=== PATIENT | female | born 1945 | race Caucasian/White ===

== ENCOUNTER → 2016-08-12 | Outpatient (CLI) | payer MEDICARE ==
--- NOTE | 2016-08-13 10:59 | MM ---
Reason for exam: screening (asymptomatic). Last mammogram was performed 1 year and 2 months ago. History: Patient is postmenopausal and history of other cancer. Physical Findings: A clinical breast exam by your physician is recommended on an annual basis and results should be correlated with mammographic findings. MG 3D Screening Mammo W/Cad Bilateral CC and MLO view(s) were taken. Prior study comparison: May 30, 2015, bilateral MG screening mammo w CAD. January 03, 2014, right breast MG work up mamm w CAD RT. December 21, 2013, bilateral MG screening mammo w CAD. There are scattered fibroglandular densities. Finding: There are typically benign dystrophic, round calcifications in the right breast. There is no discrete abnormality. ASSESSMENT: Benign, BI-RAD 2 RECOMMENDATION: Routine screening mammogram of both breasts in 1 year.
== END | disposition home or self-care (01) ==
LOC: RADMAMWWP 09:19
PROVIDERS: ATTEND Internal Medicine
DX: Z12.31 Encounter for screening mammogram for malignant neoplasm of breast (principal)
CPT/HCPCS: 77063; G0202

== ENCOUNTER → 2017-04-15 | Outpatient (CLI) | payer MEDICARE ==
--- NOTE | 2017-04-15 15:12 | US ---
EXAMINATION TYPE: US thyroid st tissue head/neck DATE OF EXAM: 04/15/2017 COMPARISON: NONE CLINICAL HISTORY: E04.9 thyroid nodule. left thyroidectomy, enlarged gland GLAND SIZE: Right Lobe: 6.3 x 4.1 x 3.1 cm Overall Parenchyma: heterogenous Left Lobe: N/A Isthmus Thickness: 1.3 cm NODULES RIGHT: # of nodules measured on right: 1 - previous biopsy 1. 4.3 x X 5.0 x 3.3 cm hypoechoic solid nodule at the mid pole with well-defined margins. This n odule is wider than tall and shows intranodular vascularity. Prior size: EXPORT AGENT recently LEFT: removed ISTHMUS: # of nodules measured in the isthmus: 0 Bilateral neck scanned, no evidence of lymphadenopathy. IMPRESSION: Previously biopsied nodule right thyroid lobe. Left-sided thyroidectomy changes.
== END | disposition home or self-care (01) ==
LOC: RADUSWWP 14:04
PROVIDERS: ATTEND Internal Medicine
DX: E04.1 Nontoxic single thyroid nodule (principal); Z90.89 Acquired absence of other organs
CPT/HCPCS: 76536

== ENCOUNTER → 2017-06-03 | Outpatient (CLI) | payer MEDICARE ==
[2017-06-03 09:50] LABS: Basophils # (A) 0.1 k/uL (0-0.2); Basophils % (A) 1 %; Eosinophils # (A) 0.2 k/uL (0-0.7); Eosinophils % (A) 3 %; HCT 39.3 % (34.0-46.0); HGB 12.4 gm/dL (11.4-16.0); Hypochromasia Slight; Lymphocytes # (A) 1.9 k/uL (1.0-4.8); Lymphocytes % (A) 28 %; MCH 25.2 pg (25.0-35.0); MCHC 31.5 g/dL (31.0-37.0); Mean Platelet Volume 7.3; Monocytes # (A) 0.4 k/uL (0-1.0); Monocytes % (A) 5 %; Neutrophils # (A) 4.3 k/uL (1.3-7.7); Neutrophils % (A) 62 %; Platelet Count 195 k/uL (150-450); RBC 4.91 m/uL (3.80-5.40); RDW 15.8 % (11.5-15.5); WBC 6.9 k/uL (3.8-10.6)
[2017-06-03 10:11] LABS: Appearance,Urine Cloudy (Clear); Bacteria,Urine Occasional /hpf; Bilirubin,Urine Negative (Negative); Blood,Urine Small (Negative); Color,Urine Yellow; Glucose,Urine (UA) Negative (Negative); Ketones,Urine Negative (Negative); Leukocyte Esterase,Urine Large (Negative); Mucus,Urine Occasional /hpf; Nitrite,Urine Negative (Negative); Protein,Urine Negative (Negative); RBC,Urine 3 /hpf (0-5); Specific Gravity,Urine 1.015 (1.001-1.035); Squamous Epithelial Cell,Urine 5 /hpf (0-4); Urobilinogen,Urine <2.0 mg/dL (<2.0); WBC,Urine 12 /hpf (0-5)
[2017-06-03 10:19] LABS: ALT 59 U/L (9-52); AST 35 U/L (14-36); Alkaline Phosphatase 76 U/L (38-126); Anion Gap 10 mmol/L; Blood Urea Nitrogen 15 mg/dL (7-17); Calcium 9.6 mg/dL (8.4-10.2); Carbon Dioxide 28 mmol/L (22-30); Chloride 104 mmol/L (98-107); Cholesterol 195 mg/dL (<200); Glucose 106 mg/dL (74-99); HDL Cholesterol 40 mg/dL (40-60); LDL Cholesterol,Calculated 127 mg/dL (0-99); Potassium 4.1 mmol/L (3.5-5.1); Sodium 142 mmol/L (137-145); Total Bilirubin 0.5 mg/dL (0.2-1.3); Triglycerides 141 mg/dL (<150)
[2017-06-03 10:35] LABS: T4, Free (Free Thyroxine) 0.99 ng/dL (0.78-2.19)
[2017-06-03 16:02] LABS: Thyroid Peroxidase Antibodies 29.8 U/mL (0.0-60.0); Vitamin D 25 Hydroxy 32.4 ng/mL (30.0-100.0)
== END | disposition home or self-care (01) ==
LOC: LABWHC1 08:53
PROVIDERS: ATTEND Internal Medicine
DX: E55.9 Vitamin D deficiency, unspecified (principal); I10 Essential (primary) hypertension; E04.9 Nontoxic goiter, unspecified; R82.79 Other abnormal findings on microbiological examination of urine
CPT/HCPCS: 36415; 80053; 80061; 81001; 82306; 84439; 84443; 84481; 85025; 86376; 86800; 87086

== ENCOUNTER 2017-06-05 13:32 | Day surgery (SDC) | payer MEDICARE ==
[2017-06-05 12:21] VITALS: BP 146/79; PULSE 79; RESP 20; TEMP 98.1
--- NOTE | 2017-06-05 13:17 | US ---
ULTRASOUND GUIDED FNA THYROID BIOPSY: CLINICAL HISTORY: Large right thyroid nodule FINDINGS: The procedure was explained to the patient. The risks, complications, benefits and alternatives were discussed and any questions were answered. Informed consent was obtained. Patient was placed supin e on the ultrasound table and prepped and draped in the usual sterile fashion. Utilizing a 25 gauge needle, five passes were made into the requested right thyroid nodule. Patient was stable throughout the procedure. Pathology is pending. All elements of maximal barrier technique were utilized. IMPRESSION: 1. Successful ultrasound guided FNA thyroid biopsy.
== END 2017-06-05 13:35 | disposition home or self-care (01) ==
LOC: RADPROMAIN 13:32
PROVIDERS: ATTEND Otolaryngology
DX: E04.1 Nontoxic single thyroid nodule (principal)
CPT/HCPCS: 10022; 76942; 88173; 88305

== ENCOUNTER → 2017-06-07 | Outpatient (CLI) | payer MEDICARE ==
--- NOTE | 2017-06-09 08:12 | PE ---
EXAMINATION TYPE: PET CT fusion whole body DATE OF EXAM: 06/07/2017 CLINICAL HISTORY: 71-year-old female initial staging for melanoma. Patient with initial left leg surg johnson in December 2014. TECHNIQUE: Following the intravenous administration of 14.1 mCi of F-18 FDG, whole body images are performed from the skull vertex through the bilateral lower extremities. Images are reviewed on the [employer] in the coronal, axial, and sagittal planes. Reconstructed rotating images are created on ind [employer] workstation and reviewed on the computer. A localization and attenuation correction CT is performed in conjunction with the PET scan. Glucose level: 92 mg/dL CTDI: 4.98 / 3.11 mGy DLP: 501.93 / 272.51 mGy-cm COMPARISON: None. FINDINGS: PET: Heterogeneous enlargement of the right lobe of the thyroid gland measuring up to 4.6 cm. There is avery e heterogeneous mild increased uptake here, max SUV 2.8. There is an ametabolic subpleural lipoma measuring 4.8 cm along the left anterolateral chest. Otherw ise, physiologic FDG uptake within the neck and chest. Normal variation mild heterogeneous FDG uptake within the liver. A 1.8 cm low-density nodule in the right adrenal gland with attenuation of -5 Hounsfield units most s uggestive of a lipid rich adrenal adenoma. No FDG uptake here. Tiny subcentimeter hypodensity exophytic from the medial mid pole left kidney too small for accurate CT characterization. No discrete FDG uptake here, likely cyst. There is a moderate to intense short segment foci of FDG uptake within the distal sigmoid and rectum likely physiologic uptake. Otherwise, physiologic FDG uptake within the abdomen and pelvis. Examination of the legs shows degenerative uptake at the knees with moderate effusions. Foci of mild increased FDG uptake within the feet, particularly along the lateral dorsum of the left hindfoot, medial dorsum of the bilateral feet, and the medial plantar aspect of the right forefoot. C T shows no discrete skin lesions and uptake appears to localize to the musculature. Max SUV 2.2. This can be correlated with direct visualization. ATTENUATION CORRECTION CT: Evaluation of brain shows no midline shift, extra-axial fluid collection, or hydrocephalus. Paranasal sinuses and mastoid air cells are clear. No cervical lymphadenopathy. Heterogeneously enlarged right lobe of the thyroid gland as mentioned ab ove. Heart upper limits of normal in size with trace anterior basilar pericardial fluid. Ascending aorta ectatic 3.7 cm with conventional arch vessel branching anatomy. No thoracic lymphadenopathy. Mild dif fuse bronchial wall thickening could represent bronchitis or asthma. No consolidation or pleural effu lai. No dilated small bowel, free fluid, or free air. No mesenteric or retroperitoneal lymphadenopathy. No abnormal fluid collection in the pelvis. Uterus surgically absent. Pelvic phleboliths. Bilateral lower extremities demonstrate moderate knee effusions with associated degenerative change. No significant soft tissue abnormality seen. Bones: Degenerative changes at the hips and within the lower lumbar spine. Endplate spondylosis mid t o lower thoracic spine. IMPRESSION: 1. Variable short segment hypermetabolism in the distal sigmoid and rectum likely physiologic uptake. Direct visualization can be performed if the patient is not undergoing routine screening colonoscopy . 2. Heterogeneous enlargement of the right lobe of the thyroid gland measuring up to 4.6 cm. There is only mild FDG uptake here. Correlate with results of patient's FNA. 3. Foci of is mild increased uptake along the dorsum of the left greater than right hindfeet and with in the medial plantar right forefoot. Findings likely on a degenerative basis. Correlate with physica l exam findings to exclude any cutaneous lesions here. 4. Otherwise, no suspicious hypermetabolism to suggest metastatic disease. 5. Incidental: 1.8 cm benign lipid rich right adrenal adenoma.
== END | disposition home or self-care (01) ==
LOC: RADPETMAIN 07:28
PROVIDERS: ATTEND Internal Medicine
DX: Z08 Encounter for follow-up examination after completed treatment for malignant neoplasm (principal); E04.1 Nontoxic single thyroid nodule; R93.7 Abnormal findings on diagnostic imaging of other parts of musculoskeletal system; Z85.828 Personal history of other malignant neoplasm of skin
CPT/HCPCS: 78816; A9552

== ENCOUNTER → 2018-04-15 | Outpatient (CLI) | payer MEDICARE ==
--- NOTE | 2018-04-15 15:48 | US ---
EXAMINATION TYPE: US thyroid st tissue head/neck DATE OF EXAM: 04/15/2018 COMPARISON: US 2017 CLINICAL HISTORY: E04.1 Thyroid nodule. Thyroid nodule, left lobe removed 15-20 years ago, history of thyroid biopsy GLAND SIZE: Right Lobe: 6.3 x 2.9 x 5.1 cm Overall Parenchyma: heterogenous Left Lobe: removed Isthmus Thickness: 0.5 cm NODULES RIGHT: # of nodules measured on right: 1 1. 4.9 X 2.8 x 5.1 cm hypoechoic solid nodule at the mid pole with well-defined margins. This nodul e is wider than tall and shows intranodular vascularity. Prior size: 4.3 x 5.0 x 3.3 cm LEFT: # of nodules measured on left: 0 ISTHMUS: # of nodules measured in the isthmus: 0 Bilateral neck scanned, no evidence of lymphadenopathy. IMPRESSION: 1. Changes of left-sided thyroidectomy. 2. Increase in size and not solid nodule right thyroid lobe which has been biopsied previously.
== END | disposition home or self-care (01) ==
LOC: RADUSWWP 15:01
PROVIDERS: ATTEND Otolaryngology
DX: E04.1 Nontoxic single thyroid nodule (principal); E89.0 Postprocedural hypothyroidism
CPT/HCPCS: 76536

== ENCOUNTER → 2018-04-15 | Outpatient (CLI) | payer MEDICARE ==
--- NOTE | 2018-04-17 12:19 | MM ---
Reason for exam: screening (asymptomatic). Last mammogram was performed 1 year and 8 months ago. History: Patient is postmenopausal and history of other cancer. Physical Findings: A clinical breast exam by your physician is recommended on an annual basis and results should be correlated with mammographic findings. MG 3D Screening Mammo W/Cad Bilateral CC and MLO view(s) were taken. Prior study comparison: August 12, 2016, bilateral MG 3d screening mammo w/cad. May 30, 2015, bilateral MG screening mammo w CAD. The breast tissue is heterogeneously dense. This may lower the sensitivity of mammography. There is a new 6mm group of calcifications in the upper inner quadrant at middle depth is seen. Additionally re-evaluation of an 8mm group of calcifications in the upper inner quadrant at middle depth just posterior to the first group is suggested as small rounded masses appear to be associated. No suspicious abnormality left breast. ASSESSMENT: Incomplete: need additional imaging evaluation, BI-RAD 0 RECOMMENDATION: Special view mammogram of the right breast. [facility] will attempt to contact patient to return for supplemental views.
== END | disposition home or self-care (01) ==
LOC: RADMAMWWP 14:58
PROVIDERS: ATTEND Internal Medicine
DX: Z12.31 Encounter for screening mammogram for malignant neoplasm of breast (principal)
CPT/HCPCS: 77063; 77067

== ENCOUNTER → 2018-04-24 | Outpatient (CLI) | payer MEDICARE ==
--- NOTE | 2018-04-24 14:49 | MM ---
Reason for exam: additional evaluation requested from abnormal screening. Last mammogram was performed less than 1 month ago. History: Patient is postmenopausal and history of other cancer. Physical Findings: Nurse did not find any significant physical abnormalities on exam. MG 3D Work Up W/Cad RT CC with magnification, LM with magnification, and LM view(s) were taken of the right breast. Prior study comparison: April 15, 2018, bilateral MG 3d screening mammo w/cad. August 12, 2016, bilateral MG 3d screening mammo w/cad. The breast tissue is heterogeneously dense. This may lower the sensitivity of mammography. There are coarse heterogeneous calcifications at middle depth associated with a focal asymmetry retrospectively similar to exams back to 2013. No suspicious abnormality. These results were verbally communicated with the patient and result sheet given to the patient on 04/24/18. ASSESSMENT: Benign, BI-RAD 2 RECOMMENDATION: Return to routine screening mammogram schedule for both breasts.
== END ==
LOC: RADMAMWWP 13:58
PROVIDERS: ATTEND Internal Medicine
DX: R92.8 Other abnormal and inconclusive findings on diagnostic imaging of breast (principal)
CPT/HCPCS: 77065; G0279; 77061

== ENCOUNTER 2018-05-08 06:49 | Day surgery (SDC) | payer MEDICARE ==
[2018-05-06 11:34] VITALS: BMI 44.4
[~2018-05-08 06:49] MED LIST: LACTATED RINGERS 1,000 ML IV SCH
[2018-05-08 07:04] VITALS: TEMP 97.8
[2018-05-08] MEDS ORDERED: LACTATED RINGERS 1,000 ML IV ONE (07:06)
[2018-05-08] MEDS ORDERED: LIDOCAINE 1% 20 ML VIAL (10MG/ML) FOR IV START INTRADERMA ONE (07:07)
[2018-05-08 07:14] LABS: Glucose,Whole Blood 112 mg/dL (75-99)
[2018-05-08] MEDS ORDERED: PROPOFOL 10 MG/ML 20 ML VIAL IV ONE (07:37)
--- NOTE | 2018-05-08 07:56 | P.PCN ---
Date of Procedure: 05/08/18 Procedure(s) Performed: BRIEF HISTORY: Patient is a 72-year-old pleasant white female, scheduled for an elective colonoscopy as a part of evaluation of chronic diarrhea and intermittent rectal bleeding for the last 6 months duration. PROCEDURE PERFORMED: Colonoscopy with random biopsies. PREOPERATIVE DIAGNOSIS: Chronic diarrhea and intermittent rectal bleeding of 6 months duration. IV sedation per Anesthesia. PROCEDURE: After informed consent was obtained, the patient, was brought into the endoscopy unit. IV sedation was administered by Anesthesia under continuous monitoring. Digital rectal examination was normal. Initially the Olympus CF- 160 flexible video colonoscope was then inserted in the rectum, gradually advanced into the cecum without any difficulty. Careful examination was performed as the scope was gradually being withdrawn. Ileocecal valve and the appendiceal orifice were visualized and appeared normal. Prep was excellent. Mucosa of the cecum, ascending colon, transverse colon, descending colon, sigmoid colon, and rectum appeared normal. Random biopsies were done from ascending and descending colon to rule out microscopic/collagenous colitis. Retroflexion was performed in the rectum and small internal hemorrhoids were seen. The patient tolerated the procedure well. IMPRESSION: Normal-appearing colon from rectum to cecum with no evidence of colorectal neoplasia . Small internal hemorrhoids. RECOMMENDATIONS: Findings of this examination were discussed with the patient as well as his family. She was advised to follow with the biopsy results. She can have a repeat screening colonoscopy in 10 years..
[2018-05-08 08:07] VITALS: RESP 16
[2018-05-08 08:13] VITALS: BP 162/92; PULSE 72
== END 2018-05-08 08:35 | disposition home or self-care (01) ==
LOC: ORWHC2ENDO 06:49
PROVIDERS: ATTEND Internal Medicine Gastroenterology
DX: K52.9 Noninfective gastroenteritis and colitis, unspecified (principal); K64.8 Other hemorrhoids; I10 Essential (primary) hypertension; E78.49 Other hyperlipidemia; E11.9 Type 2 diabetes mellitus without complications; E05.90 Thyrotoxicosis, unspecified without thyrotoxic crisis or storm; K21.9 Gastro-esophageal reflux disease without esophagitis; Z79.84 Long term (current) use of oral hypoglycemic drugs; Z79.82 Long term (current) use of aspirin; Z79.899 Other long term (current) drug therapy; Z88.2 Allergy status to sulfonamides
CPT/HCPCS: 88305; 45380; J2704

== ENCOUNTER 2018-05-28 21:58 | Emergency (ER) | payer MEDICARE ==
--- NOTE | 2018-05-28 23:03 | ED ---
Chest Pain HPI - General Chief Complaint: Chest Pain Stated Complaint: Chest pain Time Seen by Provider: 05/28/18 22:22 Source: patient Mode of arrival: wheelchair Limitations: no limitations - History of Present Illness Initial Comments: This patient is 72-year-old woman who presents to be evaluate for episode chest pain that started around 9 PM. She states that she had been sitting and watching television. She states that it felt like the pain was across the entire chest bilaterally. She described as an aching, and then it was constant but then it did resolve. She states that she had tried to take a shower and this may have contributed to it resolving. The patient had told the triage personnel that she was having shortness of breath. Further discussion reveals that she was not frankly dyspneic but she had the sensation that when she tried to draw full breath that would catch. There was no diaphoresis. No nausea or vomiting. No lightheadedness, palpitations, or syncope. MD Complaint: chest pain -: hour(s) Onset: during rest Pain Location: left chest, right chest Pain Radiation: none Severity: mild Quality: aching Consistency: now resolved Improves With: nothing Worsens With: nothing Treatments Prior to Arrival: none - Related Data Home Medications Medication Instructions Recorded Confirmed Cholecalciferol [Vitamin D3] 2,000 unit PO DAILY 01/12/15 05/28/18 Lisinopril [Prinivil] 20 mg PO DAILY 01/12/15 05/28/18 metFORMIN HCL [Glucophage] 1,000 mg PO DAILY PRN 01/12/15 05/28/18 Aspirin EC [Ecotrin Low Dose] 81 mg PO DAILY 05/06/18 05/28/18 Atorvastatin [Lipitor] 20 mg PO HS 05/06/18 05/28/18 [place]-3 Fatty Acids/Fish Oil 1 cap PO DAILY 05/06/18 05/28/18 [[place]-3 Fish Oil 1,200 mg Sfgl] Vitamin B Complex 1 cap PO DAILY 05/28/18 05/28/18 Allergies Allergy/AdvReac Type Severity Reaction Status Date / Time Sulfa (Sulfonamide Allergy Rash/Hives Verified 05/28/18 22:39 Antibiotics) Review of Systems ROS Statement: Those systems with pertinent positive or pertinent negative responses have been documented in the HPI. ROS Other: All systems not noted in ROS Statement are negative. Constitutional: Denies: fever, chills, weakness Respiratory: Denies: cough, dyspnea, wheezes Cardiovascular: Reports: as per HPI, chest pain. Denies: palpitations, orthopnea, edema, syncope Gastrointestinal: Denies: abdominal pain, nausea, vomiting Genitourinary: Denies: dysuria, hematuria Musculoskeletal: Denies: back pain Skin: Denies: rash Neurological: Denies: headache, weakness, numbness EKG Findings - EKG Results: EKG: interpreted by ERMD, sinus rhythm (Rate 89 bpm) - Blocks, [place], Hypertrophy, ST Abn: AV and intraventricular conduction: right bundle branch block (fixed/ intermittent, complete/incomplete) QRS axis and voltage: left axis deviation (-30 to -90) Past Medical History Past Medical History: Cancer, Diabetes Mellitus, GERD/Reflux, Hyperlipidemia, Hypertension, Thyroid Disorder Additional Past Medical History / Comment(s): occas. palpitations. Hx. melanoma , overactive thyroid History of Any Multi-Drug Resistant Organisms: None Reported Past Surgical History: Cholecystectomy, Hysterectomy Additional Past Surgical History / Comment(s): L thyroidectomy, skin cancer removed, COLONOSCOPY Past Anesthesia/Blood Transfusion Reactions: No Reported Reaction Additional Past Anesthesia/Blood Transfusion Reaction / Comment(s): no blood transfusion Past Psychological History: No Psychological Hx Reported Smoking Status: Former smoker Past Alcohol Use History: None Reported Past Drug Use History: None Reported - Past Family History Mother Family Medical History: No Reported History General Exam Limitations: no limitations General appearance: alert, in no apparent distress Head exam: Present: atraumatic, normocephalic Eye exam: Present: normal appearance. Absent: scleral icterus, conjunctival injection ENT exam: Present: normal oropharynx Neck exam: Present: normal inspection Respiratory exam: Present: normal lung sounds bilaterally. Absent: respiratory distress, wheezes, rales, rhonchi, stridor Cardiovascular Exam: Present: regular rate, normal rhythm, normal heart sounds. Absent: systolic murmur, diastolic murmur, rubs, gallop GI/Abdominal exam: Present: soft. Absent: distended, tenderness, guarding, rebound, mass Extremities exam: Present: normal inspection, normal capillary refill. Absent: pedal edema, calf tenderness Back exam: Present: normal inspection. Absent: CVA tenderness (R), CVA tenderness (L) Neurological exam: Present: alert Skin exam: Present: warm, dry, intact, normal color. Absent: rash Course Vital Signs 05/28/18 05/28/18 05/28/18 22:04 22:30 23:00 Temperature 98.8 F Pulse Rate 86 83 73 Respiratory 20 17 18 Rate Blood Pressure 161/81 158/92 156/83 O2 Sat by Pulse 96 93 L 95 Oximetry Chest Pain MDM - [facility] Patient is 72-year-old woman presenting with chest pain that has resolved. Discussed results with the patient and did recommend admission for observation overnight with serial cardiac enzymes. The patient understands that she does have risk factor for cardiac disease. She states that she is feeling well at this time and would like to go home but she does agree to return should any symptoms recur. 4 should new symptoms develop. She will call the cardiology office in the morning to schedule close follow-up. We discussed return parameters. Disposition Clinical Impression: Chest pain Disposition: HOME SELF-CARE Condition: Good Instructions: Chest Pain (ED) Is patient prescribed a controlled substance at d/c from ED?: No Referrals: Julio C Honeycutt MD [Primary Care Provider] - 1-2 days Vicky Perez MD [STAFF PHYSICIAN] - 1-2 days
[2018-05-28 23:12] VITALS: RESP 18
--- NOTE | 2018-05-28 23:20 | XR ---
EXAMINATION TYPE: XR chest 2V DATE OF EXAM: 05/28/2018 COMPARISON: NONE HISTORY: Chest pain TECHNIQUE: Frontal and lateral views of the chest are obtained. FINDINGS: Heart and mediastinum are normal. Lungs are clear. Diaphragm is normal. Bony thorax is int act. IMPRESSION: No cardiopulmonary disease.
[2018-05-29 00:06] LABS: Basophils % (A) 0 %; Eosinophils # (A) 0.3 k/uL (0-0.7); Eosinophils % (A) 3 %; HCT 39.5 % (34.0-46.0); HGB 13.1 gm/dL (11.4-16.0); Lymphocytes # (A) 2.4 k/uL (1.0-4.8); Lymphocytes % (A) 24 %; MCHC 33.2 g/dL (31.0-37.0); MCV 78.2 fL (80.0-100.0); Microcytosis Slight; Monocytes # (A) 0.5 k/uL (0-1.0); Monocytes % (A) 5 %; Neutrophils % (A) 68 %; Platelet Count 203 k/uL (150-450); RBC 5.05 m/uL (3.80-5.40); RDW 15.5 % (11.5-15.5); WBC 10.3 k/uL (3.8-10.6)
[2018-05-29 00:18] LABS: ALT 56 U/L (9-52); AST 36 U/L (14-36); Albumin 4.3 g/dL (3.5-5.0); Alkaline Phosphatase 83 U/L (38-126); Anion Gap 10 mmol/L; Blood Urea Nitrogen 21 mg/dL (7-17); Calcium 9.9 mg/dL (8.4-10.2); Carbon Dioxide 27 mmol/L (22-30); Chloride 105 mmol/L (98-107); Glucose 162 mg/dL (74-99); Magnesium 1.7 mg/dL (1.6-2.3); Sodium 142 mmol/L (137-145); Total Bilirubin 0.4 mg/dL (0.2-1.3); Total Protein 7.2 g/dL (6.3-8.2)
[2018-05-29 00:29] LABS: Creatine Kinase 115 U/L (30-135)
[2018-05-29 00:38] LABS: D-Dimer 0.33 mg/L FEU (<0.60); Partial Thromboplastin Time 27.6 sec (22.0-30.0); Prothrombin Time 10.3 sec (9.0-12.0)
[2018-05-29 00:42] LABS: Creatine Kinase MB 1.2 ng/mL (0.0-2.4); Troponin I <0.012 ng/mL (0.000-0.034)
[2018-05-29 01:27] VITALS: BP 159/95; PULSE 68; TEMP 98.2
== END 2018-05-29 01:27 | disposition home or self-care (01) ==
LOC: EC 21:58
DX: R07.9 Chest pain, unspecified (principal); R06.9 Unspecified abnormalities of breathing; E78.5 Hyperlipidemia, unspecified; I10 Essential (primary) hypertension; E11.9 Type 2 diabetes mellitus without complications; Z87.891 Personal history of nicotine dependence; Z88.2 Allergy status to sulfonamides; Z79.82 Long term (current) use of aspirin; Z79.84 Long term (current) use of oral hypoglycemic drugs; Z79.899 Other long term (current) drug therapy; Z85.820 Personal history of malignant melanoma of skin; Z98.890 Other specified postprocedural states
CPT/HCPCS: 36415; 71046; 80053; 82550; 82553; 83735; 84484; 85025; 85379; 85610; 85730; 93005; 99285

== ENCOUNTER 2018-09-02 17:03 | Observation (INO) | payer MEDICARE ==
[2018-09-02] MEDS ORDERED: ASPIRIN 81 MG PO STA (17:18)
[2018-09-02] MEDS ORDERED: NITROGLYCERIN OINT 1 INCH/GM PACKET TOPICAL STA (17:18)
--- NOTE | 2018-09-02 17:22 | ED ---
General Adult HPI - General Chief complaint: Chest Pain Stated complaint: Chest pain, headache Time Seen by Provider: 09/02/18 17:05 Source: patient, RN notes reviewed Mode of arrival: ambulatory Limitations: no limitations - History of Present Illness Initial comments: This is a 73-year-old female with past medical history significant for diabetes hypertension high cholesterol. Patient also has a strong family history of heart disease. Patient states today while she was in the car she started having a flushed feeling and tingling all over body and up into her chest and she stated she felt a little lightheaded and possibly near syncopal. She had a few of these events and then he started to be associated with chest pain which radiated to her neck. Patient states she was also mildly diaphoretic with some of the chest pain episodes. Patient states she had no shortness of breath she had no nausea. Patient denies any abdominal pain. Patient states currently she is back to her baseline has no symptoms. Patient never felt any palpitations. Patient denies any headache patient denies any numbness or weakness. Patient denies any leg swelling or calf tenderness. Patient denies any abdominal pain. Patient denies any vomiting or diarrhea recently. Patient denies any recent fever chills or cough. - Related Data Home Medications Medication Instructions Recorded Confirmed Lisinopril [Prinivil] 20 mg PO DAILY 01/12/15 09/02/18 metFORMIN HCL [Glucophage] 500 mg PO BID 01/12/15 09/02/18 Aspirin EC [Ecotrin Low Dose] 81 mg PO DAILY 05/06/18 09/02/18 Atorvastatin [Lipitor] 20 mg PO HS 05/06/18 09/02/18 Etoile-3 Fatty Acids/Fish Oil 1 cap PO DAILY 05/06/18 09/02/18 [Etoile-3 Fish Oil 1,200 mg Sfgl] Vitamin B Complex 1 cap PO DAILY 05/28/18 09/02/18 Allergies Allergy/AdvReac Type Severity Reaction Status Date / Time Sulfa (Sulfonamide Allergy Rash/Hives Verified 09/02/18 18:18 Antibiotics) Review of Systems ROS Statement: Those systems with pertinent positive or pertinent negative responses have been documented in the HPI. ROS Other: All systems not noted in ROS Statement are negative. Past Medical History Past Medical History: Cancer, Diabetes Mellitus, GERD/Reflux, Hyperlipidemia, Hypertension, Thyroid Disorder Additional Past Medical History / Comment(s): occas. palpitations. Hx. melanoma, overactive thyroid History of Any Multi-Drug Resistant Organisms: None Reported Past Surgical History: Cholecystectomy, Hysterectomy Additional Past Surgical History / Comment(s): L thyroidectomy, skin cancer removed, COLONOSCOPY Past Anesthesia/Blood Transfusion Reactions: No Reported Reaction Additional Past Anesthesia/Blood Transfusion Reaction / Comment(s): no blood transfusion Past Psychological History: No Psychological Hx Reported Smoking Status: Former smoker Past Alcohol Use History: None Reported Past Drug Use History: None Reported - Past Family History Mother Family Medical History: No Reported History General Exam - General Exam Comments Initial Comments: GENERAL: Patient is well-developed and well-nourished. Patient is nontoxic and well- hydrated and is in mild distress. ENT: Neck is soft and supple. No significant lymphadenopathy is noted. Oropharynx is clear. Moist mucous membranes. Neck has full range of motion without anthony citing any pain. EYES: The sclera were anicteric and conjunctiva were pink and moist. Extraocular movements were intact and pupils were equal round and reactive to light. Eyelids were unremarkable. PULMONARY: Unlabored respirations. Good breath sounds bilaterally. No audible rales rhonchi or wheezing was noted. CARDIOVASCULAR: There is a regular rate and rhythm without any murmurs gallops or rubs. ABDOMEN: Soft and nontender with normal bowel sounds. No palpable organomegaly was noted . There is no palpable pulsatile mass. SKIN: Skin is clear with no lesions or rashes and otherwise unremarkable. NEUROLOGIC: Patient is alert and oriented x3. Cranial nerves II through XII are grossly intact. Motor and sensory are also intact. Normal speech, volume and content. Symmetrical smile. MUSCULOSKELETAL: Normal extremities with adequate strength and full range of motion. No lower extremity swelling or edema. No calf tenderness. LYMPHATICS: No significant lymphadenopathy is noted PSYCHIATRIC: Normal psychiatric evaluation. 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 Patient's EKG shows right bundle-branch block. Patient had no episode of chest discomfort again in the emergency department and a heart rate was up about 150. When I looked at the rhythm strip it look like potential atrial flutter so I started the patient heparin and started Cardizem drip. I spoke with Dr. Gutierres agreed to admit the patient admitted the patient I continue the heparin the Cardizem drip on the floor. I consult cardiology. I wrote admitting orders. - Lab Data Result diagrams: 09/02/18 17:40 09/02/18 17:40 Lab Results 09/02/18 09/02/18 09/02/18 Range/Units 17:40 17:40 17:40 WBC 12.2 H (3.8-10.6) k/uL RBC 5.09 (3.80-5.40) m/uL Hgb 12.4 (11.4-16.0) gm/dL Hct 39.1 (34.0-46.0) % MCV 76.9 L (80.0-100.0) fL MCH 24.4 L (25.0-35.0) pg MCHC 31.8 (31.0-37.0) g/dL RDW 15.6 H (11.5-15.5) % Plt Count 202 (150-450) k/uL Neutrophils % (Manual) 65 % Band Neutrophils % 1 % Lymphocytes % (Manual) 25 % Monocytes % (Manual) 4 % Eosinophils % (Manual) 4 % Basophils % (Manual) 1 % Neutrophils # (Manual) 8.00 H (1.3-7.7) k/uL Lymphocytes # (Manual) 3.05 (1.0-4.8) k/uL Monocytes # (Manual) 0.49 (0-1.0) k/uL Eosinophils # (Manual) 0.49 (0-0.7) k/uL Basophils # (Manual) 0.12 (0-0.2) k/uL Nucleated RBCs 0 (0-0) /100 WBC Manual Slide Review Performed Microcytosis Slight PT 10.2 (9.0-12.0) sec INR 0.9 (<1.2) APTT 27.2 (22.0-30.0) sec Sodium 141 (137-145) mmol/L Potassium 4.5 (3.5-5.1) mmol/L Chloride 106 (98-107) mmol/L Carbon Dioxide 22 (22-30) mmol/L Anion Gap 13 mmol/L BUN 18 H (7-17) mg/dL Creatinine 0.75 (0.52-1.04) mg/dL Est GFR (CKD-EPI)AfAm >90 (>60 ml/min/1.73 sqM) Est GFR (CKD-EPI)NonAf 79 (>60 ml/min/1.73 sqM) Glucose 124 H (74-99) mg/dL Calcium 9.9 (8.4-10.2) mg/dL Magnesium 1.5 L (1.6-2.3) mg/dL Total Bilirubin 0.8 (0.2-1.3) mg/dL AST 43 H (14-36) U/L ALT 33 (9-52) U/L Alkaline Phosphatase 87 (38-126) U/L Troponin I (0.000-0.034) ng/mL Total Protein 7.5 (6.3-8.2) g/dL Albumin 4.5 (3.5-5.0) g/dL 09/02/18 Range/Units 17:40 WBC (3.8-10.6) k/uL RBC (3.80-5.40) m/uL Hgb (11.4-16.0) gm/dL Hct (34.0-46.0) % MCV (80.0-100.0) fL MCH (25.0-35.0) pg MCHC (31.0-37.0) g/dL RDW (11.5-15.5) % Plt Count (150-450) k/uL Neutrophils % (Manual) % Band Neutrophils % % Lymphocytes % (Manual) % Monocytes % (Manual) % Eosinophils % (Manual) % Basophils % (Manual) % Neutrophils # (Manual) (1.3-7.7) k/uL Lymphocytes # (Manual) (1.0-4.8) k/uL Monocytes # (Manual) (0-1.0) k/uL Eosinophils # (Manual) (0-0.7) k/uL Basophils # (Manual) (0-0.2) k/uL Nucleated RBCs (0-0) /100 WBC Manual Slide Review Microcytosis PT (9.0-12.0) sec INR (<1.2) APTT (22.0-30.0) sec Sodium (137-145) mmol/L Potassium (3.5-5.1) mmol/L Chloride (98-107) mmol/L Carbon Dioxide (22-30) mmol/L Anion Gap mmol/L BUN (7-17) mg/dL Creatinine (0.52-1.04) mg/dL Est GFR (CKD-EPI)AfAm (>60 ml/min/1.73 sqM) Est GFR (CKD-EPI)NonAf (>60 ml/min/1.73 sqM) Glucose (74-99) mg/dL Calcium (8.4-10.2) mg/dL Magnesium (1.6-2.3) mg/dL Total Bilirubin (0.2-1.3) mg/dL AST (14-36) U/L ALT (9-52) U/L Alkaline Phosphatase (38-126) U/L Troponin I <0.012 (0.000-0.034) ng/mL Total Protein (6.3-8.2) g/dL Albumin (3.5-5.0) g/dL Critical Care Time Critical Care Time: Yes Total Critical Care Time: 35 Disposition Clinical Impression: Atrial flutter with rapid ventricular response Disposition: ADMITTED IP TO THIS HOSP Referrals: Julio C Honeycutt MD [Primary Care Provider] - 1-2 days Time of Disposition: 18:54
[2018-09-02 17:51] LABS: HCT 39.1 % (34.0-46.0); HGB 12.4 gm/dL (11.4-16.0); MCH 24.4 pg (25.0-35.0); MCHC 31.8 g/dL (31.0-37.0); MCV 76.9 fL (80.0-100.0); Mean Platelet Volume 7.5; Microcytosis Slight; Platelet Count 202 k/uL (150-450); RBC 5.09 m/uL (3.80-5.40); RDW 15.6 % (11.5-15.5); WBC 12.2 k/uL (3.8-10.6)
[2018-09-02 17:58] LABS: INR 0.9 (<1.2); Partial Thromboplastin Time 27.2 sec (22.0-30.0); Prothrombin Time 10.2 sec (9.0-12.0)
[2018-09-02 18:04] LABS: ALT 33 U/L (9-52); AST 43 U/L (14-36); Albumin 4.5 g/dL (3.5-5.0); Alkaline Phosphatase 87 U/L (38-126); Anion Gap 13 mmol/L; Blood Urea Nitrogen 18 mg/dL (7-17); Calcium 9.9 mg/dL (8.4-10.2); Carbon Dioxide 22 mmol/L (22-30); Chloride 106 mmol/L (98-107); Glucose 124 mg/dL (74-99); Magnesium 1.5 mg/dL (1.6-2.3); Potassium 4.5 mmol/L (3.5-5.1); Sodium 141 mmol/L (137-145); Total Bilirubin 0.8 mg/dL (0.2-1.3); Total Protein 7.5 g/dL (6.3-8.2)
[2018-09-02] MEDS ORDERED: HEPARIN SODIUM,PORCINE 5,000 UNIT/ML 1 ML VIAL IV ONE (18:04)
[2018-09-02 18:10] LABS: Band Neutrophils % 1 %; Basophils # (M) 0.12 k/uL (0-0.2); Eosinophils # (M) 0.49 k/uL (0-0.7); Lymphocytes # (M) 3.05 k/uL (1.0-4.8); Monocytes # (M) 0.49 k/uL (0-1.0); Neutrophils % (M) 65 %; Nucleated Red Blood Cells 0 /100 WBC (0-0); Total Cells Counted 100
[2018-09-02] MEDS ORDERED: HEPARIN SOD,PORK IN 0.45% NACL 25,000 UNIT in 0.45% NACL 1 250ML.BAG IV SCH (18:15)
[2018-09-02] MEDS ORDERED: DILTIAZEM 125 MG in SODIUM CHLORIDE 0.9% 100 ML IV SCH (18:15)
--- NOTE | 2018-09-02 18:20 | XR ---
EXAMINATION: XR chest 2V DATE AND TIME: 09/02/2018 6:08 PM CLINICAL INDICATION: PHH; Chest Pain TECHNIQUE: Departmental protocol COMPARISON: 05/28/2018 FINDINGS: There is a vague subtle 3 cm opacity superimposed over the left mid lung zone, and not definitely cor roborated on the lateral view. The lungs are negative for pulmonary edema or evidence of pneumonia. The pleural spaces are negative. The cardiac silhouette is not enlarged. The thoracic aorta is mildly tortuous. The skeletal structures and soft tissues are negative for acute findings. IMPRESSION: No definite acute cardiopulmonary process. However, 3 cm subtle opacity noted, for which CT chest w c on is advised for follow-up on a nonurgent basis.
[2018-09-02] MEDS ORDERED: NITROGLYCERIN SL TABS 0.4 MG TAB SUBLINGUAL PRN (18:55)
[2018-09-02] MEDS ORDERED: ATORVASTATIN 20 MG TAB PO SCH (21:00)
[2018-09-02] MEDS: INSULIN ASPART (NovoLOG) 100 UNIT/ML VIAL SQ SCH (23:20)
[2018-09-03] MEDS: NITROGLYCERIN OINT 1 INCH/GM PACKET TOPICAL SCH ×3 (01:57→11:41)
[2018-09-03] MEDS ORDERED: Magnesium Replacement Protocol 1 EACH MISC MISCELLANE PRN (02:05)
[2018-09-03] MEDS: MAGNESIUM SULFATE-D5W PMX 1 GM in DEXTROSE/WATER 1 100ML.BAG IVPB SCH ×2 (02:24→03:48)
[2018-09-03] MEDS ORDERED: HEPARIN SODIUM,PORCINE 5,000 UNIT/ML 1 ML VIAL IV PRN (04:17)
[2018-09-03] MEDS: INSULIN ASPART (NovoLOG) 100 UNIT/ML VIAL SQ SCH ×3 (06:35→17:33)
[2018-09-03 06:36] LABS: Glucose,Whole Blood 112 mg/dL (75-99)
[2018-09-03] MEDS: metFORMIN 500 MG TAB PO SCH ×2 (06:39→17:34)
[2018-09-03 07:38] LABS: Cholesterol 114 mg/dL (<200); HDL Cholesterol 34 mg/dL (40-60); LDL Cholesterol,Calculated 55 mg/dL (0-99); Triglycerides 125 mg/dL (<150)
[2018-09-03] MEDS ORDERED: ASPIRIN 81 MG PO SCH (09:00)
[2018-09-03] MEDS ORDERED: ASPIRIN 325 MG TAB PO SCH (09:00)
[2018-09-03] MEDS ORDERED: LISINOPRIL 20 MG TAB PO SCH (09:00)
[2018-09-03 09:22] VITALS: RESP 18
--- NOTE | 2018-09-03 10:49 | ECHOF ---
Referral Reason:arrythmia MEASUREMENTS -------- HEIGHT: 167.6 cm WEIGHT: 128.8 kg BP: 134/76 RVIDd: 3.1 cm (< 3.3) IVSd: 1.5 cm (0.6 - 1.1) LVIDd: 5.0 cm (3.9 - 5.3) LVPWd: 1.3 cm (0.6 - 1.1) IVSs: 2.0 cm LVIDs: 3.4 cm LVPWs: 1.5 cm LA Diam: 3.6 cm (2.7 - 3.8) LAESV Index (A-L): 25.14 ml/m Ao Diam: 3.2 cm (2.0 - 3.7) AV Cusp: 2.4 cm (1.5 - 2.6) MV EXCURSION: 14.577 mm (> 18.000) MV EF SLOPE: 108 mm/s (70 - 150) EPSS: 0.2 cm MV E Gera: 0.77 m/s MV DecT: 240 ms MV A Gera: 0.82 m/s MV E/A Ratio: 0.94 AV maxP.38 mmHg AV meanP.82 mmHg AR PHT: 513 ms RAP: 5.00 mmHg RVSP: 28.71 mmHg FINDINGS -------- Sinus rhythm. This was a technically adequate study. The left ventricular size is normal. There is moderate concentric left ventricular hypertrophy. O verall left ventricular systolic function is normal with, an EF between 60 - 65 %. The right ventricle is normal in size. Normal LA size by volume 22+/-6 ml/m2. The right atrium is normal in size. Lipomatous Hypertrophy of the atrial septum is present There is mild aortic regurgitation. There is mild aortic stenosis present. Peak/mean gradient acr oss the Aortic Valve is 18.38mmHg / 6.82mmHg. The mitral valve is normal. Mild tricuspid regurgitation present. Right ventricular systolic pressure is normal at < 35 mmHg. The pulmonic valve was not well visualized. The aortic root size is normal. Normal inferior vena cava with normal inspiratory collapse consistent with estimated right atrial pre ssure of 5 mmHg. There is no pericardial effusion. CONCLUSIONS -------- 1. Sinus rhythm. 2. This was a technically adequate study. 3. The left ventricular size is normal. 4. There is moderate concentric left ventricular hypertrophy. 5. Overall left ventricular systolic function is normal with, an EF between 60 - 65 %. 6. The right ventricle is normal in size. 7. Normal LA size by volume 22+/-6 ml/m2. 8. The right atrium is normal in size. 9. Lipomatous Hypertrophy of the atrial septum is present 10. There is mild aortic regurgitation. 11. There is mild aortic stenosis present. 12. Peak/mean gradient across the Aortic Valve is 18.38mmHg / 6.82mmHg. 13. The mitral valve is normal. 14. Mild tricuspid regurgitation present. 15. Right ventricular systolic pressure is normal at < 35 mmHg. 16. The pulmonic valve was not well visualized. 17. The aortic root size is normal. 18. Normal inferior vena cava with normal inspiratory collapse consistent with estimated right atrial pressure of 5 mmHg. 19. There is no pericardial effusion. HOME APPLIANCE TECH: Sarah Alvarenga RDCS
[2018-09-03 11:59] LABS: Glucose,Whole Blood 104 mg/dL (75-99)
[2018-09-03] MEDS ORDERED: APIXABAN 5 MG TAB PO SCH (12:15)
[2018-09-03 12:40] VITALS: PULSE 78
--- NOTE | 2018-09-03 14:04 | CONS ---
CONSULTATION CHIEF COMPLAINT: Palpitations and chest pain. Maida is a 73-year-old lady with history of hypertension, dyslipidemia, and non- insulin-dependent diabetes who presented to the hospital having had episodes of palpitations, feeling unwell and chest pain. Her chest discomfort was sharp, precordial, unrelated to exertion and associated with diaphoresis. She was found to be in atrial fibrillation, treated with intravenous Cardizem and heparin, converted back to sinus rhythm. An echocardiogram on her shows normal LV function with mild aortic stenosis. At the time of my evaluation this morning, she is in sinus rhythm and has a right bundle branch block. PAST MEDICAL HISTORY: Past medical history is significant for hypertension, dyslipidemia, and diabetes. MEDICATIONS: Medications include Glucophage 500 b.i.d., Prinivil 20 q. daily, Lipitor 20 q. daily and aspirin. ALLERGIES: Allergic to SULFA. FAMILY HISTORY: Family history is negative for premature coronary artery disease. SOCIAL HISTORY: Negative for current smoking, EtOH abuse, or drug abuse. REVIEW OF SYSTEMS: HEENT is unremarkable. CARDIAC: As described above. RESPIRATORY: Negative. GI: Negative, GENITOURINARY: Negative. ALLERGY/IMMUNOLOGY: Negative. SKIN: Negative. MUSCULOSKELETAL: Significant for arthritis. PSYCHOSOCIAL: Negative. ENDOCRINE: Negative. HEMATOLOGICAL: Negative. DERM: Negative. CONSTITUTIONAL: Negative. ONCOLOGICAL: Negative. Rest of the system review is not relevant. PHYSICAL EXAMINATION: On exam, patient is comfortable at rest. Vital signs are stable. There is no jugular venous distention. Carotid upstroke is normal. There is no bruit. Chest exam reveals good air entry bilaterally. Heart exam reveals first and second heart sounds. No gallop. No murmur. No rub. Abdomen is soft, nontender. Examination of extremities did not reveal edema. Peripheral pulses are felt. EKG shows sinus rhythm this morning with right bundle branch block. She has had an episode of A. fib. She converted back to sinus rhythm. ASSESSMENT: 1. Precordial chest pain, myocardial infarction is ruled out. 2. Paroxysmal atrial fibrillation, currently in sinus rhythm. PLAN: I will treat the patient with IV heparin and start her on Xarelto or Eliquis for long- term anticoagulation. She will need a stress test to evaluate for ischemic heart disease. We will do this in the outpatient setting. MMODL / IJN: [id number] /
[2018-09-03 16:19] VITALS: BP 185/81; TEMP 98.6
[2018-09-03 17:36] LABS: Glucose,Whole Blood 87 mg/dL (75-99)
--- NOTE | 2018-09-04 00:46 | DS ---
DISCHARGE SUMMARY HISTORY AND PHYSICAL/DISCHARGE SUMMARY: DATE OF ADMISSION: 09/02/2018 DATE OF SERVICE: September 02, 2018. DATE OF DISCHARGE: September 03, 2018 PRESENTING COMPLAINT: Chest pressure. HISTORY OF PRESENTING COMPLAINT: A very pleasant 73-year-old patient of Dr. Julio C Honeycutt. Chronic stable medical conditions include diabetes, GERD, hypertension, hyperlipidemia. The patient yesterday started up with achiness in the chest going across present on and off for most of the day. The patient was a bit dizzy. No shortness of breath. No perspiration. Noted break out in a sweat. [place] tired and run down. Went to a family doctor's office from where she was sent down to the ER. The patient is found to be in atrial fibrillation with rapid ventricular rate. Put on IV Cardizem and IV heparin. Patient then converted to sinus rhythm in the ER, remains on the floor. Overall feeling better. REVIEW OF SYSTEMS: CONSTITUTIONAL: Tired. HEENT None. RESPIRATORY as above. CARDIOVASCULAR: As above. GASTROINTESTINAL: Heartburn. GENITOURINARY: None. MUSCULOSKELETAL none. DERMATOLOGICAL, HEMATOLOGIC, LYMPHATIC: none. PSYCHIATRY none. NEUROLOGICAL: None. PAST MEDICAL HISTORY: Diabetes mellitus type 2, GERD, hypertension, hyperlipidemia, melanoma, overactive thyroid. PAST SURGICAL HISTORY: Cholecystectomy, hysterectomy, left thyroidectomy, skin cancer removed, colonoscopy. SOCIAL HISTORY: The patient stopped smoking 20 years ago. No alcohol. Lives with her daughter. FAMILY HISTORY: Reviewed, noncontributory to presentation. HOME MEDICATIONS: Include: 1. Glucophage 500 mg b.i.d. 2. Vitamin B complex 1 capsule p.o. daily. 3. Fish oil 1 capsule p.o. daily. 4. Lipitor 20 mg q.h.s. 5. Prinivil 20 mg p.o. daily. 6. Aspirin 81 mg p.o. daily. ALLERGIES: SULFA. PHYSICAL EXAMINATION: VITAL SIGNS: Temperature 98, pulse 76, respiratory rate 18, blood pressure 134/76, pulse ox 94 percent on room air. The patient's heart rate initially was 120s. GENERAL: Well-built BMI 46.6, sitting up, comfortable. EYES: Pupils equal. Conjunctivae normal. HEENT: External appearance of nose and ears normal. Oral cavity normal. NECK: JVD not raised. Mass not palpable. RESPIRATORY: Effort normal. LUNGS: Fair air entry. CARDIOVASCULAR: First and second sounds normal. No edema. ABDOMEN: Soft, nontender. Liver and spleen not palpable. PSYCHIATRY: Alert and oriented x3. Mood and affect normal. NEUROLOGICAL: Pupils equal. Cranial nerves grossly intact. Power and sensation grossly intact. INVESTIGATIONS: Initial telemetry showed atrial fibrillation with rapid ventricular rate. LDL is 55. White count 12.2, hemoglobin 12.4, platelets 202. Potassium 4.5, BUN 18, creatinine 0.75. Troponin x3 negative. TSH normal. ASSESSMENT: 1. Paroxysmal atrial fibrillation with rapid ventricular rate, symptomatic, need to rule out underlying cardiac ischemia. 2. Diabetes mellitus type 2 on oral hypoglycemic. 3. Gastroesophageal reflux disease. 4. Hyperlipidemia. 5. Essential hypertension. 6. Morbid obesity BMI 46.6. PLAN: Cardiology was consulted. The patient was initially on IV Cardizem and IV heparin. This was discontinued. The patient is started on Eliquis. I will add low-dose beta oswaldo and cut back the dose of Zestril. Care was discussed with the patient. Cleared by Cardiology. The patient will have an outpatient stress test. Discharge medications same as home medications except dose of Prinivil be cut back to 10 mg a day. Aspirin will be discontinued. Eliquis 2.5 mg p.o. b.i.d. and Lopressor 12.5 p.o. b.i.d. FOLLOWUP: Follow up with Dr. Herron on September 09, 2018. Follow with Dr. Julio C Honeycutt in [address] Julio C Honeycutt. This is both a history physical and discharge summary on this patient. MMODL / IJN: [id number] /
== END 2018-09-03 18:48 | disposition home or self-care (01) ==
LOC: EC 17:03 → 3SCARD 18:55
PROVIDERS: ADMIT Hospitalist; ATTEND Hospitalist
DX: I48.0 Paroxysmal atrial fibrillation (principal); I48.92 Unspecified atrial flutter; E11.9 Type 2 diabetes mellitus without complications; R07.2 Precordial pain; E66.01 Morbid (severe) obesity due to excess calories; Z68.42 Body mass index [BMI] 45.0-49.9, adult; K21.9 Gastro-esophageal reflux disease without esophagitis; E78.5 Hyperlipidemia, unspecified; E05.90 Thyrotoxicosis, unspecified without thyrotoxic crisis or storm; R42 Dizziness and giddiness; I35.0 Nonrheumatic aortic (valve) stenosis; E78.00 Pure hypercholesterolemia, unspecified; I45.10 Unspecified right bundle-branch block; I10 Essential (primary) hypertension; Z79.82 Long term (current) use of aspirin; Z79.84 Long term (current) use of oral hypoglycemic drugs; Z90.49 Acquired absence of other specified parts of digestive tract; Z90.710 Acquired absence of both cervix and uterus; Z88.2 Allergy status to sulfonamides; Z98.890 Other specified postprocedural states; Z87.891 Personal history of nicotine dependence; Z85.820 Personal history of malignant melanoma of skin
CPT/HCPCS: 96376 ×2; 96366 ×3; 96367; 96368; 96365; 99291; 36415; 93005; 93306; 80061; 80053; 83735 ×2; 84443; 84484 ×2; 85025; 85610; 85730 ×2; 71046; G0378 ×2; J1644 ×3; J3475; 99285

== ENCOUNTER → 2018-12-10 | Outpatient (CLI) | payer MEDICARE ==
--- NOTE | 2018-12-10 23:47 | CONS ---
CONSULTATION DATE OF SERVICE: 12/10/2018. 73-year-old lady had been evaluated in the sleep center for possible obstructive sleep apnea-hypopnea syndrome. HISTORY OF PRESENT ILLNESS SLEEP WAKE EVALUATION: SLEEP SCHEDULE: Usual patient's sleep schedule from 7:00 pm until 7 or 8 a.m. FALLING ASLEEP: She usually does fall asleep without problems. No TV in bedroom. DURING SLEEP: She sleeps on the side position with snoring and witnessed episodes of stopped breathing. During the sleep and awakenings from sleep with choking and nocturia. The patient wakes up from sleep about 4 times with 4 episodes of nocturia. Has symptoms of restless legs. Sometimes she is seeing short dreams right after falling asleep. No history of sleep paralysis or cataplexy. DURING THE DAY/SLEEP WAKE EVALUATION: During the day, she feel sleepiness. [place] Sleepiness Scale significantly increased to 14. She takes naps up to 4 times a day at 9 a.m. and 2:00 pm. PAST MEDICAL HISTORY: Positive for hypertension, diabetes mellitus, hyperlipidemia, history of atrial fibrillation and knee arthritis, hip arthritis. Past medical history is positive history of melanoma of left middle hip area treated surgically. Also known history of squamous cell carcinoma of the skin of the face. PAST SURGICAL HISTORY: Resection of thyroid for benign tumor, cholecystectomy, total hysterectomy, appendectomy. MEDICATIONS: Eliquis, metformin, metoprolol, lisinopril, atorvastatin and Losartan. SOCIAL HISTORY: Positive for smoking for about 20 pack/years; quit about 30 years ago. Alcohol consumption occasional. FAMILY HISTORY: Heart problems, hypertension, hyperlipidemia, sinus problems, sleep apnea, snoring, cancer, acid reflux, diabetes, thyroid problems, anemia, restless legs. REVIEW OF SYSTEMS: Multiple awakenings from sleep, sleepiness during the day. Swelling of the legs. PHYSICAL EXAMINATION: During physical exam, lady without distress. BP 193/90, HR 76, RR 16. BP was 193/90 in the left arm and 179/83 on the right arm. Height 5 feet 5.5 Inches, weight 297 pounds. Body mass index 48.6, temperature is 98.6, oxygen saturation from 96%. Oropharynx extremely low position of soft palate. Mallampati 4. Wide neck, 18 inches in circumference. Neck Supple, no JVD. Thyroid is not palpable. LUNGS Clear to percussion and to auscultation. Good air exchange. No wheezing or rhonchi. HEART S1, S2 regular. No murmurs, gallops, or rubs. ABDOMEN: Obese. Soft and nontender. Bowel sounds are present. No organomegaly appreciated. EXTREMITIES: 1+ ankle edema. 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 Cranial nerves 2 to 7 intact. There is no fasciculation or atrophy. noted. No focal deficits observed. IMPRESSION: 1. Loud snoring, witnessed episodes of stopped breathing during sleep, awakenings with choking, extremely low position of soft palate, Mallampati 4, wide neck 18 inches in circumference, sleepiness. [place] Sleepiness Scale increased to 14. Obstructive sleep apnea-hypopnea syndrome. 2. Obesity, body mass index 48.6. 3. Hypertension. 4. Diabetes mellitus. 5. Hyperlipidemia. 6. History of atrial fibrillation. 7. Knee arthritis. 8. Hip arthritis. 9. Status post thyroid resection for benign tumor. 10.Status post surgical treatment of melanoma of the left leg. 11.Status post surgical treatment of squamous cell carcinoma over the face. 12.Status post total hysterectomy. 13.Status post appendectomy. PLAN: 1. Polysomnography for evaluation of patient's breathing during sleep. 2. CPAP/BiPAP titration if sleep study confirms obstructive sleep apnea-hypopnea syndrome. 3. Preferable position during sleep on the side. 4. No driving if patient feels any sleepiness. 5. I will see patient for follow up visit to explain results of testing and following plan. Thank you very much for referring this patient for consultation. Sincerely, Jaime Mansfield MD, PhD, FAASM Diplomat of [employer] [facility] [facility] [place] MMODL / IJN: [id number] /
== END ==
LOC: SLEEP 15:38
PROVIDERS: ATTEND Internal Medicine
DX: G47.33 Obstructive sleep apnea (adult) (pediatric) (principal); E66.9 Obesity, unspecified; Z68.42 Body mass index [BMI] 45.0-49.9, adult; I10 Essential (primary) hypertension; E11.9 Type 2 diabetes mellitus without complications; E78.5 Hyperlipidemia, unspecified; I48.91 Unspecified atrial fibrillation; M13.869 Other specified arthritis, unspecified knee; M13.859 Other specified arthritis, unspecified hip; Z98.890 Other specified postprocedural states; Z90.710 Acquired absence of both cervix and uterus; Z90.49 Acquired absence of other specified parts of digestive tract; Z87.891 Personal history of nicotine dependence; Z79.01 Long term (current) use of anticoagulants; Z79.84 Long term (current) use of oral hypoglycemic drugs; Z79.899 Other long term (current) drug therapy
CPT/HCPCS: 99211

== ENCOUNTER → 2019-03-23 | Outpatient (CLI) | payer MEDICARE | END | disposition home or self-care (01) | LOC: CPPFTMAIN 09:33 | PROVIDERS: ATTEND Internal Medicine | DX: J44.9 Chronic obstructive pulmonary disease, unspecified (principal) | CPT/HCPCS: 94060; 94726; 94729 ==

== ENCOUNTER → 2019-04-29 | Outpatient (CLI) | payer MEDICARE ==
--- NOTE | 2019-04-29 16:56 | PN ---
PROGRESS NOTE DATE OF SERVICE: 04/29/2019 This patient is a 73-year-old lady who has been followed in [facility] for treatment of obstructive sleep apnea-hypopnea syndrome. Recently the patient had a polysomnogram which showed moderate obstructive sleep apnea and subsequently the patient had CPAP titration. With CPAP titration her respiration was normalized. I wrote a prescription for CPAP. Patient started to use it. Today is her first time returning back to the sleep center since starting to use her CPAP equipment. Patient feels better while using her CPAP. No snoring with the machine. [place] Sleepiness Scale today is 15, which is still above normal range. I discussed results of her sleep studies with the patient in detail. I checked her CPAP unit. CPAP pressure is 10 cm of water. Usage is 7/30 nights; 5/30 nights for more than 4 hours. Average usage 4.8 hours per night. Leak is 11 L/minute, which is normal range for a full-face mask. Apnea-hypopnea index is only 0.6, which is absolutely perfect. MEDICATIONS: 1. Eliquis. 2. Metformin. 3. Metoprolol. 4. Lisinopril. 5. Atorvastatin. 6. Losartan. PHYSICAL EXAMINATION: GENERAL: A pleasant patient in no distress. VITAL SIGNS: BP 164/86, HR 82, RR 16. Temperature 98.5. Weight 289.8, height 5 feet 6 inches, BMI 46.6. Oxygen saturation at room air 96%. HEENT: PERRLA, EOMI. Evaluation of oropharynx showed tongue protrudes midline. Low position of soft palate. Mallampati IV. NECK: Supple. No JVD. Thyroid is not palpable. LUNGS: Clear to percussion and to auscultation. Good air exchange. No wheezing or rhonchi. HEART: S1, S2 regular. No murmurs, gallops or rubs. ABDOMEN: Slightly obese. EXTREMITIES: No clubbing or cyanosis. COMMUNICATIONS DESIGNER: Awake, alert, and oriented X3. Cranial nerves 2 to 7 intact. There is no fasciculation or atrophy noted. No focal deficits observed. IMPRESSION: 1. Moderate obstructive sleep apnea-hypopnea syndrome; apnea-hypopnea index 21.4 with oxygen desaturation to 79%. Full normalization of patient's breathing while on CPAP at 10 cm of water; apnea-hypopnea index reduced to 0.6. 2. Periodic limb movements during titration. 3. Obesity. 4. Hypertension. 5. Diabetes mellitus. 6. Hyperlipidemia. 7. History of atrial fibrillation. 8. Knee arthritis. 9. Hepatitis. 10.Status post thyroid resection for benign tumor. 11.Status post surgical treatment of melanoma of left leg. 12.Status post surgical treatment of squamous cell carcinoma of the face. 13.Status post total hysterectomy. 14.Status post appendectomy. PLAN: 1. Patient will continue to use CPAP equipment every night for the whole night. She promised to do so. 2. Losing weight. 3. Sleep hygiene with regular time in bed for 7-1/2 to 8 hours. 4. No driving if feeling any sleepiness. 5. Losing weight. Thank you very much for allowing me to participate in the management of your patient. Sincerely, Jaime Mansfield MD, PhD, FAASM Diplomat of [employer] [employer] [facility] [place] MMODL / IJN: [id number] /
== END | disposition home or self-care (01) ==
LOC: SLEEP 15:20
PROVIDERS: ATTEND Internal Medicine
DX: G47.33 Obstructive sleep apnea (adult) (pediatric) (principal); E66.9 Obesity, unspecified; I10 Essential (primary) hypertension; E11.9 Type 2 diabetes mellitus without complications; E78.5 Hyperlipidemia, unspecified; M17.10 Unilateral primary osteoarthritis, unspecified knee; K75.9 Inflammatory liver disease, unspecified; Z68.42 Body mass index [BMI] 45.0-49.9, adult; Z90.710 Acquired absence of both cervix and uterus; Z90.49 Acquired absence of other specified parts of digestive tract; Z98.890 Other specified postprocedural states; Z86.79 Personal history of other diseases of the circulatory system; Z99.89 Dependence on other enabling machines and devices; Z79.01 Long term (current) use of anticoagulants; Z79.84 Long term (current) use of oral hypoglycemic drugs; Z79.899 Other long term (current) drug therapy

== ENCOUNTER 2019-08-07 22:00 | Emergency (ER) | payer MEDICARE ==
[2019-08-07 22:05] VITALS: BP 180/100; PULSE 88; RESP 18
[2019-08-07] MEDS ORDERED: SODIUM CHLORIDE 0.9% 500 ML 500 ML IV SCH (22:15)
[2019-08-07] MEDS: ACETAMINOPHEN TAB 325 MG TAB PO STA ×2 (22:16→22:50)
[2019-08-07 22:36] VITALS: TEMP 98.6
--- NOTE | 2019-08-07 22:57 | XR ---
EXAMINATION TYPE: XR chest 2V DATE OF EXAM: 08/07/2019 COMPARISON: 09/02/2018 HISTORY: Chest pain TECHNIQUE: 2 views. FINDINGS: Heart and mediastinum are within normal limits. There is 3.5 cm area of increased density over the l eft upper lobe that is apparently a lipoma on the left anterior chest pleura on the old PET CT scan o f 06/07/2017.. There is no pleural effusion. There are no hilar masses. Bony thorax is intact. IMPRESSION: No active cardiopulmonary disease. No change.
[2019-08-07 23:00] LABS: ALT 31 U/L (4-34); AST 32 U/L (14-36); African American GFR (CKD) >90 (>60 ml/min/1.73 sqM); Albumin 4.7 g/dL (3.5-5.0); Alkaline Phosphatase 123 U/L (38-126); Anion Gap 9 mmol/L; Blood Urea Nitrogen 17 mg/dL (7-17); C Reactive Protein 9.3 mg/L (<10.0); Calcium 9.5 mg/dL (8.4-10.2); Carbon Dioxide 26 mmol/L (22-30); Chloride 104 mmol/L (98-107); Glucose 122 mg/dL (74-99); Non-African American GFR(CKD) 90 (>60 ml/min/1.73 sqM); Sodium 139 mmol/L (137-145); Total Bilirubin 0.4 mg/dL (0.2-1.3); Total Protein 7.8 g/dL (6.3-8.2)
[2019-08-07 23:11] LABS: Prothrombin Time 10.1 sec (9.0-12.0)
[2019-08-07 23:14] LABS: Basophils % (A) 1 %; Eosinophils # (A) 0.3 k/uL (0-0.7); Eosinophils % (A) 3 %; HCT 39.1 % (34.0-46.0); Lymphocytes # (A) 2.8 k/uL (1.0-4.8); Lymphocytes % (A) 34 %; MCH 24.4 pg (25.0-35.0); MCHC 30.8 g/dL (31.0-37.0); MCV 79.1 fL (80.0-100.0); Mean Platelet Volume 7.3; Monocytes # (A) 0.4 k/uL (0-1.0); Monocytes % (A) 5 %; Neutrophils # (A) 4.7 k/uL (1.3-7.7); Neutrophils % (A) 56 %; Platelet Count 190 k/uL (150-450); RBC 4.94 m/uL (3.80-5.40); RDW 15.4 % (11.5-15.5); WBC 8.3 k/uL (3.8-10.6)
--- NOTE | 2019-08-07 23:19 | ED ---
SOB HPI - General Chief Complaint: Shortness of Breath Stated Complaint: Cough Time Seen by Provider: 08/07/19 22:09 Source: patient Mode of arrival: ambulatory Limitations: no limitations - History of Present Illness Initial Comments: Maida is a 74-year-old female who presents the ER today for evaluation of 1 month of nonproductive cough and shortness of breath. Patient reports she has mild symptoms she has an occasional clear runny nose and nonproductive cough she hasn't really fevers chills or body aches. She denies any foreign travel or known exposure to positive coronavirus patients. However patient does live at home with her grandchildren and was concerned that due to her persistent cough she could be sick and have a contagious disease therefore she came in for evaluation. - Related Data Home Medications Medication Instructions Recorded Confirmed metFORMIN HCL [Glucophage] 500 mg PO BID 01/12/15 09/02/18 Atorvastatin [Lipitor] 20 mg PO HS 05/06/18 09/02/18 [place]-3 Fatty Acids/Fish Oil 1 cap PO DAILY 05/06/18 09/02/18 [[place]-3 Fish Oil 1,200 mg Sfgl] Vitamin B Complex 1 cap PO DAILY 05/28/18 09/02/18 Previous Rx's Medication Instructions Recorded Apixaban [Eliquis] 5 mg PO BID #60 tab 09/03/18 Lisinopril [Prinivil] 10 mg PO DAILY #0 09/03/18 Metoprolol Tartrate [Lopressor] 12.5 mg PO BID #60 dose 09/03/18 Allergies Allergy/AdvReac Type Severity Reaction Status Date / Time Sulfa (Sulfonamide Allergy Rash/Hives Verified 08/07/19 22:03 Antibiotics) Review of Systems ROS Statement: Those systems with pertinent positive or pertinent negative responses have been documented in the HPI. ROS Other: All systems not noted in ROS Statement are negative. Past Medical History Past Medical History: Cancer, Diabetes Mellitus, GERD/Reflux, Hyperlipidemia, Hypertension, Thyroid Disorder Additional Past Medical History / Comment(s): occas. palpitations. Hx. melanoma, overactive thyroid History of Any Multi-Drug Resistant Organisms: None Reported Past Surgical History: Cholecystectomy, Hysterectomy Additional Past Surgical History / Comment(s): L thyroidectomy, skin cancer removed, COLONOSCOPY Past Anesthesia/Blood Transfusion Reactions: No Reported Reaction Additional Past Anesthesia/Blood Transfusion Reaction / Comment(s): no blood transfusion Past Psychological History: No Psychological Hx Reported Smoking Status: Former smoker Past Alcohol Use History: None Reported Past Drug Use History: None Reported - Past Family History Mother Family Medical History: No Reported History General Exam - General Exam Comments Initial Comments: Physical Exam GENERAL: Patient is well-developed and well-nourished. Patient is nontoxic and well-hydrated and is in no distress. HENT: Normocephalic, Atraumatic. EYES: PERRL, EOMI PULMONARY: Unlabored respirations. No audible rales rhonchi or wheezing was noted. CARDIOVASCULAR: There is a regular rate and rhythm without any murmurs gallops or rubs. ABDOMEN: Soft and nontender with normal bowel sounds. SKIN: Skin is clear with no lesions or rashes and otherwise unremarkable. : Deferred NEUROLOGIC: Patient is alert and oriented x3. Moving all extremities spontaneously MUSCULOSKELETAL: Normal extremities with adequate strength and full range of motion. No lower extremity swelling or edema. No calf tenderness. PSYCHIATRIC: Normal psychiatric evaluation. Limitations: no limitations Course Vital Signs 08/07/19 08/07/19 22:03 22:35 Temperature 99 F 98.6 F Pulse Rate 88 Respiratory 18 18 Rate Blood Pressure 180/100 O2 Sat by Pulse 97 98 Oximetry Medical Decision Making - Medical Decision Making The patient was seen and evaluated upon arrival to the emergency department History is obtained from patient History and physical exam are relatively unremarkable is a well-appearing 74-year-old female in no respiratory distress 1 month of symptoms she is afebrile any chest labs and imaging were obtained Results of acute abnormalities Patient was reassured that her symptoms are likely related to seasonal ALLERGIES none infectious source, I recommended she continue to children place at home and isolate from the general public as she is in the high risk category should she become infected. All questions pertaining care were answered return parameters discussed patient discharged home in stable condition. - Lab Data Result diagrams: 08/07/19 22:34 08/07/19 22:34 Lab Results 08/07/19 08/07/19 08/07/19 Range/Units 22:34 22:34 22:34 WBC 8.3 (3.8-10.6) k/uL RBC 4.94 (3.80-5.40) m/uL Hgb 12.0 (11.4-16.0) gm/dL Hct 39.1 (34.0-46.0) % MCV 79.1 L (80.0-100.0) fL MCH 24.4 L (25.0-35.0) pg MCHC 30.8 L (31.0-37.0) g/dL RDW 15.4 (11.5-15.5) % Plt Count 190 (150-450) k/uL Neutrophils % 56 % Lymphocytes % 34 % Monocytes % 5 % Eosinophils % 3 % Basophils % 1 % Neutrophils # 4.7 (1.3-7.7) k/uL Lymphocytes # 2.8 (1.0-4.8) k/uL Monocytes # 0.4 (0-1.0) k/uL Eosinophils # 0.3 (0-0.7) k/uL Basophils # 0.0 (0-0.2) k/uL PT 10.1 (9.0-12.0) sec INR 1.0 (<1.2) APTT 29.0 (22.0-30.0) sec Sodium 139 (137-145) mmol/L Potassium 4.0 (3.5-5.1) mmol/L Chloride 104 (98-107) mmol/L Carbon Dioxide 26 (22-30) mmol/L Anion Gap 9 mmol/L BUN 17 (7-17) mg/dL Creatinine 0.60 (0.52-1.04) mg/dL Est GFR (CKD-EPI)AfAm >90 (>60 ml/min/1.73 sqM) Est GFR (CKD-EPI)NonAf 90 (>60 ml/min/1.73 sqM) Glucose 122 H (74-99) mg/dL Plasma Lactic Acid Kulwinder (0.7-2.0) mmol/L Calcium 9.5 (8.4-10.2) mg/dL Total Bilirubin 0.4 (0.2-1.3) mg/dL AST 32 (14-36) U/L ALT 31 (4-34) U/L Alkaline Phosphatase 123 (38-126) U/L C-Reactive Protein 9.3 (<10.0) mg/L Total Protein 7.8 (6.3-8.2) g/dL Albumin 4.7 (3.5-5.0) g/dL 03/21/20 Range/Units 22:34 WBC (3.8-10.6) k/uL RBC (3.80-5.40) m/uL Hgb (11.4-16.0) gm/dL Hct (34.0-46.0) % MCV (80.0-100.0) fL MCH (25.0-35.0) pg MCHC (31.0-37.0) g/dL RDW (11.5-15.5) % Plt Count (150-450) k/uL Neutrophils % % Lymphocytes % % Monocytes % % Eosinophils % % Basophils % % Neutrophils # (1.3-7.7) k/uL Lymphocytes # (1.0-4.8) k/uL Monocytes # (0-1.0) k/uL Eosinophils # (0-0.7) k/uL Basophils # (0-0.2) k/uL PT (9.0-12.0) sec INR (<1.2) APTT (22.0-30.0) sec Sodium (137-145) mmol/L Potassium (3.5-5.1) mmol/L Chloride (98-107) mmol/L Carbon Dioxide (22-30) mmol/L Anion Gap mmol/L BUN (7-17) mg/dL Creatinine (0.52-1.04) mg/dL Est GFR (CKD-EPI)AfAm (>60 ml/min/1.73 sqM) Est GFR (CKD-EPI)NonAf (>60 ml/min/1.73 sqM) Glucose (74-99) mg/dL Plasma Lactic Acid Kulwinder 1.7 (0.7-2.0) mmol/L Calcium (8.4-10.2) mg/dL Total Bilirubin (0.2-1.3) mg/dL AST (14-36) U/L ALT (4-34) U/L Alkaline Phosphatase (38-126) U/L C-Reactive Protein (<10.0) mg/L Total Protein (6.3-8.2) g/dL Albumin (3.5-5.0) g/dL Disposition Clinical Impression: Cough Disposition: HOME SELF-CARE Condition: Stable Instructions (If sedation given, give patient instructions): Chronic Cough (ED) Is patient prescribed a controlled substance at d/c from ED?: No Referrals: Julio C Honeycutt MD [Primary Care Provider] - 1-2 days
== END 2019-08-07 23:52 | disposition home or self-care (01) ==
LOC: EC 22:00
DX: R05 Cough (principal); R06.02 Shortness of breath; I10 Essential (primary) hypertension; E11.9 Type 2 diabetes mellitus without complications; E78.5 Hyperlipidemia, unspecified; K21.9 Gastro-esophageal reflux disease without esophagitis; Z79.84 Long term (current) use of oral hypoglycemic drugs; Z79.899 Other long term (current) drug therapy; Z88.2 Allergy status to sulfonamides; Z87.891 Personal history of nicotine dependence; Z85.820 Personal history of malignant melanoma of skin
CPT/HCPCS: 36415; 71046; 80053; 83605; 84145; 85025; 85610; 85730; 86140; 87040; 99284

== ENCOUNTER 2021-02-27 20:44 | Emergency (ER) | payer MEDICARE ==
--- NOTE | 2021-02-27 21:46 | XR ---
EXAMINATION TYPE: XR chest 2V DATE OF EXAM: 02/27/2021 COMPARISON: 08/07/2019 HISTORY: Cough and fever TECHNIQUE: Single view FINDINGS: Heart is normal. Lungs are clear of consolidation. There is increased density over the left upper lung field. This is not significantly different than old exam. This area measures 3.5 cm. Bony thorax is intact. There is no pleural effusion. There is no heart failure. IMPRESSION: There are some chronic left upper lobe density stable compared to old exam that is appare ntly related to a lipoma demonstrated by previous PET CT scan. No acute lung disease.
[2021-02-27] MEDS ORDERED: IBUPROFEN 400 MG TAB PO STA (22:11)
[2021-02-27] MEDS ORDERED: SODIUM CHLORIDE 0.9% 50 ML IVPB ONE (22:30)
[2021-02-27] MEDS ORDERED: CASIRIVIMAB (REGN10933) (EUA) 600 MG, IMDEVIMAB (REGN10987) (EUA) 600 MG in SODIUM CHLO... IVPB ONE (22:45)
--- NOTE | 2021-02-27 22:53 | ED ---
SOB HPI - General Chief Complaint: Shortness of Breath Stated Complaint: Cough,SOB,COVID exposure Time Seen by Provider: 02/27/21 21:44 Source: patient, RN notes reviewed, old records reviewed Mode of arrival: ambulatory Limitations: no limitations - History of Present Illness Initial Comments: Patient is a 75-year-old female with history of diabetes, hypertension, presenting to emergency Department with complaints of cough, congestion, some mild shortness of breath over the past week. She states her daughter tested positive for Covid today and she feels like she has similar. She does not feel like she's had any fevers or chills, no nausea or vomiting. Her appetite has been normal. She states she took some Tylenol just prior to arrival and a ctually feels a lot better. She denies any chest pain, no abdominal pains, mild headache present. She has no blurry vision, no lightheadedness or dizziness. She is no further complaints today. Patient's has mild temperature 100.2 on arrival, rest of vitals within normal limits. - Related Data Home Medications Medication Instructions Recorded Confirmed metFORMIN HCL [Glucophage] 500 mg PO BID 01/12/15 02/27/21 Atorvastatin Calcium [Lipitor] 40 mg PO HS 02/27/21 02/27/21 Valsartan [Diovan] 320 mg PO DAILY 02/27/21 02/27/21 Previous Rx's Medication Instructions Recorded Apixaban [Eliquis] 5 mg PO BID #60 tab 09/03/18 Albuterol Inhaler [Ventolin Hfa 1 puff INHALATION RT-TID PRN #8 gm 02/28/21 Inhaler] Allergies Allergy/AdvReac Type Severity Reaction Status Date / Time Sulfa (Sulfonamide Allergy Rash/Hives Verified 02/27/21 23:02 Antibiotics) Review of Systems ROS Statement: Those systems with pertinent positive or pertinent negative responses have been documented in the HPI. ROS Other: All systems not noted in ROS Statement are negative. Past Medical History Past Medical History: Cancer, Diabetes Mellitus, GERD/Reflux, Hyperlipidemia, Hypertension, Thyroid Disorder Additional Past Medical History / Comment(s): occas. palpitations. Hx. melanoma, overactive thyroid History of Any Multi-Drug Resistant Organisms: None Reported Past Surgical History: Cholecystectomy, Hysterectomy Additional Past Surgical History / Comment(s): L thyroidectomy, skin cancer removed, COLONOSCOPY Past Anesthesia/Blood Transfusion Reactions: No Reported Reaction Additional Past Anesthesia/Blood Transfusion Reaction / Comment(s): no blood transfusion Past Psychological History: No Psychological Hx Reported Smoking Status: Never smoker Past Alcohol Use History: None Reported Past Drug Use History: None Reported - Past Family History Mother Family Medical History: No Reported History General Exam - General Exam Comments Initial Comments: GENERAL: Patient is well-developed and well-nourished. Patient is nontoxic and in no acute distress. HEAD: Atraumatic, normocephalic. EYES: Pupils equal round and reactive to light, extraocular movements intact, sclera anicteric, conjunctiva are normal. Eyelids were unremarkable. ENT: Nares patent, oropharynx clear without exudates. Moist mucous membranes. NECK: Normal range of motion, supple without lymphadenopathy or JVD. LUNGS: Unlabored respirations. Breath sounds clear to auscultation bilaterally and equal. No wheezes rales or rhonchi. HEART: Regular rate and rhythm without murmurs, rubs or gallops. ABDOMEN: Soft, nontender, normoactive bowel sounds. No guarding, no rebound. No masses appreciated. : Deferred MUSCULOSKELETAL: Normal extremities with adequate strength and normal range of motion, no pitting or edema. No clubbing or cyanosis. NEUROLOGICAL: Patient is alert and oriented x 3. Motor and sensory are also intact. Cranial nerves II through XII grossly intact. Symmetrical smile. Normal speech, normal gait. PSYCH: Normal mood, normal affect. SKIN: Warm, Dry, normal turgor, no rashes or lesions noted. Limitations: no limitations Course Vital Signs 02/27/21 02/27/21 21:06 23:18 Temperature 100.2 F H Pulse Rate 87 Respiratory 20 22 Rate Blood Pressure 182/83 O2 Sat by Pulse 95 Oximetry Medical Decision Making - Medical Decision Making Patient is a 75-year-old female history of diabetes, hypertension, presenting with upper respiratory symptoms, cough, congestion, mild shortness of breath over the past week. Patient's and daughter's tested positive for Covid today. Patient's test is also positive today. Her x-ray shows no acute pulmonary process. Patient's vitals are within normal limits. She took Tylenol just prior to arrival, feels improvement. She did have a low-grade temperature here, gave her some ibuprofen. She does meet qualifications for monoclonal antibodies which she did agree to. Patient developed infusion. Her vitals remained stable. She is ready for discharge. I will give her prescription for albuterol inhaler. She can follow up with her primary care. Return parameters were discussed with her and she verbalized understanding. Case discussed with Dr. Davis. - Lab Data Lab Results 02/27/21 Range/Units 21:12 Coronavirus (PCR) Detected A (Not Detectd) - EKG Data EKG Comments: Normal sinus rhythm, right bundle branch block, no signs of acute ST segment elevation. This is similar to her previous on 09/02/2018. Ventricular rate 86, LA interval 162, QTC 388. Disposition Clinical Impression: COVID-19 Disposition: HOME SELF-CARE Condition: Stable Instructions (If sedation given, give patient instructions): Coronavirus Disease 2019 (COVID-19) Additional Instructions: Please return to the Emergency Department if symptoms worsen or any other concerns. Use albuterol inhaler as needed for shortness of breath or cough. May take Tylenol/ Motrin for fever or body aches. Follow-up with your primary care as needed. Prescriptions: Albuterol Inhaler [Ventolin Hfa Inhaler] 1 puff INHALATION RT-TID PRN #8 gm PRN Reason: Shortness Of Breath Is patient prescribed a controlled substance at d/c from ED?: No Referrals: Lashawn Peterson MD [Primary Care Provider] - 1-2 days Time of Disposition: 00:49
[2021-02-27 23:20] VITALS: RESP 22
[2021-02-28 00:58] VITALS: BP 169/95; PULSE 74; TEMP 98.7
== END 2021-02-28 00:57 | disposition home or self-care (01) ==
LOC: EC 20:44
DX: U07.1 COVID-19 (principal); I10 Essential (primary) hypertension; E11.9 Type 2 diabetes mellitus without complications; K21.9 Gastro-esophageal reflux disease without esophagitis; E78.5 Hyperlipidemia, unspecified; E07.9 Disorder of thyroid, unspecified; Z79.84 Long term (current) use of oral hypoglycemic drugs; Z79.01 Long term (current) use of anticoagulants; Z88.2 Allergy status to sulfonamides; Z90.49 Acquired absence of other specified parts of digestive tract; Z90.710 Acquired absence of both cervix and uterus; Z85.828 Personal history of other malignant neoplasm of skin
CPT/HCPCS: 99285 ×2; 93005; 87635; 71046; M0243; Q0243

== ENCOUNTER 2021-10-01 11:47 | Inpatient (IN) | payer MEDICARE ==
[2021-10-01] MEDS ORDERED: SODIUM CHLORIDE 0.9% 500 ML 500 ML IV STA (12:37)
[2021-10-01] MEDS ORDERED: DILTIAZEM DRIP BOLUS FROM BAG 1 MG SOLN IV ONE (12:38)
--- NOTE | 2021-10-01 12:47 | ED ---
General Adult HPI - General Chief complaint: Chest Pain Stated complaint: Chest Pain,sent by Dr Time Seen by Provider: 10/01/21 12:20 Source: patient, RN notes reviewed, old records reviewed Mode of arrival: ambulatory Limitations: no limitations - History of Present Illness Initial comments: This is a 76-year-old female with past medical history significant for atrial fibrillation. Patient states she woke up this morning and felt her heart racing she states she took her pulse on 2 different occasions and both times over 200 beats a minute. Patient states she felt lightheaded and thought she might pass out she went to her primary medical care doctor and they sent to the emergency department. Patient states after about an hour to 2 of chest palpitations she started having some chest discomfort. Patient also states she was mildly short of breath. Patient states for the last couple days she's felt warm but never has taken her temperature. Patient denies any significant cough or sputum production. Patient denies any abdominal pain patient denies nausea vomiting diarrhea. - Related Data Home Medications Medication Instructions Recorded Confirmed metFORMIN HCL [Glucophage] 500 mg PO BID 01/12/15 10/01/21 Atorvastatin Calcium [Lipitor] 40 mg PO HS 02/27/21 10/01/21 Valsartan [Diovan] 320 mg PO DAILY 02/27/21 10/01/21 Beclomethasone Dip 80 Mcg/Puff 2 puff INHALATION RT-BID PRN 10/01/21 10/01/21 [Qvar 80 mcg] Cholecalciferol [Vitamin D3 (25 25 mcg PO DAILY 10/01/21 10/01/21 Mcg = 1000 Iu)] Cyanocobalamin (Vitamin B-12) 1,000 mcg PO DAILY 10/01/21 10/01/21 [Vitamin B-12] Multivit with Calcium,Iron,Min 1 tab PO DAILY 10/01/21 10/01/21 [Women's Multivitamin] Previous Rx's Medication Instructions Recorded Apixaban [Eliquis] 5 mg PO BID #60 tab 09/03/18 Allergies Allergy/AdvReac Type Severity Reaction Status Date / Time Sulfa (Sulfonamide Allergy Rash/Hives Verified 10/01/21 13:52 Antibiotics) Review of Systems ROS Statement: Those systems with pertinent positive or pertinent negative responses have been documented in the HPI. ROS Other: All systems not noted in ROS Statement are negative. Past Medical History Past Medical History: Cancer, Diabetes Mellitus, GERD/Reflux, Hyperlipidemia, Hypertension, Thyroid Disorder Additional Past Medical History / Comment(s): occas. palpitations. Hx. melanoma, overactive thyroid History of Any Multi-Drug Resistant Organisms: None Reported Past Surgical History: Cholecystectomy, Hysterectomy Additional Past Surgical History / Comment(s): L thyroidectomy, skin cancer removed, COLONOSCOPY Past Anesthesia/Blood Transfusion Reactions: No Reported Reaction Additional Past Anesthesia/Blood Transfusion Reaction / Comment(s): no blood transfusion Past Psychological History: No Psychological Hx Reported Smoking Status: Never smoker Past Alcohol Use History: None Reported Past Drug Use History: None Reported - Past Family History Mother Family Medical History: No Reported History General Exam - General Exam Comments Initial Comments: GENERAL: Patient is well-developed and well-nourished. Patient is nontoxic and well- hydrated and is in mild distress. ENT: Neck is soft and supple. No significant lymphadenopathy is noted. Oropharynx is clear. Moist mucous membranes. Neck has full range of motion without eliciting any pain. EYES: The sclera were anicteric and conjunctiva were pink and moist. Extraocular movements were intact and pupils were equal round and reactive to light. Eyelids were unremarkable. PULMONARY: Unlabored respirations. Good breath sounds bilaterally. No audible rales rhonchi or wheezing was noted. CARDIOVASCULAR: Patient is tachycardic at about 150 beats a minute and it is irregular. ABDOMEN: Soft and nontender with normal bowel sounds. No palpable organomegaly was noted. SKIN: Skin is clear with no lesions or rashes and otherwise unremarkable. NEUROLOGIC: Patient is alert and oriented x3. Cranial nerves II through XII are grossly intact. Motor and sensory are also intact. Normal speech, volume and content. Symmetrical smile. Cerebellar exam grossly intact. MUSCULOSKELETAL: Normal extremities with adequate strength and full range of motion. No lower extremity swelling or edema. No calf tenderness. LYMPHATICS: No significant lymphadenopathy is noted PSYCHIATRIC: Normal psychiatric evaluation. Limitations: no limitations Course Vital Signs 10/01/21 10/01/21 10/01/21 12:00 12:40 13:08 Temperature 98.1 F Pulse Rate 105 H 137 H 140 H Respiratory 16 12 Rate Blood Pressure 148/87 137/87 138/77 O2 Sat by Pulse 96 96 Oximetry Medical Decision Making - Medical Decision Making EKG shows atrial fibrillation with rapid ventricular response around 1 bpm QRS is 100 QT interval is 298 QTC is 381. Patient's EKG shows right bundle branch block but there is no ST segment elevation or depression. Patient is on eliquis ready for the A. fib. I started the patient Cardizem and I gave the patient Cardizem bolus and then a Cardizem drip. Patient's chest x-ray shows no acute abnormality. I spoke with some physicians agreed to admit the patient admitted the patient I wrote admitting orders. - Lab Data Result diagrams: 10/01/21 12:44 10/01/21 12:44 Lab Results 10/01/21 10/01/21 10/01/21 Range/Units 12:44 12:44 12:44 WBC 10.0 (3.8-10.6) k/uL RBC 5.01 (3.80-5.40) m/uL Hgb 12.6 (11.4-16.0) gm/dL Hct 40.1 (34.0-46.0) % MCV 80.0 (80.0-100.0) fL MCH 25.1 (25.0-35.0) pg MCHC 31.4 (31.0-37.0) g/dL RDW 15.5 (11.5-15.5) % Plt Count 206 (150-450) k/uL MPV 7.7 Neutrophils % 69 % Lymphocytes % 23 % Monocytes % 5 % Eosinophils % 2 % Basophils % 1 % Neutrophils # 6.9 (1.3-7.7) k/uL Lymphocytes # 2.3 (1.0-4.8) k/uL Monocytes # 0.5 (0-1.0) k/uL Eosinophils # 0.2 (0-0.7) k/uL Basophils # 0.1 (0-0.2) k/uL PT 11.2 (9.0-12.0) sec INR 1.0 (<1.2) APTT 29.4 (22.0-30.0) sec Sodium 142 (137-145) mmol/L Potassium 4.1 (3.5-5.1) mmol/L Chloride 108 H (98-107) mmol/L Carbon Dioxide 23 (22-30) mmol/L Anion Gap 11 mmol/L BUN 21 H (7-17) mg/dL Creatinine 0.61 (0.52-1.04) mg/dL Est GFR (CKD-EPI)AfAm >90 (>60 ml/min/1.73 sqM) Est GFR (CKD-EPI)NonAf 88 (>60 ml/min/1.73 sqM) Glucose 103 H (74-99) mg/dL Calcium 9.6 (8.4-10.2) mg/dL Magnesium 1.5 L (1.6-2.3) mg/dL Total Bilirubin 0.4 (0.2-1.3) mg/dL AST 75 H (14-36) U/L ALT 61 H (4-34) U/L Alkaline Phosphatase 78 (38-126) U/L Troponin I (0.000-0.034) ng/mL Total Protein 7.0 (6.3-8.2) g/dL Albumin 4.4 (3.5-5.0) g/dL 10/01/21 Range/Units 12:44 WBC (3.8-10.6) k/uL RBC (3.80-5.40) m/uL Hgb (11.4-16.0) gm/dL Hct (34.0-46.0) % MCV (80.0-100.0) fL MCH (25.0-35.0) pg MCHC (31.0-37.0) g/dL RDW (11.5-15.5) % Plt Count (150-450) k/uL MPV Neutrophils % % Lymphocytes % % Monocytes % % Eosinophils % % Basophils % % Neutrophils # (1.3-7.7) k/uL Lymphocytes # (1.0-4.8) k/uL Monocytes # (0-1.0) k/uL Eosinophils # (0-0.7) k/uL Basophils # (0-0.2) k/uL PT (9.0-12.0) sec INR (<1.2) APTT (22.0-30.0) sec Sodium (137-145) mmol/L Potassium (3.5-5.1) mmol/L Chloride (98-107) mmol/L Carbon Dioxide (22-30) mmol/L Anion Gap mmol/L BUN (7-17) mg/dL Creatinine (0.52-1.04) mg/dL Est GFR (CKD-EPI)AfAm (>60 ml/min/1.73 sqM) Est GFR (CKD-EPI)NonAf (>60 ml/min/1.73 sqM) Glucose (74-99) mg/dL Calcium (8.4-10.2) mg/dL Magnesium (1.6-2.3) mg/dL Total Bilirubin (0.2-1.3) mg/dL AST (14-36) U/L ALT (4-34) U/L Alkaline Phosphatase (38-126) U/L Troponin I <0.012 (0.000-0.034) ng/mL Total Protein (6.3-8.2) g/dL Albumin (3.5-5.0) g/dL Critical Care Time Critical Care Time: Yes Total Critical Care Time: 35 Disposition Clinical Impression: Atrial fibrillation with rapid ventricular response Disposition: ADMITTED IP TO THIS HOSP Referrals: Lashawn Peterson MD [Primary Care Provider] - 1-2 days Time of Disposition: 14:27
[2021-10-01] MEDS: DILTIAZEM 125 MG in SODIUM CHLORIDE 0.9% 100 ML IV SCH ×2 (12:59→13:00)
[2021-10-01 13:12] LABS: Basophils # (A) 0.1 k/uL (0-0.2); Basophils % (A) 1 %; Eosinophils # (A) 0.2 k/uL (0-0.7); Eosinophils % (A) 2 %; HCT 40.1 % (34.0-46.0); HGB 12.6 gm/dL (11.4-16.0); Lymphocytes # (A) 2.3 k/uL (1.0-4.8); Lymphocytes % (A) 23 %; MCH 25.1 pg (25.0-35.0); MCHC 31.4 g/dL (31.0-37.0); Mean Platelet Volume 7.7; Monocytes # (A) 0.5 k/uL (0-1.0); Monocytes % (A) 5 %; Neutrophils # (A) 6.9 k/uL (1.3-7.7); Neutrophils % (A) 69 %; Platelet Count 206 k/uL (150-450); RBC 5.01 m/uL (3.80-5.40); RDW 15.5 % (11.5-15.5)
[2021-10-01 13:26] LABS: Partial Thromboplastin Time 29.4 sec (22.0-30.0); Prothrombin Time 11.2 sec (9.0-12.0)
[2021-10-01 13:33] LABS: ALT 61 U/L (4-34); AST 75 U/L (14-36); African American GFR (CKD) >90 (>60 ml/min/1.73 sqM); Albumin 4.4 g/dL (3.5-5.0); Alkaline Phosphatase 78 U/L (38-126); Anion Gap 11 mmol/L; Blood Urea Nitrogen 21 mg/dL (7-17); Calcium 9.6 mg/dL (8.4-10.2); Carbon Dioxide 23 mmol/L (22-30); Chloride 108 mmol/L (98-107); Glucose 103 mg/dL (74-99); Magnesium 1.5 mg/dL (1.6-2.3); Non-African American GFR(CKD) 88 (>60 ml/min/1.73 sqM); Potassium 4.1 mmol/L (3.5-5.1); Sodium 142 mmol/L (137-145); Total Bilirubin 0.4 mg/dL (0.2-1.3)
[2021-10-01] MEDS ORDERED: NITROGLYCERIN SL TABS 0.4 MG TAB SUBLINGUAL PRN (14:28)
--- NOTE | 2021-10-01 14:56 | XR ---
EXAMINATION TYPE: XR chest 2V DATE OF EXAM: 10/01/2021 COMPARISON: Chest x-ray February 27, 2021 HISTORY: Chest pain and shortness of breath TECHNIQUE: Frontal and lateral views of the chest are obtained. FINDINGS: There is chronic parenchymal changes bilaterally without suspicious new focal air space op acity, pleural effusion, or pneumothorax seen. The cardiac silhouette size is stable and upper limit s of normal. Multilevel spurring in the spine redemonstrated. IMPRESSION: Chronic changes without new acute pulmonary process.
--- NOTE | 2021-10-01 18:16 | P.HPIM ---
History of Present Illness H&P Date: 10/01/21 History of Presenting Illness: Patient is a very pleasant 76-year-old female with a past medical history of atrial fibrillation on anticoagulation with Eliquis, hypertension, hyp erlipidemia, status post partial thyroidectomy, melanoma with removal, [id number] diabetes mellitus type 2, and GERD. Patient presented to the emergency department with a chief complaint of palpitations and chest pain. Patient reports awakening around 6 AM feeling as though her heart was racing. Patient reports she monitored her pulse at home and both readings were greater than 200. Patient reports this persisted throughout the morning with only a few brief episodes of improvement. Patient states that this persisted throughout the morning and she developed some chest pain/tightness and went to be evaluated by her PCP who sent her directly to the hospital. Patient denied experiencing any dizziness, lightheadedness, shortness of breath, nausea, vomiting, or experiencing any numbness/tingling/weakness in her extremities. Upon arrival to the emergency department, patient was seen and fully evaluated. Patient was found to be in A. fib RVR with heart rate in 140s. An EKG was completed confirming atrial fibrillation with RVR to 141 bpm with a right bundle branch block chest x-ray was negative for acute cardiopulmonary process. CBC, coags, and BMP unremarkable. Liver profile did reveal slight elevation of AST at 75 and ALT of 61. Magnesium was found to be low at 1.5 and troponin normal findings at less than 0.012. Patient was given Cardizem bolus followed by inf usion and admitted under our services with consultation to cardiology. Review of systems: Pertinent positives and negatives as discussed in HPI, a complete review of systems was performed and all other systems are negative. Physical exam: Vital signs reviewed and stable. General: Nontoxic, no distress and appears stated age. Derm: Skin warm and dry, normal coloration for ethnicity. Head: Atraumatic, normocephalic and symmetric. Eyes: EOMs intact, no lid lag, and anicteric sclera Mouth: no lip lesions, mucus membranes moist Cardiovascular: regular rate and rhythm at time of assessment with normal S1S2, systolic murmur, positive posterior tibial pulses bilaterally, and cap refill < 2 seconds. Lungs: Respirations even, regular, and unlabored on room air. Lungs CTA bilaterally, no rhonchi, no rales, no wheezing, and no accessory muscle usage. Abdominal: soft, nontender to palpation, no guarding, no appreciable organomegaly Ext: ROM intact. No gross muscle atrophy, no edema, no contractures Neuro: Speech clear, face symmetrical and CN II-XII grossly intact with no noted focal neuro deficits Psych: Alert and oriented to person, place, time, and situation. Appropriate and pleasant affect. Assessment and Plan of Care: Atrial fibrillation with RVR Chest pain/tightness likely secondary to above, rule out acute coronary event -Cardiology consult, appreciate further recommendations -Telemetry monitoring -Trend troponins -Continue Cardizem infusion -Aspirin, atorvastatin, and valsartan -Lipid profile with a.m. labs. -Echocardiogram -TSH with reflex free T4 -Continue anticoagulation with Eliquis Hypomagnesemia -Replaced, we will continue to monitor with repeat a.m. labs. Hypertension -Monitor vital signs and continue daily medication regimen with valsartan Hyperlipidemia -Continue daily medication regimen with atorvastatin. The patient is admitted with an anticipated greater than 2 midnight stay for evaluation of atrial fibrillation with RVR CODE STATUS: Full code DVT prophylaxis: Eliquis Discussed with: Patient, patient's daughter, and RN Anticipated discharge date: Clinical course to determine Anticipated discharge place: home A total of 39 minutes was spent on the care of this complex patient more than 50% of the time was spent in counseling and care coordination. Past Medical History Past Medical History: Cancer, Diabetes Mellitus, GERD/Reflux, Hyperlipidemia, Hypertension, Thyroid Disorder Additional Past Medical History / Comment(s): occas. palpitations. Hx. melanoma, overactive thyroid History of Any Multi-Drug Resistant Organisms: None Reported Past Surgical History: Cholecystectomy, Hysterectomy Additional Past Surgical History / Comment(s): L thyroidectomy, skin cancer removed, COLONOSCOPY Past Anesthesia/Blood Transfusion Reactions: No Reported Reaction Additional Past Anesthesia/Blood Transfusion Reaction / Comment(s): no blood transfusion Past Psychological History: No Psychological Hx Reported Smoking Status: Never smoker Past Alcohol Use History: None Reported Past Drug Use History: None Reported - Past Family History Mother Family Medical History: No Reported History Medications and Allergies Home Medications Medication Instructions Recorded Confirmed Type metFORMIN HCL [Glucophage] 500 mg PO BID 01/12/15 10/01/21 History Apixaban [Eliquis] 5 mg PO BID #60 tab 09/03/18 10/01/21 Rx Atorvastatin Calcium [Lipitor] 40 mg PO HS 02/27/21 10/01/21 History Valsartan [Diovan] 320 mg PO DAILY 02/27/21 10/01/21 History Beclomethasone Dip 80 Mcg/Puff 2 puff INHALATION RT-BID PRN 10/01/21 10/01/21 History [Qvar 80 mcg] Cholecalciferol [Vitamin D3 (25 25 mcg PO DAILY 10/01/21 10/01/21 History Mcg = 1000 Iu)] Cyanocobalamin (Vitamin B-12) 1,000 mcg PO DAILY 10/01/21 10/01/21 History [Vitamin B-12] Multivit with Calcium,Iron,Min 1 tab PO DAILY 10/01/21 10/01/21 History [Women's Multivitamin] Allergies Allergy/AdvReac Type Severity Reaction Status Date / Time Sulfa (Sulfonamide Allergy Rash/Hives Verified 10/01/21 13:52 Antibiotics) Physical Exam Vitals: Vital Signs Temp Pulse Resp BP Pulse Ox 10/01/21 13:08 140 H 138/77 10/01/21 12:40 137 H 12 137/87 96 10/01/21 12:00 98.1 F 105 H 16 148/87 96 Intake and Output 09/30/21 10/01/21 10/01/21 22:59 06:59 14:59 Intake Total 0.083 Balance 0.083 Intake: Intake, IV Titration 0.083 Amount Diltiazem 125 mg In 0.083 Sodium Chloride 0.9% 100 ml @ 5 MG/HR 5 mls/hr IV .Q24H [facility] Rx#:[id number] Other: Weight 134.263 kg Results CBC & Chem 7: 10/02/21 10:05 10/02/21 10:05 Labs: Abnormal Lab Results - Last 24 Hours (Table) 10/01/21 Range/Units 12:44 Chloride 108 H (98-107) mmol/L BUN 21 H (7-17) mg/dL Glucose 103 H (74-99) mg/dL Magnesium 1.5 L (1.6-2.3) mg/dL AST 75 H (14-36) U/L ALT 61 H (4-34) U/L Assessment and Plan Assessment: This documentation was completed by the Nurse Practitioner. History, physical examination including assessment and plan were only completed by Nurse Practitioner and was NOT evaluated by myself the attending physician including all plan of care including discharge planning and documentation. I did NOT p articipate or have any communication regarding the patient, including orders, imaging, diagnostic work up, consultations, communication with registered RN/radio/tv technician and discharge planning/instructions. I will be co-signing this documentation as this is a requirement per [employer] [facility] and agreement.
[2021-10-01] MEDS: MAGNESIUM SULFATE-D5W PMX 1 GM in DEXTROSE/WATER 1 100ML.BAG IVPB SCH ×3 (19:18→21:21)
[2021-10-01] MEDS: ATORVASTATIN 40 MG TAB PO SCH (21:20)
[2021-10-01] MEDS: APIXABAN 5 MG TAB PO SCH (21:20)
[2021-10-02] MEDS: FLUTICASONE 110 MCG INHALER INHALATION PRN (07:32)
[2021-10-02] MEDS ORDERED: ASPIRIN 325 MG TAB PO SCH (09:00)
[2021-10-02] MEDS: CYANOCOBALAMIN 500 MCG TAB PO SCH (09:16)
[2021-10-02] MEDS: MULTIVITAMINS, THERA 1 EACH TAB PO SCH (09:16)
[2021-10-02] MEDS: VALSARTAN 160 MG TAB PO SCH (09:16)
[2021-10-02] MEDS: CHOLECALCIFEROL 25 MCG (1000 IU) TABLET PO SCH (09:17)
[2021-10-02] MEDS: APIXABAN 5 MG TAB PO SCH ×2 (09:17→19:57)
[2021-10-02] MEDS: METOPROLOL SUCCINATE (ER) 25 MG TAB.ER.24H PO SCH (09:17)
--- NOTE | 2021-10-02 10:02 | P.CRDCN ---
History of Present Illness Consult date: 10/02/21 History of present illness: HISTORY OF PRESENT ILLNESS: This is a 76-year-old female with a past medical history significant for hypertension, hyperlipidemia, and paroxysmal atrial fibrillation/flutter. Patient follows in the office with Dr. Herron. We have been asked to see the patient in consultation for A. fib with RVR. Patient examined at the bedside. Patient states she woke up at 6:00 this morning and was having palpitations. She denies having any chest pain or pressure. Denies any shortness of breath. She states that she felt like she was feeling hot at home. She states that she has a history of atrial fibrillation but his only had one previous episode. She is anticoagulated with Eliquis. She does not take any rate controlling medications. The patient was started on a IV Cardizem drip and has since converted to sinus mechanism. * EKG reveals A. fib with RVR. * Chest xray chronic changes without no acute pulmonary process * Laboratory data: WBC 10.0. Hemoglobin 12.6. Platelet count 206. Sodium 142. Potassium 4.1. BUN 21. Creatinine 0.61. Magnesium 1.5. Troponin negative 3. TSH 0.777. * Current home cardiac medications include valsartan 320 mg daily, Lipitor 40 mg daily, and Eliquis 5 mg twice a day. * Most recent echocardiogram obtained in 2019 revealed ejection fraction 60-65%, mild aortic regurgitation, mild aortic stenosis, mild tricuspid regurgitation REVIEW OF SYSTEMS: At the time of my exam: CONSTITUTIONAL: Denies fever or chills. HEENT: Denies blurred vision, vision changes, or eye pain. Denies hemoptysis CARDIOVASCULAR: Denies chest pain. Denies orthopnea. Denies PND. Denies palpitations RESPIRATORY: Denies shortness of breath. GASTROINTESTINAL: Denies abdominal pain. Denies nausea or vomiting. HEMATOLOGIC: Denies bleeding disorders. GENITOURINARY: Denies any blood in urine. SKIN: Denies pruitis. Denies rash. PHYSICAL EXAM: VITAL SIGNS: Reviewed. GENERAL: Well-developed in no acute distress. HEENT: Head is normocephalic. Pupils are equal, round. Sclerae anicteric. Mucous membranes of the mouth are moist. Neck supple. No JVD or thyromegaly LUNGS: Respirations even and unlabored. Lungs essentially clear to auscultation bilaterally. HEART: Regular rate and rhythm. S1 and S2 heard. ABDOMEN: Soft. Nondistended. Nontender. EXTREMITIES: Normal range of motion. No clubbing or cyanosis. Peripheral pulses intact. No lower extremity edema NEUROLOGIC: Awake and alert. Oriented x 3. ASSESSMENT: Palpitations Paroxysmal atrial fibrillation with RVR History of atrial fibrillation/typical atrial flutter Hypertension Hyperlipidemia PLAN: Obtain 2-D echo to assess correction correction function Discontinue IV Cardizem Begin metoprolol succinate 25 mg daily Patient may be discharged home this afternoon from a cardiac standpoint and follow up on an outpatient basis Nurse practitioner note has been reviewed by physician. Signing provider agrees with the documented findings, assessment, and plan of care. Past Medical History Past Medical History: Atrial Fibrillation, Cancer, Diabetes Mellitus, GERD/Reflux, Hyperlipidemia, Hypertension, Thyroid Disorder Additional Past Medical History / Comment(s): occas. palpitations. Hx. melanoma, overactive thyroid History of Any Multi-Drug Resistant Organisms: None Reported Past Surgical History: Appendectomy, Cholecystectomy, Hysterectomy Additional Past Surgical History / Comment(s): L thyroidectomy, skin cancer removed, COLONOSCOPY Past Anesthesia/Blood Transfusion Reactions: No Reported Reaction Additional Past Anesthesia/Blood Transfusion Reaction / Comment(s): no blood transfusion Past Psychological History: No Psychological Hx Reported Smoking Status: Never smoker Past Alcohol Use History: None Reported Additional Past Alcohol Use History / Comment(s): Quit smoking 20 yrs. ago Past Drug Use History: None Reported - Past Family History Mother Family Medical History: No Reported History Medications and Allergies Home Medications Medication Instructions Recorded Confirmed Type metFORMIN HCL [Glucophage] 500 mg PO BID 01/12/15 10/01/21 History Apixaban [Eliquis] 5 mg PO BID #60 tab 09/03/18 10/01/21 Rx Atorvastatin Calcium [Lipitor] 40 mg PO HS 02/27/21 10/01/21 History Valsartan [Diovan] 320 mg PO DAILY 02/27/21 10/01/21 History Beclomethasone Dip 80 Mcg/Puff 2 puff INHALATION RT-BID PRN 10/01/21 10/01/21 History [Qvar 80 mcg] Cholecalciferol [Vitamin D3 (25 25 mcg PO DAILY 10/01/21 10/01/21 History Mcg = 1000 Iu)] Cyanocobalamin (Vitamin B-12) 1,000 mcg PO DAILY 10/01/21 10/01/21 History [Vitamin B-12] Multivit with Calcium,Iron,Min 1 tab PO DAILY 10/01/21 10/01/21 History [Women's Multivitamin] Allergies Allergy/AdvReac Type Severity Reaction Status Date / Time Sulfa (Sulfonamide Allergy Rash/Hives Verified 10/01/21 13:52 Antibiotics) Physical Exam Vitals: Vital Signs Temp Pulse Pulse Resp BP BP Pulse Ox 10/02/21 09:10 97.7 F 86 16 156/94 95 10/02/21 06:18 76 18 144/72 97 10/02/21 04:00 69 18 141/72 98 10/02/21 03:33 79 18 141/72 97 10/02/21 02:22 78 18 144/75 97 10/02/21 00:30 72 18 147/73 98 10/01/21 21:48 97.9 F 69 14 147/73 97 10/01/21 18:35 98 F 78 14 140/78 10/01/21 14:37 79 12 151/83 97 10/01/21 13:08 140 H 138/77 10/01/21 12:40 137 H 12 137/87 96 10/01/21 12:00 98.1 F 105 H 16 148/87 96 Intake and Output 10/01/21 10/02/21 10/02/21 22:59 06:59 14:59 Other: Weight 134.263 kg Results 10/01/21 12:44 10/01/21 12:44 Cardiac Enzymes 10/01/21 10/01/21 10/01/21 Range/Units 12:44 12:44 16:03 AST 75 H (14-36) U/L Troponin I <0.012 <0.012 (0.000-0.034) ng/mL 10/01/21 Range/Units 18:15 AST (14-36) U/L Troponin I <0.012 (0.000-0.034) ng/mL Coagulation 10/01/21 Range/Units 12:44 PT 11.2 (9.0-12.0) sec APTT 29.4 (22.0-30.0) sec CBC 10/01/21 Range/Units 12:44 WBC 10.0 (3.8-10.6) k/uL RBC 5.01 (3.80-5.40) m/uL Hgb 12.6 (11.4-16.0) gm/dL Hct 40.1 (34.0-46.0) % Plt Count 206 (150-450) k/uL Comprehensive Metabolic Panel 10/01/21 Range/Units 12:44 Sodium 142 (137-145) mmol/L Potassium 4.1 (3.5-5.1) mmol/L Chloride 108 H (98-107) mmol/L Carbon Dioxide 23 (22-30) mmol/L BUN 21 H (7-17) mg/dL Creatinine 0.61 (0.52-1.04) mg/dL Glucose 103 H (74-99) mg/dL Calcium 9.6 (8.4-10.2) mg/dL AST 75 H (14-36) U/L ALT 61 H (4-34) U/L Alkaline Phosphatase 78 (38-126) U/L Total Protein 7.0 (6.3-8.2) g/dL Albumin 4.4 (3.5-5.0) g/dL Current Medications Generic Name Dose Route Start Last Admin Trade Name Freq PRN Reason Stop Dose Admin Apixaban 5 mg 10/01/21 21:00 10/02/21 09:17 Apixaban 5 Mg Tab PO 5 mg BID RUPERT Administration Protocol Atorvastatin Calcium 40 mg 10/01/21 21:00 10/01/21 21:20 Atorvastatin 40 Mg Tab PO 40 mg HS RUPERT Administration Cholecalciferol 25 mcg 10/02/21 09:00 10/02/21 09:17 Cholecalciferol 25 Mcg (1000 Iu) Tablet PO 25 mcg DAILY RUPERT Administration Cyanocobalamin 1,000 mcg 10/02/21 09:00 10/02/21 09:16 Cyanocobalamin 500 Mcg Tab PO 1,000 mcg DAILY RUPERT Administration Fluticasone Propionate 2 puff 10/01/21 14:14 10/02/21 07:32 Fluticasone 110 Mcg Inhaler INHALATION 2 puff RT-BID PRN Administration Shortness Of Breath Metoprolol Succinate 25 mg 10/02/21 09:00 10/02/21 09:17 Metoprolol Succinate (Er) 25 Mg Tab.Er.24h PO 25 mg DAILY RUPERT Administration Multivitamins 1 each 10/02/21 09:00 10/02/21 09:16 Multivitamins, Thera 1 Each Tab PO 1 each DAILY RUPERT Administration Nitroglycerin 0.4 mg 10/01/21 14:28 Nitroglycerin Sl Tabs 0.4 Mg Tab SUBLINGUAL Q5M PRN Chest Pain Valsartan 320 mg 10/02/21 09:00 10/02/21 09:16 Valsartan 160 Mg Tab PO 320 mg DAILY RUPERT Administration Intake and Output 10/01/21 10/02/21 10/02/21 22:59 06:59 14:59 Other: Weight 134.263 kg Patient Weight 10/03/21 06:59 Weight 134.263 kg 10/01/21 12:44 10/01/21 12:44
[2021-10-02 11:08] LABS: HCT 38.8 % (34.0-46.0); HGB 11.8 gm/dL (11.4-16.0); Hypochromasia Slight; MCHC 30.3 g/dL (31.0-37.0); MCV 82.4 fL (80.0-100.0); Mean Platelet Volume 7.6; Platelet Count 214 k/uL (150-450); RBC 4.71 m/uL (3.80-5.40); RDW 15.7 % (11.5-15.5); WBC 9.2 k/uL (3.8-10.6)
[2021-10-02 11:23] LABS: ALT 63 U/L (4-34); AST 73 U/L (14-36); African American GFR (CKD) >90 (>60 ml/min/1.73 sqM); Albumin 4.2 g/dL (3.5-5.0); Alkaline Phosphatase 74 U/L (38-126); Anion Gap 8 mmol/L; Blood Urea Nitrogen 13 mg/dL (7-17); Calcium 9.2 mg/dL (8.4-10.2); Carbon Dioxide 28 mmol/L (22-30); Chloride 105 mmol/L (98-107); Glucose 118 mg/dL (74-99); Magnesium 1.9 mg/dL (1.6-2.3); Non-African American GFR(CKD) >90 (>60 ml/min/1.73 sqM); Potassium 4.1 mmol/L (3.5-5.1); Sodium 141 mmol/L (137-145); Total Bilirubin 0.7 mg/dL (0.2-1.3); Total Protein 6.8 g/dL (6.3-8.2)
--- NOTE | 2021-10-02 16:53 | P.PN ---
Subjective Progress Note Date: 10/02/21 Hospital Course: Patient is a very pleasant 76-year-old female with a past medical history of atrial fibrillation on anticoagulation with Eliquis, hypertension, hyperlipidemia, status post partial thyroidectomy, melanoma with removal, [id number] diabetes mellitus type 2, and GERD. Patient presented to the emergency department with a chief complaint of palpitations and chest pain. Patient reports awakening around 6 AM feeling as though her heart was racing. Patient reports she monitored her pulse at home and both readings were greater than 200. Patient reports this persisted throughout the morning with only a few brief episodes of improvement. Patient states that this persisted throughout the morning and she developed some chest pain/tightness and went to be evaluated by her PCP who sent her directly to the hospital. Patient denied experiencing any dizziness, lightheadedness, shortness of breath, nausea, vomiting, or experiencing any numbness/tingling/weakness in her extremities. Upon arrival to the emergency department, patient was seen and fully evaluated. Patient was found to be in A. fib RVR with heart rate in 140s. An EKG was completed confir dania atrial fibrillation with RVR to 141 bpm with a right bundle branch block chest x-ray was negative for acute cardiopulmonary process. CBC, coags, and BMP unremarkable. Liver profile did reveal slight elevation of AST at 75 and ALT of 61. Magnesium was found to be low at 1.5 and troponin normal findings at less than 0.012. Patient was given Cardizem bolus followed by infusion and admitted under our services with consultation to cardiology. Physical exam: Patient seen and fully evaluated at bedside this morning. She reports no longer feeling the palpitations but overall states she does not quite feel right. Cardizem infusion was discontinued as patient converted to normal sinus rhythm and patient started on oral metoprolol. Echocardiogram was completed and pending results at this time. Awaiting echo results and further recommendations from cardiology. Vital signs reviewed and stable. General: Nontoxic, no distress and appears stated age. Derm: Skin warm and dry, normal coloration for ethnicity. Head: Atraumatic, normocephalic and symmetric. Eyes: EOMs intact, no lid lag, and anicteric sclera Mouth: no lip lesions, mucus membranes moist Cardiovascular: regular rate and rhythm at time of assessment with normal S1S2, systolic murmur, positive posterior tibial pulses bilaterally, and cap refill < 2 seconds. Lungs: Respirations even, regular, and unlabored on room air. Lungs CTA bilaterally, no rhonchi, no rales, no wheezing, and no accessory muscle usage. Abdominal: soft, nontender to palpation, no guarding, no appreciable organomegaly Ext: ROM intact. No gross muscle atrophy, no edema, no contractures Neuro: Speech clear, face symmetrical and CN II-XII grossly intact with no noted focal neuro deficits Psych: Alert and oriented to person, place, time, and situation. Appropriate and pleasant affect. Assessment and Plan of Care: Atrial fibrillation with RVR Chest pain/tightness likely secondary to above, rule out acute coronary event -Cardiology following, appreciate further recommendations -Telemetry monitoring -Troponins negative at less than 0.0123 draws. -Cardizem infusion discontinued as patient maintaining sinus rhythm at this time -Patient started on metoprolol 25 mg daily -Aspirin, atorvastatin, and valsartan -Echocardiogram -TSH normal findings is 0.777. -Continue anticoagulation with Eliquis Hypomagnesemia -Replaced, we will continue to monitor with repeat a.m. labs. Hypertension -Monitor vital signs and continue daily medication regimen with valsartan Hyperlipidemia -Continue daily medication regimen with atorvastatin. CODE STATUS: Full code DVT prophylaxis: Eliquis Discussed with: Patient and RN Anticipated discharge date: Likely tomorrow morning Anticipated discharge place: home A total of 35 minutes was spent on the care of this complex patient more than 50% of the time was spent in counseling and care coordination. Objective - Vital Signs Vital signs: Vital Signs Temp 97.9 F 10/01/21 21:48 Pulse 76 10/02/21 06:18 Resp 18 10/02/21 06:18 BP 144/72 10/02/21 06:18 Pulse Ox 97 10/02/21 06:18 Intake & Output 10/01/21 10/02/21 10/02/21 18:59 06:59 18:59 Intake Total 0.083 Balance 0.083 Weight 134.263 kg Intake: Intake, IV Titration 0.083 Amount Diltiazem 125 mg In 0.083 Sodium Chloride 0.9% 100 ml @ 5 MG/HR 5 mls/hr IV .Q24H [facility] Rx#:[id number] - Labs CBC & Chem 7: 10/02/21 10:05 10/02/21 10:05 Labs: Abnormal Lab Results - Last 24 Hours (Table) 10/01/21 Range/Units 12:44 Chloride 108 H (98-107) mmol/L BUN 21 H (7-17) mg/dL Glucose 103 H (74-99) mg/dL Magnesium 1.5 L (1.6-2.3) mg/dL AST 75 H (14-36) U/L ALT 61 H (4-34) U/L
[2021-10-02 18:48] LABS: Chol/HDL Ratio 3.49 Ratio; LDL Cholesterol,Calculated 65.6 mg/dL (0.0-131.0)
[2021-10-02] MEDS: ATORVASTATIN 40 MG TAB PO SCH (19:57)
[2021-10-03] MEDS: FLUTICASONE 110 MCG INHALER INHALATION PRN (07:09)
[2021-10-03] MEDS: CYANOCOBALAMIN 500 MCG TAB PO SCH (08:34)
[2021-10-03] MEDS: METOPROLOL SUCCINATE (ER) 25 MG TAB.ER.24H PO SCH (08:34)
[2021-10-03] MEDS: MULTIVITAMINS, THERA 1 EACH TAB PO SCH (08:34)
[2021-10-03] MEDS: VALSARTAN 160 MG TAB PO SCH (08:34)
[2021-10-03] MEDS: CHOLECALCIFEROL 25 MCG (1000 IU) TABLET PO SCH (08:35)
[2021-10-03] MEDS: APIXABAN 5 MG TAB PO SCH (08:35)
--- NOTE | 2021-10-03 10:08 | P.PN ---
Subjective Progress Note Date: 10/03/21 HISTORY OF PRESENT ILLNESS: This is a 76-year-old female with a past medical history significant for hypertension, hyperlipidemia, and paroxysmal atrial fibrillation/flutter. Patient follows in the office with Dr. Herron. We have been asked to see the patient in consultation for A. fib with RVR. Patient examined at the bedside. Patient states she woke up at 6:00 this morning and was having palpitations. She denies having any chest pain or pressure. Denies any shortness of breath. She states that she felt like she was feeling hot at home. She states that she has a history of atrial fibrillation but his only had one previous episode. She is anticoagulated with Eliquis. She does not take any rate controlling medications. The patient was started on a IV Cardizem drip and has since converted to sinus mechanism. * EKG reveals A. fib with RVR. * Chest xray chronic changes without no acute pulmonary process * Laboratory data: WBC 10.0. Hemoglobin 12.6. Platelet count 206. Sodium 142. Potassium 4.1. BUN 21. Creatinine 0.61. Magnesium 1.5. Troponin negative 3. TSH 0.777. * Current home cardiac medications include valsartan 320 mg daily, Lipitor 40 mg daily, and Eliquis 5 mg twice a day. * Most recent echocardiogram obtained in 2019 revealed ejection fraction 60-65%, mild aortic regurgitation, mild aortic stenosis, mild tricuspid regurgitation 10/03/2021 Patient examined this morning at the bedside. Patient denies chest pain or pres sure. She denies shortness of breath. She remains in sinus mechanism. Vital signs are stable. PHYSICAL EXAM: VITAL SIGNS: Reviewed. GENERAL: Well-developed in no acute distress. HEENT: Head is normocephalic. Pupils are equal, round. Sclerae anicteric. Mucous membranes of the mouth are moist. Neck supple. No JVD or thyromegaly LUNGS: Respirations even and unlabored. Lungs essentially clear to auscultation bilaterally. HEART: Regular rate and rhythm. S1 and S2 heard. ABDOMEN: Soft. Nondistended. Nontender. EXTREMITIES: Normal range of motion. No clubbing or cyanosis. Peripheral pulses intact. No lower extremity edema NEUROLOGIC: Awake and alert. Oriented x 3. ASSESSMENT: Palpitations Paroxysmal atrial fibrillation with RVR History of atrial fibrillation/typical atrial flutter Hypertension Hyperlipidemia PLAN: 2D echo ordered. Await results. Continue current cardiac medications Patient is stable for discharge home today from a cardiac standpoint. Nurse practitioner note has been reviewed by physician. Signing provider agrees with the documented findings, assessment, and plan of care. Objective - Vital Signs Vital signs: Vital Signs Temp 97 F L 10/03/21 08:00 Pulse 74 10/03/21 08:00 Resp 17 10/03/21 08:00 BP 155/70 10/03/21 08:00 Pulse Ox 96 10/03/21 08:00 Intake & Output 10/02/21 10/03/21 10/03/21 18:59 06:59 18:59 Intake Total 100 240 Balance 100 240 Weight 134.263 kg Intake: Intake, IV Titration 100 Amount Diltiazem 125 mg In 100 Sodium Chloride 0.9% 100 ml @ 5 MG/HR 5 mls/hr IV .Q24H [facility] Rx#:[id number] Oral 240 Other: Voiding Method Toilet Toilet # Voids 1 1 - Labs CBC & Chem 7: 10/02/21 10:05 10/02/21 10:05 Labs: Abnormal Lab Results - Last 24 Hours (Table) 10/02/21 10/02/21 Range/Units 10:05 10:05 MCHC 30.3 L (31.0-37.0) g/dL RDW 15.7 H (11.5-15.5) % Glucose 118 H (74-99) mg/dL AST 73 H (14-36) U/L ALT 63 H (4-34) U/L HDL Cholesterol 37.80 L (40.00-60.00) mg/dL
--- NOTE | 2021-10-03 12:29 | CA ---
Transthoracic Echo Report Name: Maida Foster Age: 76 Gender: F : 1945 Exam Date: 10/02/2021 09:37 Exam Location: [facility] Ht (in): 66 Wt (lb): 296 Ordering Physician: Blaze Saez Attending/Referring Phys: Audio Visual Facilities Engineer Angélica Mcdonald RDCS Procedure CPT: Indications: A. fib RVR, evaluate structure and function Cardiac Hx: Technical Quality: Fair Contrast 1: Total Dose (mL): Contrast 2: Total Dose (mL): MEASUREMENTS (Male / Female) Normal Values 2D ECHO LV Diastolic Diameter PLAX 4.7 cm 4.2 - 5.9 / 3.9 - 5.3 cm LV Systolic Diameter PLAX 2.9 cm IVS Diastolic Thickness 1.3 cm 0.6 - 1.0 / 0.6 - 0.9 cm LVPW Diastolic Thickness 1.4 cm 0.6 - 1.0 / 0.6 - 0.9 cm LV Relative Wall Thickness 0.6 RV Internal Dim ED PLAX 4.0 cm LA Volume 103.8 cm??? 18 - 58 / 22 - 52 cm??? M-MODE Aortic Root Diameter MM 2.9 cm LA Systolic Diameter MM 4.3 cm LA Ao Ratio MM 1.5 AV Cusp Separation MM 2.0 cm DOPPLER AV Peak Velocity 159.2 cm/s AV Peak Gradient 10.1 mmHg AI Peak Velocity 441.7 cm/s AI Peak Gradient 78.1 mmHg AI Pressure Half Time 409.2 ms LVOT Peak Velocity 146.7 cm/s LVOT Peak Gradient 8.6 mmHg MV Area PHT 3.9 cm??? Mitral E Point Velocity 97.1 cm/s Mitral A Point Velocity 54.5 cm/s Mitral E to A Ratio 1.8 MV Deceleration Time 194.1 ms TR Peak Velocity 220.2 cm/s TR Peak Gradient 19.4 mmHg Right Ventricular Systolic Press 22.6 mmHg FINDINGS Left Ventricle Normal left ventricular systolic function with no obvious regional wall motion abnormalities. Normal left ventricular diastolic filling pattern. Mildly increased left ventricular wall thickness. Left ventricular cavity size normal. Left ventricular ejection fraction is estimated at 55-60 %. Right Ventricle Mild right ventricular dilatation. Right ventricular systolic pressure within normal limits. Right Atrium Normal right atrial size. Left Atrium Moderate left atrial dilatation. No evidence for an atrial septal defect. Mitral Valve [id number] mitral regurgitation. Aortic Valve Mild aortic regurgitation. No aortic stenosis. Tricuspid Valve Structurally normal tricuspid valve. Mild tricuspid regurgitation. Pulmonic Valve Trace pulmonic regurgitation. Pericardium No pericardial effusion. Aorta Normal size aortic root and proximal ascending aorta. CONCLUSIONS Normal left ventricular dimension and systolic function Please see above for further details Previewed by: Dr. Harsha Rolon MD (Electronically Signed) Final Date: 03 Oct 2021 12:28
[2021-10-03 12:44] VITALS: BP 133/81; PULSE 65; RESP 16; TEMP 98.4
--- NOTE | 2021-10-03 13:17 | P.DS ---
Providers Date of admission: 10/01/21 14:28 Expected date of discharge: 10/03/21 Attending physician: Yenifer Lauren DO Consults: 10/01/21 14:28 Consult Physician Urgent Consulting Provider: [facility] Consult Reason/Comments: A. fib with rapid ventricular response Do you want consulting provider notified?: Yes Primary care physician: Lashawn Peterson MD Hospital Course: Discharge Diagnosis: Atrial fibrillation with RVR, Continue anticoagulation with Eliquis and patient started on metoprolol succinate 25 mg daily Chest pain/tightness likely secondary to above, acute coronary event ruled out Hypomagnesemia, resolved Hypertension. Monitor vital signs and continue daily medication regimen with valsartan Hyperlipidemia. Continue daily medication regimen with atorvastatin. Hospital Course: Patient is a very pleasant 76-year-old female with a past medical history of atrial fibrillation on anticoagulation with Eliquis, hypertension, hyperlipidemia, status post partial thyroidectomy, melanoma with removal, [id number] diabetes mellitus type 2, and GERD. Patient presented to the emergency department with a chief complaint of palpitations and chest pain. Patient reports awakening around 6 AM feeling as though her heart was racing. Patient reports she monitored her pulse at home and both readings were greater than 200. Patient reports this persisted throughout the morning with only a few brief episodes of improvement. Patient states that this persisted throughout the morning and she developed some chest pain/tightness and went to be evaluated by her PCP who sent her directly to the hospital. Patient denied experiencing any dizziness, lightheadedness, shortness of breath, nausea, vomiting, or experiencing any numbness/tingling/weakness in her extremities. Upon arrival to the emergency department, patient was seen and fully evaluated. Patient was found to be in A. fib RVR with heart rate in 140s. An EKG was completed confirming atrial fibrillation with RVR to 141 bpm with a right bundle branch block chest x-ray was negative for acute cardiopulmonary process. CBC, coags, and BMP unremarkable. Liver profile did reveal slight elevation of AST at 75 and ALT of 61. Magnesium was found to be low at 1.5 and troponin normal f indings at less than 0.012. Patient was given Cardizem bolus followed by infusion and admitted under our services with consultation to cardiology. Overnight patient converted back into normal sinus rhythm. Cardizem infusion was discontinued. Patient was started on oral metoprolol 25 mg daily. Echocardiogram completed revealing normal EF between 55 and 60% with mild to moderate mitral regurgitation. Patient monitored for 24 hours on metoprolol and remained in normal sinus rhythm with a rate of 60s to 70s. Patient is medically stable at this time. Cardiology recommending outpatient follow-up in 1 week. Patient to follow-up with PCP in 1-2 days and cardiology in 1 week as recommended. Physical exam: Vital signs reviewed and stable. General: Nontoxic, no distress and appears stated age. Derm: Skin warm and dry, normal coloration for ethnicity. Head: Atraumatic, normocephalic and symmetric. Eyes: EOMs intact, no lid lag, and anicteric sclera Mouth: no lip lesions, mucus membranes moist Cardiovascular: regular rate and rhythm at time of assessment with normal S1S2, systolic murmur, positive posterior tibial pulses bilaterally, and cap refill < 2 seconds. Lungs: Respirations even, regular, and unlabored on room air. Lungs CTA bilaterally, no rhonchi, no rales, no wheezing, and no accessory muscle usage. Abdominal: soft, nontender to palpation, no guarding, no appreciable organomegaly Ext: ROM intact. No gross muscle atrophy, no edema, no contractures Neuro: Speech clear, face symmetrical and CN II-XII grossly intact with no noted focal neuro deficits Psych: Alert and oriented to person, place, time, and situation. Appropriate and pleasant affect. A total of 39 minutes of time were spent preparing this complex discharge summary. Pt was discharged on 10/03/21 at 9:59 AM Patient Condition at Discharge: Stable Plan - Discharge Summary Discharge Rx Participant: No New Discharge Prescriptions: New Metoprolol Succinate (ER) [Toprol XL] 25 mg PO DAILY 60 Days #60 tab Continue metFORMIN HCL [Glucophage] 500 mg PO BID Apixaban [Eliquis] 5 mg PO BID #60 tab Valsartan [Diovan] 320 mg PO DAILY Atorvastatin Calcium [Lipitor] 40 mg PO HS Multivit with Calcium,Iron,Min [Women's Multivitamin] 1 tab PO DAILY Cholecalciferol [Vitamin D3 (25 Mcg = 1000 Iu)] 25 mcg PO DAILY Beclomethasone Dip 80 Mcg/Puff [Qvar 80 mcg] 2 puff INHALATION RT-BID PRN PRN Reason: Shortness Of Breath Cyanocobalamin (Vitamin B-12) [Vitamin B-12] 1,000 mcg PO DAILY Discharge Medication List metFORMIN HCL [Glucophage] 500 mg PO BID 01/12/15 [History] Apixaban [Eliquis] 5 mg PO BID #60 tab 09/03/18 [Rx] Atorvastatin Calcium [Lipitor] 40 mg PO HS 02/27/21 [History] Valsartan [Diovan] 320 mg PO DAILY 02/27/21 [History] Beclomethasone Dip 80 Mcg/Puff [Qvar 80 mcg] 2 puff INHALATION RT-BID PRN 10/01/21 [History] Cholecalciferol [Vitamin D3 (25 Mcg = 1000 Iu)] 25 mcg PO DAILY 10/01/21 [History] Cyanocobalamin (Vitamin B-12) [Vitamin B-12] 1,000 mcg PO DAILY 10/01/21 [History] Multivit with Calcium,Iron,Min [Women's Multivitamin] 1 tab PO DAILY 10/01/21 [History] Metoprolol Succinate (ER) [Toprol XL] 25 mg PO DAILY 60 Days #60 tab 10/03/21 [Rx] Follow up Appointment(s)/Referral(s): Prasad Herron MD [STAFF PHYSICIAN] - 10/12/21 11:45 am (at the main office. ) Lashawn Peterson MD [Primary Care Provider] - 10/05/21 9:00 am Patient Instructions/Handouts: A-fib (Atrial Fibrillation) (DC) Activity/Diet/Wound Care/Special Instructions: Activity: As tolerated. Take breaks as needed. Diet: Heart healthy and carb consistent diet. Avoid salts, or foods with hidden salts such as canned or boxed foods and frozen dinners. Extra salt makes your heart work harder and traps the fluid in your body for longer. Special Instructions: Take all of your medications as directed and remember to keep all of your doctor's appointments and follow-up as needed. Thank you for allowing us to participate in your care, it was truly a pleasure having you for our patient!!! Discharge Disposition: HOME SELF-CARE
== END 2021-10-03 13:25 | disposition home or self-care (01) | DRG 310 ==
LOC: EC 11:47 → 3SCARD 14:28
PROVIDERS: ADMIT Internal Medicine; ATTEND Internal Medicine
DX: I48.0 Paroxysmal atrial fibrillation (principal); E11.9 Type 2 diabetes mellitus without complications; E78.5 Hyperlipidemia, unspecified; E83.42 Hypomagnesemia; E89.0 Postprocedural hypothyroidism; N32.81 Overactive bladder; I10 Essential (primary) hypertension; I08.3 Combined rheumatic disorders of mitral, aortic and tricuspid valves; I45.10 Unspecified right bundle-branch block; Z79.01 Long term (current) use of anticoagulants; Z79.84 Long term (current) use of oral hypoglycemic drugs; Z79.899 Other long term (current) drug therapy; Z85.820 Personal history of malignant melanoma of skin; Z90.710 Acquired absence of both cervix and uterus; Z88.2 Allergy status to sulfonamides; Z90.49 Acquired absence of other specified parts of digestive tract
CPT/HCPCS: 36415; 71046; 80053; 80061; 83735; 84443; 84484; 85025; 85027; 85610; 85730; 93005; 93306; 94640; 94760; 96365; 96366; 96368; 96375; 99291

== ENCOUNTER 2023-03-28 18:44 | Emergency (ER) | payer MEDICARE ==
[2023-03-28] MEDS ORDERED: ACETAMINOPHEN TAB 500 MG TAB PO STA (19:35)
[2023-03-28] MEDS ORDERED: IBUPROFEN 600 MG TAB PO STA (19:35)
--- NOTE | 2023-03-28 20:26 | XR ---
EXAMINATION TYPE: XR chest 2V DATE OF EXAM: 03/28/2023 7:57 PM CLINICAL INDICATION:Female, 77 years old with history of cough, SOB; COMPARISON: Chest radiographs from 01/25/2023 TECHNIQUE: XR chest 2V Frontal and lateral views of the chest. FINDINGS: Lungs/Pleura: There is no evidence of pleural effusion, focal consolidation, or pneumothorax. Pulmonary vascularity: Unremarkable. Heart/mediastinum: Cardiomediastinal silhouette is unremarkable. Musculoskeletal: No acute osseous pathology. Other findings: None IMPRESSION: Subtle scattered opacities which may represent an atypical pneumonia.
[2023-03-28 20:58] VITALS: RESP 22
--- NOTE | 2023-03-28 20:58 | ED ---
General Adult HPI - General Chief complaint: Shortness of Breath Stated complaint: Covid/SOB Time Seen by Provider: 03/28/23 19:13 Source: patient Mode of arrival: wheelchair Limitations: no limitations - History of Present Illness Initial comments: 77-year-old female presenting with chief complaint of shortness of breath. Patient developed a cough last night. She tested for Covid at home and was positive. Patient states that she gets short of breath after exertion. She has no chest pain. No palpitations. No increasing lower extremity edema or unilateral leg swelling. She has not been taking any antipyretics for fever. Admits to nausea with no vomiting. No weakness. No numbness or tingling. - Related Data Home Medications Medication Instructions Recorded Confirmed metFORMIN HCL [Glucophage] 500 mg PO BID 01/12/15 10/01/21 Atorvastatin Calcium [Lipitor] 40 mg PO HS 02/27/21 10/01/21 Valsartan [Diovan] 320 mg PO DAILY 02/27/21 10/01/21 Beclomethasone Dip 80 Mcg/Puff 2 puff INHALATION RT-BID PRN 10/01/21 10/01/21 [Qvar 80 mcg] Cholecalciferol [Vitamin D3 (25 25 mcg PO DAILY 10/01/21 10/01/21 Mcg = 1000 Iu)] Cyanocobalamin (Vitamin B-12) 1,000 mcg PO DAILY 10/01/21 10/01/21 [Vitamin B-12] Multivit with Calcium,Iron,Min 1 tab PO DAILY 10/01/21 10/01/21 [Women's Multivitamin] Previous Rx's Medication Instructions Recorded Apixaban [Eliquis] 5 mg PO BID #60 tab 09/03/18 Metoprolol Succinate (ER) [Toprol 25 mg PO DAILY 60 Days #60 tab 10/03/21 XL] Acyclovir [Zovirax] 800 mg PO TID 7 Days #35 tab 01/25/23 Molnupiravir [Lagevrio (Eua)] 800 mg PO Q12HR 5 Days #40 cap 03/28/23 Allergies Allergy/AdvReac Type Severity Reaction Status Date / Time Sulfa (Sulfonamide Allergy Rash/Hives Verified 03/28/23 19:00 Antibiotics) Review of Systems ROS Statement: Those systems with pertinent positive or pertinent negative responses have been documented in the HPI. ROS Other: All systems not noted in ROS Statement are negative. Past Medical History Past Medical History: Cancer, Diabetes Mellitus, GERD/Reflux, Hyperlipidemia, Hypertension, Thyroid Disorder Additional Past Medical History / Comment(s): occas. palpitations. Hx. melanoma, overactive thyroid History of Any Multi-Drug Resistant Organisms: None Reported Past Surgical History: Cholecystectomy, Hysterectomy Additional Past Surgical History / Comment(s): L thyroidectomy, skin cancer removed, COLONOSCOPY Past Anesthesia/Blood Transfusion Reactions: No Reported Reaction Additional Past Anesthesia/Blood Transfusion Reaction / Comment(s): no blood transfusion Past Psychological History: No Psychological Hx Reported Smoking Status: Never smoker Past Alcohol Use History: None Reported Past Drug Use History: None Reported - Past Family History Mother Family Medical History: No Reported History General Exam Limitations: no limitations General appearance: alert, in no apparent distress Head exam: Present: atraumatic, normocephalic, normal inspection Eye exam: Present: normal appearance, EOMI Neck exam: Present: normal inspection, full ROM Respiratory exam: Present: normal lung sounds bilaterally. Absent: respiratory distress, wheezes, rales, rhonchi, stridor Cardiovascular Exam: Present: regular rate, normal rhythm, normal heart sounds. Absent: systolic murmur, diastolic murmur, rubs, gallop, clicks Neurological exam: Present: alert, oriented X3 Psychiatric exam: Present: normal affect, normal mood Skin exam: Present: warm, dry, intact, normal color. Absent: rash Course Vital Signs 03/28/23 03/28/23 03/28/23 18:57 20:42 21:14 Temperature 101 F H 101.3 F H 99.9 F H Pulse Rate 104 H 95 102 H Respiratory 18 22 22 Rate Blood Pressure 155/76 150/75 161/76 O2 Sat by Pulse 97 97 95 Oximetry EKG Findings - EKG Comments: EKG Findings:: Sinus rhythm ventricular rate 92. WV interval 177. QRS 137. QT 360. QTC 410. Right bundle branch block. No acute changes from previous EKG. Medical Decision Making - Medical Decision Making Was pt. sent in by a medical professional or institution (, PA, SIGNAL INTEGRITY ENGINEER, urgent care, hospital, or jail...) When possible be specific @ -No Did you speak to anyone other than the patient for history (EMS, parent, family, police, friend...)? What history was obtained from this source @ -No Did you review nursing and triage notes (agree or disagree)? Why? @ -I reviewed and agree with nursing and triage notes Were old charts reviewed (outside hosp., previous admission, EMS record, old EKG, old radiological studies, urgent care reports/EKG's, jail records)? Report findings @ -No old charts were reviewed Differential Diagnosis (chest pain, altered mental status, abdominal pain women, abdominal pain men, vaginal bleeding, weakness, fever, dyspnea, syncope, headache, dizziness, GI bleed, back pain, seizure, CVA, palpatations, mental health, musculoskeletal)? @ -MDM Differential Dyspnea: Coronary syndrome, arrhythmia, tamponade, asthma, COPD, pulmonary embolism, pneumonia, pneumothorax, pulmonary effusion, anaphylaxis, diabetic ketoacidosis, flailed chest, pulmonary contusion, diaphragmatic rupture, anemia, neuromuscular this is not meant to be an all-inclusive list. EKG interpreted by me (3pts min.). @ -As above X-rays interpreted by me (1pt min.). @ -Subtle scattered opacities which may represent an atypical pneumonia CT interpreted by me (1pt min.). @ -None done U/S interpreted by me (1pt. min.). @ -None done What testing was considered but not performed or refused? (CT, X-rays, U/S, labs)? Why? @ -I offered the patient a Covid test but she had a positive test at home and would not like to repeat testing here today. What meds were considered but not given or refused? Why? @ -None Did you discuss the management of the patient with other professionals (professionals i.e. , PA, SIGNAL INTEGRITY ENGINEER, lab, RT, psych nurse, manager social media, toe puller, teacher, staff air tactical officer, nurse case management)? Give summary @ -No Was smoking cessation discussed for >3mins.? @ -No Was critical care preformed (if so, how long)? @ -No Were there social determinants of health that impacted care today? How? (Homelessness, low income, unemployed, alcoholism, drug addiction, transportation, low edu. Level, literacy, decrease access to med. care, fdc, rehab)? @ -No Was there de-escalation of care discussed even if they declined (Discuss DNR or withdrawal of care, Hospice)? DNR status @ -No What co-morbidities impacted this encounter? (DM, HTN, Smoking, COPD, CAD, Cancer, CVA, ARF, Chemo, Hep., AIDS, mental health diagnosis, sleep apnea, morbid obesity)? @ -None Was patient admitted / discharged? Hospital course, mention meds given and route, prescriptions, significant lab abnormalities, going to OR and other pertinent info. @ -77-year-old female presenting with chief complaint of shortness of breath and cough, she recently tested positive for Covid at home. On physical exam heart and lungs are clear to auscultation. Patient is febrile and mildly tachycardic as a result. She is given Motrin and Tylenol. No chest pain. No unilateral leg swelling. Chest x-ray shows scattered opacities consistent with Covid. EKG shows no acute changes from previous. Patient is educated on today's findings. She will be started on Molnupiravir. Follow-up with PCP. Report back to ER with any new or worsening symptoms. Discussed return parameters and answered all questions. Patient conveyed verbal understanding and agreed to the plan. I discussed this case in detail with my attending Dr. Obrien Undiagnosed new problem with uncertain prognosis? @ -No Drug Therapy requiring intensive monitoring for toxicity (Heparin, Nitro, Insulin, Cardizem)? @ -No Were any procedures done? @ -No Diagnosis/symptom? @ -Covid Acute, or Chronic, or Acute on Chronic? @ -Acute Uncomplicated (without systemic symptoms) or Complicated (systemic symptoms)? @ -Uncomplicated Side effects of treatment? @ -No Exacerbation, Progression, or Severe Exacerbation? @ -No Poses a threat to life or bodily function? How? (Chest pain, [place], [place], pneumonia, PE, COPD, DKA, ARF, appy, cholecystitis, CVA, Diverticulitis, Homicidal, Suicidal, threat to staff... and all critical care pts) @ -No Disposition Clinical Impression: COVID Disposition: HOME SELF-CARE Condition: Good Instructions (If sedation given, give patient instructions): COVID-19 (Coronavirus Disease 2019) (ED) Additional Instructions: Follow-up with PCP. Report back to ER with any new or worsening symptoms. Take medication as prescribed. Prescriptions: Molnupiravir [Lagevrio (Eua)] 800 mg PO Q12HR 5 Days #40 cap Is patient prescribed a controlled substance at d/c from ED?: No Referrals: Melonie Fisher MD [Primary Care Provider] - 1-2 days Time of Disposition: 20:57
[2023-03-28 21:22] VITALS: BP 161/76; PULSE 102; TEMP 99.9
== END 2023-03-28 21:20 | disposition home or self-care (01) ==
LOC: EC 18:44
DX: U07.1 COVID-19 (principal); I45.10 Unspecified right bundle-branch block; E11.9 Type 2 diabetes mellitus without complications; E78.5 Hyperlipidemia, unspecified; I10 Essential (primary) hypertension; Z79.84 Long term (current) use of oral hypoglycemic drugs; Z79.899 Other long term (current) drug therapy; Z88.2 Allergy status to sulfonamides
CPT/HCPCS: 71046; 93005; 99285

== ENCOUNTER → 2023-06-03 | Outpatient (CLI) | payer MEDICARE ==
--- NOTE | 2023-06-03 14:18 | MM ---
Reason for Exam: Clinical finding. Last mammogram was performed 5 year(s) and 2 month(s) ago. Indicated Problems: Non-bloody discharge of both sides (Clear) for 2 Month(s). Patient History: Menarche at age 13. First Full-Term at age 24. Left ovary removed at age 36. Right ovary removed at age 36. Hysterectomy at age 36. Postmenopausal. Patient has history of breast feeding. Other cancer. Risk Values: Sarah 5 year model risk: 1.7%. NCI Lifetime model risk: 3.1%. Prior Study Comparison: 05/30/2015 Bilateral Screening Mammogram, [facility]. 08/12/2016 Bilateral Screening Mammogram, [facility]. 04/15/2018 Bilateral Screening Mammogram, [facility]. 04/24/2018 Right Diagnostic Mammogram, [facility]. Tissue Density: There are scattered fibroglandular densities. Findings: Analyzed By CAD. There is no suspicious group of microcalcifications or new suspicious mass. Benign-appearing calcifications bilaterally. There may be a dilated duct posterior to the left nipple. Overall Assessment: Incomplete: need additional imaging evaluation, BI-RAD 0 Management: Diagnostic Breast Ultrasound of the left breast. Results were given to the patient verbally at the time of exam. Patient should continue monthly self-breast exams. A clinical breast exam by your physician is recommended on an annual basis. This exam should not preclude additional follow-up of suspicious palpable abnormalities. Note on Sarah scores and lifetime risk: 1. A Sarah score greater than 3% is considered moderate risk. If this is the case, consider specialist referral to assess eligibility for a risk reducing agent. 2. If overall lifetime risk for the development of breast cancer is 20% or higher, the patient may qualify for future screening with alternating mammogram and breast MRI. Electronically signed and approved by: Martin Perales DO
--- NOTE | 2023-06-03 14:43 | USB ---
Reason for Exam: Clinical finding. Patient History: Menarche at age 13. First Full-Term at age 24. Left ovary removed at age 36. Right ovary removed at age 36. Hysterectomy at age 36. Postmenopausal. Patient has history of breast feeding. Other cancer. Risk Values: Sarah 5 year model risk: 1.7%. NCI Lifetime model risk: 3.1%. Technique: Method: Targeted. Prior Study Comparison: 08/12/2016 Bilateral Screening Mammogram, [facility]. 04/15/2018 Bilateral Screening Mammogram, [facility]. 04/24/2018 Right Diagnostic Mammogram, [facility]. Findings: The retroareolar of the left breast was scanned. Technique utilized:US breast limited LT Image; Ultrasound imaging of: Area of concern. Complicated cyst with thin septation at the retroareolar region of the left breast. Overall Assessment: Probably benign, BI-RAD 3 Management: Diagnostic Breast Ultrasound of the left breast in 6 months. A clinical breast exam by your physician is recommended on an annual basis and results should be correlated with mammographic findings. This exam should not preclude additional follow-up of suspicious palpable abnormalities. Results were given to the patient verbally at the time of exam. Electronically signed and approved by: Martin Perales DO
== END | disposition home or self-care (01) ==
LOC: RADMAMWWP 13:38
PROVIDERS: ATTEND Family Medicine
DX: N60.02 Solitary cyst of left breast (principal); R92.323 Mammographic fibroglandular density, bilateral breasts; N64.52 Nipple discharge; N64.4 Mastodynia; Z78.0 Asymptomatic menopausal state
CPT/HCPCS: 77066; 76642; G0279; 77062

== ENCOUNTER 2023-09-26 17:28 | Emergency (ER) | payer MEDICARE ==
[2023-09-26 17:53] VITALS: TEMP 99.2
--- NOTE | 2023-09-26 19:19 | ED ---
General Adult HPI - General Chief complaint: Weakness Stated complaint: Weakness Time Seen by Provider: 09/26/23 18:10 Source: patient, EMS, RN notes reviewed, old records reviewed Mode of arrival: EMS - History of Present Illness Initial comments: Patient is a 78-year-old female presents emergency department complaining of bilateral knee and hip weakness. Somewhat chronic. Believes she has arthritis. Denies any fevers, chills, cough. Denies any chest pain. Does endorse lower back pain with some radiation of the pain down bilateral lower extremities. Denies chest pain or shortness of breath. Presents for further evaluation at this time. Has a history of diabetes, hypertension, hyperlipidemia. Has noticed some bilateral leg swelling as well and is asking what would be causing this. No history of CHF. Is not on water pills. Does have a history of atrial fibrillation and is on Eliquis. No concern for PE at this time as she is compliant with his medications. Presents for further evaluation.Denies any acute trauma. - Related Data Home Medications Medication Instructions Recorded Confirmed metFORMIN HCL [Glucophage] 500 mg PO BID 01/12/15 10/01/21 Atorvastatin Calcium [Lipitor] 40 mg PO HS 02/27/21 10/01/21 Valsartan [Diovan] 320 mg PO DAILY 02/27/21 10/01/21 Beclomethasone Dip 80 Mcg/Puff 2 puff INHALATION RT-BID PRN 10/01/21 10/01/21 [Qvar 80 mcg] Cholecalciferol [Vitamin D3 (25 25 mcg PO DAILY 10/01/21 10/01/21 Mcg = 1000 Iu)] Cyanocobalamin (Vitamin B-12) 1,000 mcg PO DAILY 10/01/21 10/01/21 [Vitamin B-12] Multivit with Calcium,Iron,Min 1 tab PO DAILY 10/01/21 10/01/21 [Women's Multivitamin] Previous Rx's Medication Instructions Recorded Apixaban [Eliquis] 5 mg PO BID #60 tab 09/03/18 Metoprolol Succinate (ER) [Toprol 25 mg PO DAILY 60 Days #60 tab 10/03/21 XL] Acyclovir [Zovirax] 800 mg PO TID 7 Days #35 tab 01/25/23 Molnupiravir [Lagevrio (Eua)] 800 mg PO Q12HR 5 Days #40 cap 03/28/23 Allergies Allergy/AdvReac Type Severity Reaction Status Date / Time Sulfa (Sulfonamide Allergy Rash/Hives Verified 09/26/23 17:39 Antibiotics) Review of Systems ROS Statement: Those systems with pertinent positive or pertinent negative responses have been documented in the HPI. Review of Systems: CONST: Denies fever EYES: Denies blurry vision ENT: Denies nasal congestion C/V: Denies Chest pain RESP: Denies shortness of breath GI: Denies abdominal pain : Denies dysuria SKIN: Denies rash. MSK endorses is bilateral knee and hip pain. Endorses lower back pain. NEURO: Denies headache ROS Other: All systems not noted in ROS Statement are negative. Past Medical History Past Medical History: Cancer, Diabetes Mellitus, GERD/Reflux, Hyperlipidemia, Hypertension, Thyroid Disorder Additional Past Medical History / Comment(s): occas. palpitations. Hx. melanoma, overactive thyroid History of Any Multi-Drug Resistant Organisms: None Reported Past Surgical History: Cholecystectomy, Hysterectomy Additional Past Surgical History / Comment(s): L thyroidectomy, skin cancer removed, COLONOSCOPY Past Anesthesia/Blood Transfusion Reactions: No Reported Reaction Additional Past Anesthesia/Blood Transfusion Reaction / Comment(s): no blood transfusion Past Psychological History: No Psychological Hx Reported Smoking Status: Never smoker Past Alcohol Use History: None Reported Past Drug Use History: None Reported - Past Family History Mother Family Medical History: No Reported History General Exam - General Exam Comments Initial Comments: General: Appears in no acute distress. HEAD: Normal with no signs of head trauma. EYES: PERRLA, EOMI, conjunctiva normal, no discharge. ENT: Hearing grossly intact, normal oropharynx. RESPIRATORY: Clear breath sounds bilaterally. No wheezes, rales, or rhonchi. C/V: Regular rate and rhythm. S1 and S2 auscultated, no significant pitting edema, peripheral pulses 2+ and intact throughout ABD: Abd is soft, nontender, nondistended EXT: Normal range of motion, no obvious deformity. Nonspecific tenderness to palpation of bilateral knees.. Patient has no midline lumbar spine, thoracic, cervical spine tenderness to palpation. No step-offs or deformities. Pelvis is stable. SKIN: No rashes or lesions observed on exposed skin. NEURO: Alert and oriented x 4. Course Vital Signs 09/26/23 09/26/23 09/26/23 17:32 20:05 21:30 Temperature 99.2 F Pulse Rate 83 74 75 Respiratory 16 16 9 L Rate Blood Pressure 151/70 167/77 163/72 O2 Sat by Pulse 95 95 95 Oximetry 09/26/23 09/26/23 22:30 23:30 Temperature Pulse Rate 75 75 Respiratory 20 24 Rate Blood Pressure 144/91 133/74 O2 Sat by Pulse 94 L 95 Oximetry Medical Decision Making - Medical Decision Making Was pt. sent in by a medical professional or institution (, PA, CLOTH HANDLER, urgent care, hospital, or shelter...) When possible be specific @ -No Did you speak to anyone other than the patient for history (EMS, parent, family, police, friend...)? What history was obtained from this source @ -No Did you review nursing and triage notes (agree or disagree)? Why? @ -I reviewed and agree with nursing and triage notes Were old charts reviewed (outside hosp., previous admission, EMS record, old EKG, old radiological studies, urgent care reports/EKG's, shelter records)? Report findings @ -No old charts were reviewed Differential Diagnosis (chest pain, altered mental status, abdominal pain women, abdominal pain men, vaginal bleeding, weakness, fever, dyspnea, syncope, headach e, dizziness, GI bleed, back pain, seizure, CVA, palpatations, mental health, musculoskeletal)? @ -Differential Musculoskeletal Muscular strain, contusion, ligament sprain, fracture, arthritis, septic arthritis, bursitis, cellulitis, muscle spasm, nerve compression, DVT, arterial occlusion, herpes zoster, electrolyte abnormality, tumor.... This is not meant to be in all inclusive list EKG interpreted by me (3pts min.). @ -As above X-rays interpreted by me (1pt min.). @ -Chest x-ray, pelvis x-ray, knee x-ray negative for any obvious traumatic injury. No obvious acute process. CT interpreted by me (1pt min.). @ -CT of the lumbar spine negative for any obvious traumatic injury. Degenerat naomi changes present. Adrenal nodule is present on the left and patient was made aware of this. U/S interpreted by me (1pt. min.). @ -None done What testing was considered but not performed or refused? (CT, X-rays, U/S, labs)? Why? @ -None What meds were considered but not given or refused? Why? @ -None Did you discuss the management of the patient with other professionals (professionals i.e. , PA, CLOTH HANDLER, lab, RT, psych nurse, child welfare social worker, loan approver, teacher, mounted police officer, senior case manager)? Give summary @ -No Was smoking cessation discussed for >3mins.? @ -No Was critical care preformed (if so, how long)? @ -No Were there social determinants of health that impacted care today? How? (Home lessness, low income, unemployed, alcoholism, drug addiction, transportation, low edu. Level, literacy, decrease access to med. care, intermediate, rehab)? @ -No Was there de-escalation of care discussed even if they declined (Discuss DNR or withdrawal of care, Hospice)? DNR status @ -No What co-morbidities impacted this encounter? (DM, HTN, Smoking, COPD, CAD, Cancer, CVA, ARF, Chemo, Hep., AIDS, mental health diagnosis, sleep apnea, morbid obesity)? @ -None Was patient admitted / discharged? Hospital course, mention meds given and route, prescriptions, significant lab abnormalities, going to OR and other pertinent info. @ -Patient presents with bilateral hip pain, knee pain. Also just generalized weakness in the lower extremities. Presents for further evaluation. Denies any red flag symptoms. No concern for cauda equina syndrome. Did recommend CT imaging lumbar spine as it does seem radicular in nature but we also obtain x- rays of the pelvis as well as knee. Patient was in agreement this plan. Chest x-ray will be obtained over concern for lower extremity edema. Patient was in a greement basic labs as well. Patient's labs remarkable for mild hypomagnesemia which was replenished. BNP within normal limits. Remainder of labs unremarkable. Chest x-ray and imaging unremarkable other than degenerative changes. Patient does have a incidental adrenal nodule on the left which is made aware to the patient. Recommended further follow-up imaging and workup. Patient was in agreement this plan. I instructed the patient to follow up with their PCP in the next 1-3 days. I explained that the patient should return to the emergency department if they experience any worsening symptoms. Strict return precautions were discussed with the patient. The patient expressed understanding of these instructions. I answered all questions that the patient had. The patient was discharged home in good condition with their prescriptions and follow up information. Undiagnosed new problem with uncertain prognosis? @ -No Drug Therapy requiring intensive monitoring for toxicity (Heparin, Nitro, Insulin, Cardizem)? @ -No Were any procedures done? @ -No Diagnosis/symptom? @ -Arthritis Acute, or Chronic, or Acute on Chronic? @ -Acute Uncomplicated (without systemic symptoms) or Complicated (systemic symptoms)? @ -Uncomplicated Side effects of treatment? @ -No Exacerbation, Progression, or Severe Exacerbation? @ -No Poses a threat to life or bodily function? How? (Chest pain, [place], [place], pneumonia, PE, COPD, DKA, ARF, appy, cholecystitis, CVA, Diverticulitis, Homicidal, Suicidal, threat to staff... and all critical care pts) @ -No - Lab Data Result diagrams: 09/26/23 19:01 09/26/23 19: Lab Results 09/26/23 09/26/23 09/26/23 Range/Units 19:01 19: 19:01 WBC 12.8 H (3.8-10.6) k/uL RBC 4.88 (3.80-5.40) m/uL Hgb 12.7 (11.4-16.0) gm/dL Hct 39.3 (34.0-46.0) % MCV 80.4 (80.0-100.0) fL MCH 25.9 (25.0-35.0) pg MCHC 32.3 (31.0-37.0) g/dL RDW 15.6 H (11.5-15.5) % Plt Count 211 (150-450) k/uL MPV 8.3 Neutrophils % 65 % Lymphocytes % 23 % Monocytes % 4 % Eosinophils % 6 % Basophils % 1 % Neutrophils # 8.3 H (1.3-7.7) k/uL Lymphocytes # 2.9 (1.0-4.8) k/uL Monocytes # 0.5 (0-1.0) k/uL Eosinophils # 0.7 (0-0.7) k/uL Basophils # 0.1 (0-0.2) k/uL PT 11.8 (10.0-12.5) sec INR 1.1 (<1.2) APTT 30.2 H (22.0-30.0) sec Sodium (137-145) mmol/L Potassium (3.5-5.1) mmol/L Chloride (98-107) mmol/L Carbon Dioxide (22-30) mmol/L Anion Gap mmol/L BUN (7-17) mg/dL Creatinine (0.52-1.04) mg/dL Est GFR (CKD-EPI)AfAm (>60 ml/min/1.73 sqM) Est GFR (CKD-EPI)NonAf (>60 ml/min/1.73 sqM) Glucose (74-99) mg/dL Calcium (8.4-10.2) mg/dL Magnesium (1.6-2.3) mg/dL Total Bilirubin (0.2-1.3) mg/dL AST (14-36) U/L ALT (4-34) U/L Alkaline Phosphatase (38-126) U/L NT-Pro-B Natriuret Pep pg/mL Total Protein (6.3-8.2) g/dL Albumin (3.5-5.0) g/dL Urine Color Colorless Urine Appearance Clear (Clear) Urine pH 5.0 (5.0-8.0) Ur Specific [place] 1.010 (1.001-1.035) Urine Protein Negative (Negative) Urine Glucose (UA) Negative (Negative) Urine Ketones Negative (Negative) Urine Blood Negative (Negative) Urine Nitrite Negative (Negative) Urine Bilirubin Negative (Negative) Urine Urobilinogen <2.0 (<2.0) mg/dL Ur Leukocyte Esterase Negative (Negative) 09/26/23 Range/Units 19:01 WBC (3.8-10.6) k/uL RBC (3.80-5.40) m/uL Hgb (11.4-16.0) gm/dL Hct (34.0-46.0) % MCV (80.0-100.0) fL MCH (25.0-35.0) pg MCHC (31.0-37.0) g/dL RDW (11.5-15.5) % Plt Count (150-450) k/uL MPV Neutrophils % % Lymphocytes % % Monocytes % % Eosinophils % % Basophils % % Neutrophils # (1.3-7.7) k/uL Lymphocytes # (1.0-4.8) k/uL Monocytes # (0-1.0) k/uL Eosinophils # (0-0.7) k/uL Basophils # (0-0.2) k/uL PT (10.0-12.5) sec INR (<1.2) APTT (22.0-30.0) sec Sodium 139 (137-145) mmol/L Potassium 4.0 (3.5-5.1) mmol/L Chloride 106 (98-107) mmol/L Carbon Dioxide 21 L (22-30) mmol/L Anion Gap 12 mmol/L BUN 24 H (7-17) mg/dL Creatinine 0.63 (0.52-1.04) mg/dL Est GFR (CKD-EPI)AfAm >90 (>60 ml/min/1.73 sqM) Est GFR (CKD-EPI)NonAf 86 (>60 ml/min/1.73 sqM) Glucose 97 (74-99) mg/dL Calcium 10.0 (8.4-10.2) mg/dL Magnesium 1.3 L (1.6-2.3) mg/dL Total Bilirubin 0.7 (0.2-1.3) mg/dL AST 68 H (14-36) U/L ALT 74 H (4-34) U/L Alkaline Phosphatase 102 (38-126) U/L NT-Pro-B Natriuret Pep 285 pg/mL Total Protein 7.2 (6.3-8.2) g/dL Albumin 4.4 (3.5-5.0) g/dL Urine Color Urine Appearance (Clear) Urine pH (5.0-8.0) Ur Specific [place] (1.001-1.035) Urine Protein (Negative) Urine Glucose (UA) (Negative) Urine Ketones (Negative) Urine Blood (Negative) Urine Nitrite (Negative) Urine Bilirubin (Negative) Urine Urobilinogen (<2.0) mg/dL Ur Leukocyte Esterase (Negative) - EKG Data -: EKG Interpreted by Me EKG Comments: 12-lead Electrocardiogram Interpretation Note EKG was reviewed and interpreted by myself. 12-lead ECG performed at 1829 is interpreted by me as revealing atrial fibrillation at a rate of 71 beats per minute. [place] is normal. QRS duration is 152 ms, QTc is 415 ms.. Right bundle branch block morphology. there were no obvious acute ST or T wave abnormalities to suggest myocardial ischemia or injury. R wave progression across the precordium was satisfactory. By my interpretation this EKG is non-diagnostic for acute ischemia. Disposition Clinical Impression: Arthritis, Dependent edema Disposition: HOME SELF-CARE Condition: Good Instructions (If sedation given, give patient instructions): Osteoarthritis (ED) Is patient prescribed a controlled substance at d/c from ED?: No Referrals: Melonie Fisher MD [Primary Care Provider] - 1-2 days Time of Disposition: 23:37
[2023-09-26] MEDS: KETOROLAC 15 MG/ML 1 ML VIAL IVP STA (20:07)
[2023-09-26 20:16] LABS: Appearance,Urine Clear (Clear); Basophils # (A) 0.1 k/uL (0-0.2); Basophils % (A) 1 %; Bilirubin,Urine Negative (Negative); Blood,Urine Negative (Negative); Color,Urine Colorless; Eosinophils # (A) 0.7 k/uL (0-0.7); Eosinophils % (A) 6 %; Glucose,Urine (UA) Negative (Negative); HCT 39.3 % (34.0-46.0); HGB 12.7 gm/dL (11.4-16.0); Ketones,Urine Negative (Negative); Leukocyte Esterase,Urine Negative (Negative); Lymphocytes # (A) 2.9 k/uL (1.0-4.8); Lymphocytes % (A) 23 %; MCH 25.9 pg (25.0-35.0); MCHC 32.3 g/dL (31.0-37.0); MCV 80.4 fL (80.0-100.0); Mean Platelet Volume 8.3; Monocytes # (A) 0.5 k/uL (0-1.0); Monocytes % (A) 4 %; Neutrophils # (A) 8.3 k/uL (1.3-7.7); Neutrophils % (A) 65 %; Nitrite,Urine Negative (Negative); Platelet Count 211 k/uL (150-450); Protein,Urine Negative (Negative); RBC 4.88 m/uL (3.80-5.40); RDW 15.6 % (11.5-15.5); Urobilinogen,Urine <2.0 mg/dL (<2.0); WBC 12.8 k/uL (3.8-10.6)
[2023-09-26 20:27] LABS: INR 1.1 (<1.2); Partial Thromboplastin Time 30.2 sec (22.0-30.0); Prothrombin Time 11.8 sec (10.0-12.5)
[2023-09-26 20:53] LABS: ALT 74 U/L (4-34); AST 68 U/L (14-36); African American GFR (CKD) >90 (>60 ml/min/1.73 sqM); Albumin 4.4 g/dL (3.5-5.0); Alkaline Phosphatase 102 U/L (38-126); Anion Gap 12 mmol/L; Blood Urea Nitrogen 24 mg/dL (7-17); Carbon Dioxide 21 mmol/L (22-30); Chloride 106 mmol/L (98-107); Glucose 97 mg/dL (74-99); Magnesium 1.3 mg/dL (1.6-2.3); Non-African American GFR(CKD) 86 (>60 ml/min/1.73 sqM); Sodium 139 mmol/L (137-145); Total Bilirubin 0.7 mg/dL (0.2-1.3); Total Protein 7.2 g/dL (6.3-8.2)
[2023-09-26 21:00] LABS: NT-Pro-B-Type Natriuretic Pept 285 pg/mL
--- NOTE | 2023-09-26 21:17 | CT ---
EXAMINATION TYPE: CT lumbar spine wo con CT DLP: 2162.4 mGycm, Automated exposure control for dose reduction was used. DATE OF EXAM: 09/26/2023 7:41 PM COMPARISON: None.. CLINICAL INDICATION:Female, 78 years old with history of pain; PHH, pain, numbness in right leg. TECHNIQUE: CT of the lumbar spine was performed without contrast. Multiplanar soft tissue and bone windows were obtained and reviewed. . Contrast used: None FINDINGS: There are 5 lumbar-type vertebral bodies. No evidence of vertebral body height loss or fracture. No s ignificant listhesis. Mild/moderate multilevel degenerative changes. T12-L1, L1-L2, no significant spinal canal or neuroforaminal stenosis. L2-L3, disc osteophyte complex and mild to moderate facet arthrosis results in mild/moderate spinal c anal and neural foraminal stenosis. L3-L4, mild degenerative disc disease and moderate facet arthrosis results in [id number] bilate ral neural foraminal stenosis and spinal canal stenosis. L4-L5, posterior disc osteophyte complex, mo derate to severe facet arthrosis and ligamentum flavum hypertrophy results in moderate circumferentia l spinal canal stenosis and bilateral neural foraminal stenosis. L5-S1, mild disc osteophyte complex and mild bilateral facet arthrosis. Mild spinal canal and foramin al stenosis. Visualized soft tissues show a 2.1 cm right adrenal nodule with attenuation 14.5 Hounsfield units, pr obably a benign adenoma. Mild left-sided perinephric stranding without hydronephrosis visualized. Mil d to moderate calcification of the abdominal aorta and branches. No evidence of AAA. IMPRESSION: 1. No evidence of acute lumbar fracture or traumatic malalignment. 2. [id number] multilevel degenerative changes, as detailed level by level above. 3. Nonspecific 2.1 cm right adrenal nodule.
[2023-09-26] MEDS: MAGNESIUM SULFATE-D5W PMX 1 GM in DEXTROSE/WATER 1 100ML.BAG IVPB ONE (21:59)
--- NOTE | 2023-09-26 22:43 | XR ---
EXAMINATION TYPE: XR chest 2V DATE OF EXAM: 09/26/2023 7:49 PM CLINICAL INDICATION:Female, 78 years old with history of Weakness; [facility] COMPARISON: 07/28/2023 TECHNIQUE: XR chest 2V. Frontal and lateral views of the chest.. FINDINGS: Lines/Tubes/Devices: EKG leads overlie the chest. No indwelling lines are seen. Heart/mediastinum: Heart size is stable, upper normal. Mediastinum appears unchanged. Mildly tortuo us aorta. Pulmonary vascularity: Not increased, Lungs/Pleura: Hyperinflation with interstitial coarsening suggesting COPD again noted. No definite fo frank airspace disease, pleural effusion, or pneumothorax. No clear evidence of persistent nodularity a t the right lung base, nevertheless outpatient CT chest may be obtained for further assessment as cli nically warranted. Musculoskeletal: No acute osseous abnormality demonstrated in the limits of the exam. Degenerative c hanges of the spine and shoulders. Other findings: None. IMPRESSION: No acute cardiopulmonary abnormality.
[2023-09-26 23:56] VITALS: BP 133/74; PULSE 75; RESP 24
--- NOTE | 2023-09-27 00:03 | XR ---
EXAMINATION TYPE: XR pelvis AP view DATE OF EXAM: 09/26/2023 7:49 PM CLINICAL INDICATION:Female, 78 years old with history of pain; PHH COMPARISON: None TECHNIQUE: The pelvis was examined in a single projection. FINDINGS: There are mild diffuse degenerative changes including the lower lumbar spine, SI joints, hips. There is no convincing evidence of fracture or dislocation. There is streaky opacity over the bilateral hip s which are judged to represent overlying soft tissues. There is no acute soft tissue abnormality. N o abnormal calcifications are present. IMPRESSION: No acute fracture or dislocation identified, on this single view of the pelvis.
--- NOTE | 2023-09-27 00:08 | XR ---
EXAMINATION TYPE: XR knee limited bilateral DATE OF EXAM: 09/26/2023 7:49 PM CLINICAL INDICATION:Female, 78 years old with history of pain; PHH COMPARISON: None. TECHNIQUE: XR knee limited bilateral; examined in Frontal, lateral and oblique projections. FINDINGS: Osseous mineralization appears appropriate. No evidence of destructive lesion or aggressive periostit is. No acute fracture or dislocation. There is tricompartmental osteoarthropathy bilaterally, involvi ng the medial compartments to the greatest degree. Roughly symmetric involvement on the right as comp ared to the left. Mild soft tissue fullness on the right suggests possible small suprapatellar joint effusion. Left is unremarkable. There are no radiopaque foreign body seen. IMPRESSION: 1. Moderate tricompartmental osteoarthropathy, greatest in the medial compartments. 2. No acute fracture or dislocation. 3. Possible small right suprapatellar joint effusion.
== END 2023-09-26 23:48 | disposition home or self-care (01) ==
LOC: EC 17:28 → SUPCPDRO 17:28 → EC 23:48
DX: M19.90 Unspecified osteoarthritis, unspecified site (principal); R60.0 Localized edema; Z88.2 Allergy status to sulfonamides; Z90.49 Acquired absence of other specified parts of digestive tract
CPT/HCPCS: 36415; 93005; 83880; 80053; 83735; 85025; 85610; 85730; 81003; 73560; 72170; 71046; 72131; 99285; 96365; 96375; J3475; J1885

== ENCOUNTER → 2024-05-03 | Outpatient (CLI) | payer MEDICARE ==
--- NOTE | 2024-05-04 08:12 | XR ---
EXAMINATION TYPE: XR Hip LT and AP Pelvis DATE OF EXAM: 05/03/2024 3:59 PM COMPARISON: None. CLINICAL INDICATION: Female, 78 years old with history of M25.552 PAIN IN LEFT HIP, pain TECHNIQUE: XR Hip LT and AP Pelvis views were obtained. AP Pelvis also obtained. FINDINGS: There is no acute fracture/dislocation evident. The joint space appears moderately narro wed. The overlying soft tissue appears unremarkable. IMPRESSION: No acute fracture or dislocation. [facility], , 05/04/2024 8:10 AM
== END | disposition home or self-care (01) ==
LOC: RADXRMAIN 15:31
PROVIDERS: ATTEND Nurse Practitioner Family
DX: M25.552 Pain in left hip (principal)
CPT/HCPCS: 73502

== ENCOUNTER 2024-07-20 01:31 | Observation (INO) | payer MEDICARE ==
--- NOTE | 2024-07-20 01:39 | ED ---
Chest Pain HPI - General Chief Complaint: Chest Pain Stated Complaint: Chest Pain Time Seen by Provider: 07/20/24 01:37 Source: patient, EMS, RN notes reviewed, old records reviewed Mode of arrival: EMS Limitations: no limitations - History of Present Illness Initial Comments: This is a 79-year-old female to the ER for evaluation of chest pain substernal chest pain that woke him from sleep sharp pain. Patient has history of cholecystectomy, no abdominal pain mild nausea no vomiting no fevers no shortness of breath patient does have history of blood pressure cholesterol and diabetes no prior history of heart disease patient does have history of atrial fibrillation MD Complaint: chest pain -: hour(s) Onset: awoke with symptoms Pain Location: substernal Pain Radiation: none Severity: moderate Severity scale (1-10): 4 Quality: sharp Consistency: constant Improves With: nothing Worsens With: nothing Treatments Prior to Arrival: none - Related Data Home Medications Medication Instructions Recorded Confirmed metFORMIN HCL [Glucophage] 500 mg PO BID 01/12/15 10/01/21 Atorvastatin Calcium [Lipitor] 40 mg PO HS 02/27/21 10/01/21 Valsartan [Diovan] 320 mg PO DAILY 02/27/21 10/01/21 Beclomethasone Dip 80 Mcg/Puff 2 puff INHALATION RT-BID PRN 10/01/21 10/01/21 [Qvar 80 mcg] Cholecalciferol [Vitamin D3 (25 25 mcg PO DAILY 10/01/21 10/01/21 Mcg = 1000 Iu)] Cyanocobalamin (Vitamin B-12) 1,000 mcg PO DAILY 10/01/21 10/01/21 [Vitamin B-12] Multivit with Calcium,Iron,Min 1 tab PO DAILY 10/01/21 10/01/21 [Women's Multivitamin] Previous Rx's Medication Instructions Recorded Apixaban [Eliquis] 5 mg PO BID #60 tab 09/03/18 Metoprolol Succinate (ER) [Toprol 25 mg PO DAILY 60 Days #60 tab 10/03/21 XL] Acyclovir [Zovirax] 800 mg PO TID 7 Days #35 tab 01/25/23 Molnupiravir [Lagevrio (Eua)] 800 mg PO Q12HR 5 Days #40 cap 03/28/23 Allergies Allergy/AdvReac Type Severity Reaction Status Date / Time Sulfa (Sulfonamide Allergy Rash/Hives Verified 07/20/24 01:36 Antibiotics) Review of Systems ROS Statement: Those systems with pertinent positive or pertinent negative responses have been documented in the HPI. ROS Other: All systems not noted in ROS Statement are negative. EKG Findings - EKG Comments: EKG Findings:: EKG is uncertain rate 87 QRS fluids 21 QTc 398 - EKG Results: EKG: interpreted by RENARD Past Medical History Past Medical History: Atrial Fibrillation, Cancer, Diabetes Mellitus, GERD/Reflux, Hyperlipidemia, Hypertension, Thyroid Disorder Additional Past Medical History / Comment(s): occas. palpitations. Hx. melanoma, overactive thyroid History of Any Multi-Drug Resistant Organisms: None Reported Past Surgical History: Cholecystectomy, Hysterectomy Additional Past Surgical History / Comment(s): L thyroidectomy, skin cancer removed, COLONOSCOPY Past Anesthesia/Blood Transfusion Reactions: No Reported Reaction Additional Past Anesthesia/Blood Transfusion Reaction / Comment(s): no blood transfusion Past Psychological History: No Psychological Hx Reported Smoking Status: Never smoker Past Alcohol Use History: None Reported Past Drug Use History: None Reported - Past Family History Mother Family Medical History: No Reported History General Exam Limitations: no limitations General appearance: alert, in no apparent distress Head exam: Present: atraumatic, normocephalic, normal inspection Eye exam: Present: normal appearance, PERRL, EOMI. Absent: scleral icterus, conjunctival injection, periorbital swelling ENT exam: Present: normal exam, mucous membranes moist Neck exam: Present: normal inspection. Absent: tenderness, meningismus, lymphadenopathy Respiratory exam: Present: normal lung sounds bilaterally. Absent: respiratory distress, wheezes, rales, rhonchi, stridor Cardiovascular Exam: Present: regular rate, normal rhythm, normal heart sounds. Absent: systolic murmur, diastolic murmur, rubs, gallop, clicks GI/Abdominal exam: Present: soft, normal bowel sounds. Absent: distended, tenderness, guarding, rebound, rigid Extremities exam: Present: normal inspection, full ROM, normal capillary refill. Absent: tenderness, pedal edema, joint swelling, calf tenderness Back exam: Present: normal inspection Neurological exam: Present: alert, oriented X3, CN II-XII intact Psychiatric exam: Present: normal affect, normal mood Skin exam: Present: warm, dry, intact, normal color. Absent: rash Course Vital Signs 03/04/25 03/04/25 01:32 03:12 Temperature 98.1 F Pulse Rate 72 69 Respiratory 18 16 Rate Blood Pressure 148/77 140/68 O2 Sat by Pulse 99 100 Oximetry - Reevaluation(s) Reevaluation #1: 07/20/24 04:03 Medical records reviewed Medical history is reviewed no prior ER visits for chest pain No prior inpatient hospitalizations for pancreatitis Reevaluation #2: 07/20/24 04:03 Patient's chest pain is improved Chest pain then returns the patient given second dose of pain medications Reevaluation #3: 07/20/24 04:03 Patient informed of results questions answered Reevaluation #4: Was pt. sent in by a medical professional or institution (ELAINE Campos, LEGAL COUNSEL, urgent care, hospital, or long term...) When possible be specific @ -no Did you speak to anyone other than the patient for history (EMS, parent, family, police, friend...)? What history was obtained from this source @ -no Did you review nursing and triage notes (agree or disagree)? Why? @ -agree Are old charts reviewed (outside hosp., previous admission, EMS record, old EKG, old radiological studies, urgent care reports/EKG's, long term records)? Report findings @ -yes Differential Diagnosis (chest pain, altered mental status, abdominal pain women, abdominal pain men, vaginal bleeding, weakness, fever, dyspnea, syncope, headache, dizziness, GI bleed, back pain, seizure, CVA, palpatations, mental health, musculoskeletal)? @ -prior EKG interpreted by me (3pts min.). @ -yes X-rays interpreted by me (1pt min.). @ -yes negative for acute disease CT interpreted by me (1pt min.). @ -no U/S interpreted by me (1pt. min.). @ -no What testing was considered but not performed or refused? (CT, X-rays, U/S, labs)? Why? @ -none What meds were considered but not given or refused? Why? @ -none Did you discuss the management of the patient with other professionals (professionals i.e. ELAINE Campos, LEGAL COUNSEL, lab, RT, psych nurse, psychotherapist social worker, b2b appointment setter, teacher, event security officer, correctional case records supervisor)? Give summary @ -no Was smoking cessation discussed for >3mins.? @ -no Was critical care preformed (if so, how long)? @ -no Were there social determinants of health that impacted care today? How? (Homelessness, low income, unemployed, alcoholism, drug addiction, transportation, low edu. Level, literacy, decrease access to med. care, shelter, rehab)? @ -none Was there de-escalation of care discussed even if they declined (Discuss DNR or withdrawal of care, Hospice)? DNR status @ -no What co-morbidities impacted this encounter? (DM, HTN, Smoking, COPD, CAD, Cancer, CVA, ARF, Chemo, Hep., AIDS, mental health diagnosis, sleep apnea, morbid obesity)? @ -none Was patient admitted / discharged? Hospital course, mention meds given and route, prescriptions, significant lab abnormalities, going to OR and other pertinent info. @ - Undiagnosed new problem with uncertain prognosis? @ -no Drug Therapy requiring intensive monitoring for toxicity (Heparin, Nitro, Insulin, Cardizem)? @ -no Were any procedures done? @ -no Diagnosis/symptom? @ - Acute, or Chronic, or Acute on Chronic? @ -Acute Uncomplicated (without systemic symptoms) or Complicated (systemic symptoms)? @ -Complicated Side effects of treatment? @ -no Exacerbation, Progression, or Severe Exacerbation? @ -exacerbation Poses a threat to life or bodily function? How? (Chest pain, [place], [place], pneumonia, PE, COPD, DKA, ARF, appy, cholecystitis, CVA, Diverticulitis, Homicidal, Suicidal, threat to staff... and all critical care pts) @ -yes Reevaluation #5: Differential Chest Pain: Stable Angina, Unstable Angina, STEMI, NSTEMI Aortic Dissection, Pneumothorax, Musculoskeletal, Esophageal Spasm GERD, Cholecystitis, Pancreatitis, Zoster, this is not meant to be an all-inclusive list. - Consultations Consultation #1: Spoke with [facility] who agreed to admit this patient Chest Pain MDM - MDM 79 female will be admitted for chest pain with acute pancreatitis. Disposition Clinical Impression: Chest pain, Atrial fibrillation with rapid ventricular response, Pancreatitis Disposition: ADMITTED IP TO THIS HOSP Condition: Fair Is patient prescribed a controlled substance at d/c from ED?: No Referrals: Lashawn Peterson MD [Primary Care Provider] - 1-2 days Time of Disposition: :00
[2024-07-20] MEDS: MORPHINE SULFATE 4 MG/ML SYRINGE IV STA (02:04)
[2024-07-20] MEDS: SODIUM CHLORIDE 0.9% 1,000 ML IV STA (02:05)
[2024-07-20 02:23] LABS: Basophils % (A) 0 %; Eosinophils # (A) 0.3 k/uL (0-0.7); Eosinophils % (A) 3 %; HCT 40.4 % (34.0-46.0); HGB 12.6 gm/dL (11.4-16.0); Lymphocytes # (A) 2.7 k/uL (1.0-4.8); Lymphocytes % (A) 32 %; MCH 25.1 pg (25.0-35.0); MCHC 31.3 g/dL (31.0-37.0); MCV 80.3 fL (80.0-100.0); Mean Platelet Volume 8.8; Monocytes # (A) 0.6 k/uL (0-1.0); Monocytes % (A) 7 %; Neutrophils # (A) 4.7 k/uL (1.3-7.7); Neutrophils % (A) 56 %; Platelet Count 213 k/uL (150-450); RBC 5.03 m/uL (3.80-5.40); RDW 15.8 % (11.5-15.5); WBC 8.5 k/uL (3.8-10.6)
[2024-07-20 02:27] LABS: ALT 52 U/L (4-34); AST 75 U/L (14-36); African American GFR (CKD) 74 (>60 ml/min/1.73 sqM); Albumin 4.5 g/dL (3.5-5.0); Alkaline Phosphatase 88 U/L (38-126); Anion Gap 17 mmol/L; Blood Urea Nitrogen 38 mg/dL (7-17); Calcium 10.1 mg/dL (8.4-10.2); Carbon Dioxide 14 mmol/L (22-30); Chloride 103 mmol/L (98-107); Glucose 103 mg/dL (74-99); Lipase 1018 U/L (23-300); Magnesium 1.6 mg/dL (1.6-2.3); Non-African American GFR(CKD) 65 (>60 ml/min/1.73 sqM); Sodium 134 mmol/L (137-145); Total Bilirubin 0.7 mg/dL (0.2-1.3); Total Protein 7.5 g/dL (6.3-8.2)
[2024-07-20 02:35] LABS: NT-Pro-B-Type Natriuretic Pept 47 pg/mL
[2024-07-20 02:52] LABS: Potassium 4.7 mmol/L (3.5-5.1)
[2024-07-20 02:55] LABS: Partial Thromboplastin Time 26.1 sec (22.0-30.0); Prothrombin Time 11.5 sec (10.0-12.5)
[2024-07-20] MEDS ORDERED: NALOXONE 0.4 MG/ML 1 ML VIAL IV PRN (04:04)
[2024-07-20] MEDS ORDERED: MORPHINE SULFATE 4 MG/ML SYRINGE IV PRN (04:04)
[2024-07-20] MEDS ORDERED: ONDANSETRON 4 MG/2 ML VIAL IVP PRN (04:04)
--- NOTE | 2024-07-20 04:17 | XR ---
EXAM: XR Chest, 1 View CLINICAL HISTORY: Pt arrives to ER via EMS with complaints of substernal chest pain. TECHNIQUE: Frontal view of the chest. COMPARISON: 09/26/23 FINDINGS: Lungs: Small amount of airspace opacities over right middle lung zone, new. Pleural space: Unremarkable. Mediastinum: Unchanged. Bones/joints: No acute findings. IMPRESSION: Small amount of atelectasis and/or pneumonia versus aspiration of the right middle lung zone
[2024-07-20] MEDS: SODIUM CHLORIDE 0.9% 1,000 ML IV SCH (05:13)
--- NOTE | 2024-07-20 09:30 | CT ---
EXAMINATION TYPE: CT abdomen pelvis w con DATE OF EXAM: 07/20/2024 9:03 AM COMPARISON: CT from 09/26/2023. CLINICAL INDICATION: Female, 79 years old with history of pancreatitis; pancreatitis TECHNIQUE: Axial CT abdomen pelvis w con;Sagittal and coronal reformats were created on a separate w orkstation. Contrast used:100 mL of Isovue 300 with IV Contrast, (none if empty) Oral contrast used: without Oral Contrast (none if empty) CT DLP: 2391 mGycm, Automated exposure control for dose reduction was used. FINDINGS: LOWER CHEST: Unremarkable ABDOMEN LIVER: Unremarkable GALLBLADDER AND BILE DUCTS: The gallbladder appears surgically absent. Mild extra hepatic and central intrahepatic biliary dilation. PANCREAS: No significant fat stranding. No ductal dilation. No evidence for mass. No peripancreatic f luid collections. The pancreatic parenchyma enhances uniformly. SPLEEN: Unremarkable. ADRENAL GLANDS: Right adrenal nodule measuring up to 24 mm KIDNEYS AND URETERS: No evidence of hydronephrosis or renal calculus. The ureters are unremarkable. PELVIS BLADDER: No evidence for wall thickening or mass given limitations of exam. REPRODUCTIVE: The uterus is surgically absent. ABDOMEN & PELVIS STOMACH AND BOWEL: No evidence of bowel obstruction. The appendix is normal PERITONEUM/RETROPERITONEUM: No evidence of pneumoperitoneum or free fluid. VASCULATURE: No evidence of aortic aneurysm. MUSCULOSKELETAL: No acute osseous abnormalities. Mild disc degeneration changes are present throughou t the thoracolumbar spine. Severe degeneration changes of the hips with joint space tearing osteophyt e formation subchondral cyst cystic change with the left hip. LYMPH NODES: No gross evidence for lymphadenopathy. SOFT TISSUE/ABDOMINAL WALL: Fat-containing umbilical hernia. IMPRESSION: 1. No evidence for acute abdominal process. 2. The pancreas is within normal limits. No evidence for ductal dilation or pancreatic mass. 3. Cystic duct remnant versus atrophic gallbladder. Mild extrahepatic and central intrahepatic bilia ry dilation. 4. Right adrenal nodule which is indeterminate. This is stable back to 09/26/2023 Consider MRI for fu rther evaluation. [facility], , 07/20/2024 9:27 AM
--- NOTE | 2024-07-20 11:42 | P.HPIM ---
History of Present Illness Patient is an 79-year-old female came in with substernal chest pain which started last night. Patient denied any diaphoresis nausea lightheadedness with the pain denied any shortness of breath associate with the pain pain pain completely resolved at this time patient is EKG which showed some nonspecific T wave inversions in the anterior leads which are old and not new. Troponin is negative chest x-ray did not show any significant abnormalities CT of the head did not show any significant abnormality except for an incidental finding of nodule on the adrenal gland. No evidence of pancreatitis patient lipase is elevated to 1000 although patient does not have any other symptoms of pancreatitis patient occasionally gets right upper quadrant abdominal pain patient had a cholecystectomy in the past patient liver enzymes are slightly elevated patient does take too much Tylenol at home. REVIEW OF SYSTEMS: All other systems are negative except those mentioned in the HPI PHYSICAL EXAMINATION: GENERAL: The patient is alert and oriented x3, not in any acute distress. Well developed, well nourished. HEENT: Pupils are round and equally reacting to light. EOMI. No scleral icterus. No conjunctival pallor. Normocephalic, atraumatic. No pharyngeal erythema. No thyromegaly. CARDIOVASCULAR: S1 and S2 present. No murmurs, rubs, or gallops. PULMONARY: Chest is clear to auscultation, no wheezing or crackles. ABDOMEN: Soft, nontender, nondistended, normoactive bowel sounds. No palpable organomegaly. MUSCULOSKELETAL: No joint swelling or deformity. EXTREMITIES: No cyanosis, clubbing, or pedal edema. NEUROLOGICAL: Gross neurological examination did not reveal any focal deficits. SKIN: No rashes. Assessment and plan -Chest pain will rule out acute coronary syndromes cardiology will evaluate the patient if cleared by cardiology patient will be discharged today -Elevation elevated lipase my suspicion is low for pancreatitis as patient does not have any symptoms and CAT scan is not consistent with pancreatitis patient can be started on diet if cleared by cardiology and no further intervention or stress test is being done. Will hold off on beta-oswaldo for today if she is going for stress test today -Hypertension -Mild hyponatremia secondary to type II on hydrochlorothiazide -Incidental finding of nodule in the adrenal gland patient will benefit from adrenal phase CT scan or an MRI as an outpatient -Paroxysmal atrial fibrillation presently sinus rhythm coagulation with Eliquis -Hyperlipidemia -Hypertension -Hypothyroidism For above-mentioned text chronic medical problems patient was resumed on appropriate home medications Past Medical History Past Medical History: Atrial Fibrillation, Cancer, Diabetes Mellitus, GERD/Reflux, Hyperlipidemia, Hypertension, Thyroid Disorder Additional Past Medical History / Comment(s): occas. palpitations. Hx. melanoma, overactive thyroid History of Any Multi-Drug Resistant Organisms: None Reported Past Surgical History: Cholecystectomy, Hysterectomy Additional Past Surgical History / Comment(s): L thyroidectomy, skin cancer removed, COLONOSCOPY Past Anesthesia/Blood Transfusion Reactions: No Reported Reaction Additional Past Anesthesia/Blood Transfusion Reaction / Comment(s): no blood transfusion Past Psychological History: No Psychological Hx Reported Smoking Status: Never smoker Past Alcohol Use History: None Reported Past Drug Use History: None Reported - Past Family History Mother Family Medical History: No Reported History Medications and Allergies Home Medications Medication Instructions Recorded Confirmed Type metFORMIN HCL [Glucophage] 500 mg PO BID 01/12/15 07/20/24 History Apixaban [Eliquis] 5 mg PO BID #60 tab 09/03/18 07/20/24 Rx Atorvastatin Calcium [Lipitor] 40 mg PO HS 02/27/21 07/20/24 History Valsartan [Diovan] 320 mg PO DAILY 02/27/21 07/20/24 History Acetaminophen [Tylenol Arthritis] 1,300 mg PO HS 07/20/24 07/20/24 History Acetaminophen-Codeine 300-30mg 1 tab PO HS 07/20/24 07/20/24 History [Tylenol w/codeine #3] Acetaminophen/Diphenhydramine 1 tab PO HS 07/20/24 07/20/24 History [Tylenol PM 500-25mg] Ferrous Sulfate [Slow Release Iron] 280 mg PO DAILY 07/20/24 07/20/24 History Magnesium Chloride [Mag64] 128 mg PO DAILY 07/20/24 07/20/24 History Triamterene/Hydrochlorothiazid 1 tab PO DAILY 07/20/24 07/20/24 History [Triamterene-Hctz 37.5-25 mg Tb] carvediloL [Coreg] 6.25 mg PO BID 07/20/24 07/20/24 History traMADol HCL 50 mg PO HS 07/20/24 07/20/24 History Allergies Allergy/AdvReac Type Severity Reaction Status Date / Time Sulfa (Sulfonamide Allergy Rash/Hives Verified 07/20/24 07:08 Antibiotics) Physical Exam Vitals: Vital Signs Temp Pulse Resp BP Pulse Ox 07/20/24 08:33 97.3 F L 63 16 122/64 97 07/20/24 06:40 75 18 118/83 97 07/20/24 03:12 69 16 140/68 100 07/20/24 01:32 98.1 F 72 18 148/77 99 Intake and Output 07/19/24 07/20/24 07/20/24 22:59 06:59 14:59 Other: Weight 130.635 kg Results CBC & Chem 7: 07/20/24 01:37 07/20/24 01:37 Labs: Abnormal Lab Results - Last 24 Hours (Table) 07/20/24 07/20/24 Range/Units 01:37 01:37 RDW 15.8 H (11.5-15.5) % Sodium 134 L (137-145) mmol/L Carbon Dioxide 14 L (22-30) mmol/L BUN 38 H (7-17) mg/dL Glucose 103 H (74-99) mg/dL AST 75 H (14-36) U/L ALT 52 H (4-34) U/L Lipase 1018 H (23-300) U/L
--- NOTE | 2024-07-20 11:43 | P.DS ---
Providers Date of admission: 07/20/24 04:05 Attending physician: Bronwyn Martinez Consults: 07/20/24 11:33 Consult Physician Routine Consulting Provider: Prasad Herron Consult Reason/Comments: chest pain Do you want consulting provider notified?: Yes Primary care physician: Lashawn Peterson MD Hospital Course: Patient is an 79-year-old female came in with substernal chest pain which started last night. Patient denied any diaphoresis nausea lightheadedness with the pain denied any shortness of breath associate with the pain pain pain completely resolved at this time patient is EKG which showed some nonspecific T wave inversions in the anterior leads which are old and not new. Troponin is negative chest x-ray did not show any significant abnormalities CT of the head did not show any significant abnormality except for an incidental finding of nodule on the adrenal gland. No evidence of pancreatitis patient lipase is elevated to 1000 although patient does not have any other symptoms of pancreatitis patient occasionally gets right upper quadrant abdominal pain patient had a cholecystectomy in the past patient liver enzymes are slightly elevated patient does take too much Tylenol at home. REVIEW OF SYSTEMS: All other systems are negative except those mentioned in the HPI PHYSICAL EXAMINATION: GENERAL: The patient is alert and oriented x3, not in any acute distress. Well developed, well nourished. HEENT: Pupils are round and equally reacting to light. EOMI. No scleral icterus. No conjunctival pallor. Normocephalic, atraumatic. No pharyngeal erythema. No thyromegaly. CARDIOVASCULAR: S1 and S2 present. No murmurs, rubs, or gallops. PULMONARY: Chest is clear to auscultation, no wheezing or crackles. ABDOMEN: Soft, nontender, nondistended, normoactive bowel sounds. No palpable organomegaly. MUSCULOSKELETAL: No joint swelling or deformity. EXTREMITIES: No cyanosis, clubbing, or pedal edema. NEUROLOGICAL: Gross neurological examination did not reveal any focal deficits. SKIN: No rashes. Assessment and plan -Chest pain will rule out acute coronary syndromes cardiology will evaluate the patient if cleared by cardiology patient will be discharged today -Elevation elevated lipase my suspicion is low for pancreatitis as patient does not have any symptoms and CAT scan is not consistent with pancreatitis patient can be started on diet if cleared by cardiology and no further intervention or stress test is being done. Will hold off on beta-oswaldo for today if she is going for stress test today -Hypertension -Mild hyponatremia secondary to type II on hydrochlorothiazide -Incidental finding of nodule in the adrenal gland patient will benefit from adrenal phase CT scan or an MRI as an outpatient -Paroxysmal atrial fibrillation presently sinus rhythm coagulation with Eliquis -Hyperlipidemia -Hypertension -Hypothyroidism For above-mentioned text chronic medical problems patient was resumed on appropriate home medications Patient Condition at Discharge: Fair Plan - Discharge Summary New Discharge Prescriptions: Continue metFORMIN HCL [Glucophage] 500 mg PO BID Apixaban [Eliquis] 5 mg PO BID #60 tab Valsartan [Diovan] 320 mg PO DAILY Atorvastatin Calcium [Lipitor] 40 mg PO HS traMADol HCL 50 mg PO HS Acetaminophen-Codeine 300-30mg [Tylenol w/codeine #3] 1 tab PO HS carvediloL [Coreg] 6.25 mg PO BID Ferrous Sulfate [Slow Release Iron] 280 mg PO DAILY Acetaminophen [Tylenol Arthritis] 1,300 mg PO HS Acetaminophen/Diphenhydramine [Tylenol PM 500-25mg] 1 tab PO HS Triamterene/Hydrochlorothiazid [Triamterene-Hctz 37.5-25 mg Tb] 1 tab PO DAILY Magnesium Chloride [Mag64] 128 mg PO DAILY Discharge Medication List metFORMIN HCL [Glucophage] 500 mg PO BID 01/12/15 [History] Apixaban [Eliquis] 5 mg PO BID #60 tab 09/03/18 [Rx] Atorvastatin Calcium [Lipitor] 40 mg PO HS 02/27/21 [History] Valsartan [Diovan] 320 mg PO DAILY 02/27/21 [History] Acetaminophen [Tylenol Arthritis] 1,300 mg PO HS 07/20/24 [History] Acetaminophen-Codeine 300-30mg [Tylenol w/codeine #3] 1 tab PO HS 07/20/24 [History] Acetaminophen/Diphenhydramine [Tylenol PM 500-25mg] 1 tab PO HS 07/20/24 [History] Ferrous Sulfate [Slow Release Iron] 280 mg PO DAILY 07/20/24 [History] Magnesium Chloride [Mag64] 128 mg PO DAILY 07/20/24 [History] Triamterene/Hydrochlorothiazid [Triamterene-Hctz 37.5-25 mg Tb] 1 tab PO DAILY 07/20/24 [History] carvediloL [Coreg] 6.25 mg PO BID 07/20/24 [History] traMADol HCL 50 mg PO HS 07/20/24 [History] Follow up Appointment(s)/Referral(s): Lashawn Peterson MD [Primary Care Provider] - 3 Days Discharge Disposition: HOME SELF-CARE
[2024-07-20] MEDS ORDERED: NON FORMULARY DRUG (Triamterene/Hydrochlorothiazid [Triamterene-Hctz 37.5-25 Mg Tb] 1 EACH PO SCH (11:45)
[2024-07-20 13:41] LABS: Influenza A Not Detected (Not Detectd); Influenza B Not Detected (Not Detectd); RSV Not Detected (Not Detectd)
--- NOTE | 2024-07-20 14:22 | P.CRDCN ---
History of Present Illness History of present illness: HISTORY OF PRESENT ILLNESS: This is a 79-year-old female with a past medical history significant for atrial fibrillation, hyperlipidemia, hypertension, and GERD. Patient follows in [facility] with Dr. Herron. We have been asked to see the patient in consultation for chest pain. Patient examined at the bedside in the emergency room. Patient states she has had flulike symptoms for the past 2 to 3 days. She states that she woke up this morning around midnight with chest discomfort. She states that it woke her up from a sleep. She called EMS. She did receive nitro en route to the hospital but she states that her pain had already resolved at that point. She did have a reoccurrence of her chest pain once she was in the emergency room. However it subsided on its own. She states the pain lasted for approximately 10 minutes. She denied any radiation of the pain. She denies having any further episodes of chest pain at this time. The patient states she is scheduled for an outpatient stress test in August 11, 2024. However she does not feel comfortable going home at this time and would like to stay in the hospital for her stress test. DIAGNOSTICS: - EKG reveals sinus mechanism with right bundle branch block. No signs of acute ischemia. - Chest xray small amount of atelectasis and/or pneumonia versus aspiration of the right middle lung zone - Laboratory data: WBC 8.5. Hemoglobin 12.6. Platelet count 213. D-dimer 0.21. Sodium 134. Potassium 4.7. BUN 38. Creatinine 0.86. Opponent negative x 2. AST 75. ALT 52. Lipase 1018. proBNP 47. - Current home cardiac medications include carvedilol 6.25 mg twice a day, Eliquis 5 mg twice a day, Lipitor 40 mg at night, triamterene- hydrochlorothiazide 37-25 mg daily and valsartan 320 mg daily. - Most recent echocardiogram obtained in July 09, 2024 revealing ejection fraction 55 to 60%, moderate aortic regurgitation, mild mitral regurgitation, mild tricuspid regurgitation - Cardiac catheterization history: Unknown REVIEW OF SYSTEMS: At the time of my exam: CONSTITUTIONAL: Denies fever or chills. HEENT: Denies blurred vision, vision changes, or eye pain. Denies hemoptysis CARDIOVASCULAR: Denies chest pain. Denies orthopnea. Denies PND. Denies palpitations RESPIRATORY: Denies shortness of breath. GASTROINTESTINAL: Denies abdominal pain. Denies nausea or vomiting. HEMATOLOGIC: Denies bleeding disorders. GENITOURINARY: Denies any blood in urine. SKIN: Denies pruitis. Denies rash. PHYSICAL EXAM: VITAL SIGNS: Reviewed. GENERAL: Well-developed in no acute distress. HEENT: Head is normocephalic. Pupils are equal, round. Sclerae anicteric. Mucous membranes of the mouth are moist. Neck supple. No JVD or thyromegaly LUNGS: Respirations even and unlabored. Lungs essentially clear to auscultation bilaterally. HEART: Regular rate and rhythm. S1 and S2 heard. ABDOMEN: Soft. Nondistended. Nontender. EXTREMITIES: Normal range of motion. No clubbing or cyanosis. Peripheral pulses intact. No lower extremity edema NEUROLOGIC: Awake and alert. Oriented x 3. ASSESSMENT: Chest pain, appears noncardiac, troponin negative x 2 Flulike symptoms x 2 to 3 days, viral panel negative Paroxysmal atrial fibrillation Hyperlipidemia Hypertension GERD PLAN: An acute coronary event has been ruled out No need to repeat echocardiogram as this was performed in the office on 07/09/2024 Resume home cardiac medications including valsartan, triamterene- hydrochlorothiazide, Lipitor, and Eliquis Per Dr. Cabrera, hold carvedilol until after stress testing despite Lexiscan not being rate dependent Continue telemetry monitoring NPO at midnight Patient to undergo Lexiscan stress test tomorrow Further recommendations pending patient course Patient to follow-up postdischarge with Dr. Herron Nurse practitioner note has been reviewed by physician. Signing provider agrees with the documented findings, assessment, and plan of care documented by MANAGER INTERNET as a scribe. Past Medical History Past Medical History: Atrial Fibrillation, Cancer, Diabetes Mellitus, GERD/Reflu x, Hyperlipidemia, Hypertension, Thyroid Disorder Additional Past Medical History / Comment(s): occas. palpitations. Hx. melanoma, overactive thyroid History of Any Multi-Drug Resistant Organisms: None Reported Past Surgical History: Cholecystectomy, Hysterectomy Additional Past Surgical History / Comment(s): L thyroidectomy, skin cancer removed, COLONOSCOPY Past Anesthesia/Blood Transfusion Reactions: No Reported Reaction Additional Past Anesthesia/Blood Transfusion Reaction / Comment(s): no blood transfusion Past Psychological History: No Psychological Hx Reported Smoking Status: Never smoker Past Alcohol Use History: None Reported Past Drug Use History: None Reported - Past Family History Mother Family Medical History: No Reported History Medications and Allergies Home Medications Medication Instructions Recorded Confirmed Type metFORMIN HCL [Glucophage] 500 mg PO BID 01/12/15 07/20/24 History Apixaban [Eliquis] 5 mg PO BID #60 tab 09/03/18 07/20/24 Rx Atorvastatin Calcium [Lipitor] 40 mg PO HS 02/27/21 07/20/24 History Valsartan [Diovan] 320 mg PO DAILY 02/27/21 07/20/24 History Acetaminophen [Tylenol Arthritis] 1,300 mg PO HS 07/20/24 07/20/24 History Acetaminophen-Codeine 300-30mg 1 tab PO HS 07/20/24 07/20/24 History [Tylenol w/codeine #3] Acetaminophen/Diphenhydramine 1 tab PO HS 07/20/24 07/20/24 History [Tylenol PM 500-25mg] Ferrous Sulfate [Slow Release Iron] 280 mg PO DAILY 07/20/24 07/20/24 History Magnesium Chloride [Mag64] 128 mg PO DAILY 07/20/24 07/20/24 History Triamterene/Hydrochlorothiazid 1 tab PO DAILY 07/20/24 07/20/24 History [Triamterene-Hctz 37.5-25 mg Tb] carvediloL [Coreg] 6.25 mg PO BID 07/20/24 07/20/24 History traMADol HCL 50 mg PO HS 07/20/24 07/20/24 History Allergies Allergy/AdvReac Type Severity Reaction Status Date / Time Sulfa (Sulfonamide Allergy Rash/Hives Verified 07/20/24 07:08 Antibiotics) Physical Exam Vitals: Vital Signs Temp Pulse Resp BP Pulse Ox 07/20/24 08:33 97.3 F L 63 16 122/64 97 07/20/24 06:40 75 18 118/83 97 07/20/24 03:12 69 16 140/68 100 07/20/24 01:32 98.1 F 72 18 148/77 99 Intake and Output 07/19/24 07/20/24 07/20/24 22:59 06:59 14:59 Other: Weight 130.635 kg Results 07/20/24 01:37 07/20/24 01:37 Cardiac Enzymes 07/20/24 07/20/24 07/20/24 Range/Units 01:37 01:37 12:42 AST 75 H (14-36) U/L Troponin I <0.012 <0.012 (0.000-0.034) ng/mL Coagulation 07/20/24 Range/Units 01:37 PT 11.5 (10.0-12.5) sec APTT 26.1 (22.0-30.0) sec CBC 07/20/24 Range/Units 01:37 WBC 8.5 (3.8-10.6) k/uL RBC 5.03 (3.80-5.40) m/uL Hgb 12.6 (11.4-16.0) gm/dL Hct 40.4 (34.0-46.0) % Plt Count 213 (150-450) k/uL Comprehensive Metabolic Panel 07/20/24 Range/Units 01:37 Sodium 134 L (137-145) mmol/L Potassium 4.7 (3.5-5.1) mmol/L Chloride 103 (98-107) mmol/L Carbon Dioxide 14 L (22-30) mmol/L BUN 38 H (7-17) mg/dL Creatinine 0.86 (0.52-1.04) mg/dL Glucose 103 H (74-99) mg/dL Calcium 10.1 (8.4-10.2) mg/dL AST 75 H (14-36) U/L ALT 52 H (4-34) U/L Alkaline Phosphatase 88 (38-126) U/L Total Protein 7.5 (6.3-8.2) g/dL Albumin 4.5 (3.5-5.0) g/dL Current Medications Generic Name Dose Route Start Last Admin Trade Name Freq PRN Reason Stop Dose Admin Acetaminophen 1,000 mg 07/20/24 21:00 Acetaminophen Tab 500 Mg Tab PO HS [facility] Acetaminophen/Codeine Phosphate 1 each 07/20/24 21:00 Acetaminophen-Codeine 300-30mg Tab PO HS [facility] Aminophylline 100 mg 07/21/24 06:00 Aminophylline 500 Mg/20 Ml Vial IV 07/21/24 23:00 ONCE PRN Patient Response Apixaban 5 mg 07/20/24 21:00 Apixaban 5 Mg Tab PO BID [facility] Protocol Atorvastatin Calcium 40 mg 07/20/24 21:00 Atorvastatin 40 Mg Tab PO HS [facility] Caffeine Citrate 60 mg 07/21/24 06:00 Caffeine Citrate 60 Mg/3 Ml Vial IV 07/21/24 23:00 ONCE PRN Patient Response Carvedilol 6.25 mg 07/21/24 17:30 Carvedilol 6.25 Mg Tab PO AC-BID [facility] Metformin HCl 500 mg 07/20/24 21:00 Metformin 500 Mg Tab PO BID [facility] Naloxone HCl 0.2 mg 07/20/24 04:04 Naloxone 0.4 Mg/Ml 1 Ml Vial IV Q2M PRN Opioid Reversal Ondansetron HCl 4 mg 07/20/24 04:04 Ondansetron 4 Mg/2 Ml Vial IVP Q8HR PRN Nausea And Vomiting Regadenoson 0.4 mg 07/21/24 06:00 Regadenoson 0.4 Mg/5 Ml Syringe IV 07/21/24 23:00 ONCE PRN Per Protocol Tramadol HCl 50 mg 07/20/24 21:00 Tramadol 50 Mg Tab PO HS [facility] Intake and Output 07/19/24 07/20/24 07/20/24 22:59 06:59 14:59 Other: Weight 130.635 kg 07/20/24 01:37 07/20/24 01:37
[2024-07-20] MEDS ORDERED: carvediloL 6.25 MG TAB PO SCH ×2 (17:30→21:00)
[2024-07-20] MEDS: ACETAMINOPHEN TAB 500 MG TAB PO SCH (20:35)
[2024-07-20] MEDS: metFORMIN 500 MG TAB PO SCH (20:35)
[2024-07-20] MEDS: Acetaminophen-Codeine 300-30mg TAB PO SCH (20:36)
[2024-07-20] MEDS: APIXABAN 5 MG TAB PO SCH (20:36)
[2024-07-20] MEDS: traMADol 50 MG TAB PO SCH (20:37)
[2024-07-20] MEDS: ATORVASTATIN 40 MG TAB PO SCH (20:37)
[2024-07-21] MEDS ORDERED: REGADENOSON 0.4 MG/5 ML SYRINGE IV PRN (06:00)
[2024-07-21] MEDS ORDERED: AMINOPHYLLINE 500 MG/20 ML VIAL IV PRN (06:00)
[2024-07-21] MEDS ORDERED: CAFFEINE CITRATE 60 MG/3 ML VIAL IV PRN (06:00)
[2024-07-21 07:42] VITALS: RESP 16
[2024-07-21 09:21] LABS: Basophils # (A) 0.04 X 10*3/uL (0.00-0.10); Basophils % (A) 0.5 %; Eosinophils # (A) 0.32 X 10*3/uL (0.04-0.35); Eosinophils % (A) 3.7 %; HCT 39.5 % (37.2-46.3); HGB 12.2 g/dL (12.0-15.0); Lymphocytes # (A) 3.39 X 10*3/uL (0.90-5.00); Lymphocytes % (A) 38.8 %; MCH 25.2 pg (27.0-32.0); MCHC 30.9 g/dL (32.0-37.0); MCV 81.4 FL (80.0-97.0); Mean Platelet Volume 11.5 FL (9.5-12.2); Monocytes # (A) 0.72 X 10*3/uL (0.20-1.00); Monocytes % (A) 8.2 %; NRBC Per 100 WBC 0 X 10*3/uL (0.00-0.01); Neutrophils # (A) 4.24 X 10*3/uL (1.80-7.70); Neutrophils % (A) 48.6 %; Platelet Count 238 X 10*3/uL (140-440); RBC 4.85 X 10*6/uL (4.10-5.20); RDW 15.9 % (11.5-14.5); WBC 8.73 X 10*3/uL (4.50-10.00)
[2024-07-21 09:51] LABS: ALT 60 U/L (8-44); AST 55 U/L (13-35); Albumin 4.1 g/dL (3.8-4.9); Albumin/Globulin Ratio 1.64 Ratio (1.60-3.17); Alkaline Phosphatase 102 U/L (41-126); Blood Urea Nitrogen 29.7 mg/dL (9.0-27.0); Calcium 9.5 mg/dL (8.7-10.3); Chloride 107 mmol/L (96-109); Globulin 2.5 g/dL (1.6-3.3); Glucose 107 mg/dL (70-110); Potassium 4.3 mmol/L (3.5-5.5); Sodium 136 mmol/L (135-145); Total Bilirubin 0.3 mg/dL (0.3-1.2); Total Protein 6.6 g/dL (6.2-8.2)
[2024-07-21 10:09] LABS: Lipase 370 U/L (14-63)
[2024-07-21] MEDS: VALSARTAN 160 MG TAB PO SCH (10:53)
--- NOTE | 2024-07-21 11:56 | P.PN ---
Subjective Progress Note Date: 07/21/24 HISTORY OF PRESENT ILLNESS: This is a 79-year-old female with a past medical history significant for atrial fibrillation, hyperlipidemia, hypertension, and GERD. Patient follows in the office with Dr. Herron. We have been asked to see the patient in consultation for chest pain. Patient examined at the bedside in the emergency room. Patient states she has had flulike symptoms for the past 2 to 3 days. She states that she woke up this morning around midnight with chest discomfort. She states that it woke her up from a sleep. She called EMS. She did receive nitro en route to the hospital but she states that her pain had already resolved at that point. She did have a reoccurrence of her chest pain once she was in the emergency room. However it subsided on its own. She states the pain lasted for approximately 10 minutes. She denied any radiation of the pain. She denies having any further episodes of chest pain at this time. The patient states she is scheduled for an outpatient stress test in August 11, 2024. However she does not feel comfortable going home at this time and would like to stay in the hospital for her stress test. DIAGNOSTICS: - EKG reveals sinus mechanism with right bundle branch block. No signs of acute ischemia. - Chest xray small amount of atelectasis and/or pneumonia versus aspiration of the right middle lung zone - Laboratory data: WBC 8.5. Hemoglobin 12.6. Platelet count 213. D-dimer 0.21. Sodium 134. Potassium 4.7. BUN 38. Creatinine 0.86. Opponent negative x 2. AST 75. ALT 52. Lipase 1018. proBNP 47. - Current home cardiac medications include carvedilol 6.25 mg twice a day, Eliquis 5 mg twice a day, Lipitor 40 mg at night, triamterene- hydrochlorothiazide 37-25 mg daily and valsartan 320 mg daily. - Most recent echocardiogram obtained in July 09, 2024 revealing ejection fraction 55 to 60%, moderate aortic regurgitation, mild mitral regurgitation, mild tricuspid regurgitation - Cardiac catheterization history: Unknown Patient seen and examined. She is now on the observation unit. Patient states her chest pain is all gone. No chest pressure or tightness. She denies shortness of breath. She is scheduled for Lexiscan Cardiolite stress test today. Blood pressure 121/69, heart rate 66, pulse ox 98% on room air. Repeat blood work reveals CBC is unremarkable. BUN 29 creatinine 0.9. AST 55, ALT 60. Lipase 370. PHYSICAL EXAM: VITAL SIGNS: Reviewed. GENERAL: Well-developed in no acute distress. HEENT: Head is normocephalic. Pupils are equal, round. Sclerae anicteric. Mucous membranes of the mouth are moist. Neck supple. No JVD or thyromegaly LUNGS: Respirations even and unlabored. Lungs essentially clear to auscultation bilaterally. HEART: Regular rate and rhythm. S1 and S2 heard. ABDOMEN: Soft. Nondistended. Nontender. EXTREMITIES: Normal range of motion. No clubbing or cyanosis. Peripheral pulses intact. No lower extremity edema NEUROLOGIC: Awake and alert. Oriented x 3. ASSESSMENT: Chest pain, appears noncardiac, troponin negative x 2 Flulike symptoms x 2 to 3 days, viral panel negative Paroxysmal atrial fibrillation Hyperlipidemia Hypertension GERD PLAN: An acute coronary event has been ruled out No need to repeat echocardiogram as this was performed in the office on 07/09/2024 Continue home cardiac medications including valsartan, triamterene- hydrochlorothiazide, Lipitor, and Eliquis Patient may resume Coreg after stress test Patient to undergo Lexiscan stress test today If stress test is unremarkable, patient is cleared for discharge from cardiology. Patient to follow-up postdischarge with Dr. Herron Nurse practitioner note has been reviewed by physician. Signing provider agrees with the documented findings, assessment, and plan of care documented by LIE DETECTOR OPERATOR as a scribe. Objective - Vital Signs Vital signs: Vital Signs Temp 97.5 F L 07/21/24 07:00 Pulse 66 07/21/24 07:00 Resp 16 07/21/24 07:00 BP 121/69 07/21/24 07:00 Pulse Ox 98 07/21/24 07:00 FiO2 Intake & Output 07/20/24 07/21/24 07/21/24 18:59 06:59 18:59 Weight 130.635 kg Other: Voiding Method Toilet # Voids 2 - Labs CBC & Chem 7: 07/21/24 04:37 07/21/24 04:42
--- NOTE | 2024-07-21 13:23 | NM ---
EXAMINATION TYPE: NM stress lexiscan cardiolite DATE OF EXAM: 07/21/2024 COMPARISON: NONE CLINICAL INDICATION: Female, 79 years old with history of CP; TECHNIQUE: After the intravenous administration of 10.05 mCi Tc 99m Sestamibi - Cardiolite resting S PECT images acquired 60 minutes post injection. The patient received 0.4mg Lexiscan, 24.5 mCi Tc 99m Sestamibi - Stress images obtained [address] injection FINDINGS: Review of stress and rest SPECT images demonstrates decreased perfusion along the inferior wall, more pronounced on rest suggesting possible attenuation artifact. However, old infarct is also a possibil ity. TID is abnormally increased at 1.25. No discrete reversibility seen. Gated analysis shows normal wall motion with an estimated left ventricular ejection fraction of 69 %. IMPRESSION: 1. Decreased perfusion along the inferior wall. The defect is larger on rest suggesting prominent mojgan phragmatic attenuation artifact. Some underlying old infarct here is also possible. 2. While no discrete reversibility is seen, the transient ischemic dilatation ratio is increased. Thi s may be seen in the setting of multivessel, global inducible ischemia. Further clinical correlation recommended. [facility], , 07/21/2024 1:21 PM
--- NOTE | 2024-07-21 13:34 | CA ---
Lexiscan Nuclear Stress Test Report Name: Maida Foster Exam Date: 07/21/2024 09:46 Exam Location: [place] Stress Ht (in): 66 Wt (lb): 288 BSA: 2.34 Ordering Phys: Cleopatra Colon Referring Phys: FELICIA Technologist: Walker Campo Age: 79 Gender: F : 1945 Procedure CPT: Indications: Reflex order-Stress test ICD-10 Codes: Patient History: Medications: see chart Meds past 24 hrs: Pretest Chest Pain: STRESS TEST Lexiscan Protocol Exercise Duration (min:sec): 02:[address] Depressions (mm): Angina Score: Calabrese Score: Resting HR (bpm): 76 Peak HR (bpm): 108 Resting BP (mmHg): 113 / 70 Peak BP (mmHg): 155 / 51 MPHR: 140 Target HR: 119 % MPHR: 77 METS: 1.0 Total Dose: Peak Dose: Atropine: Double Product: 16967 BP Response: Stress Termination: INFUSION COMPLETE Stress Symptoms: NO SYMPTOMS Stress Summary: ECG ANALYSIS Resting ECG: Sinus rhythm. Right bundle branch block. No arrhythmias. Stress ECG: No ECG changes from baseline with Lexiscan infusion. CONCLUSIONS No ECG evidence of ischemia with Lexiscan infusion. Nuclear test results to follow. Dr. Jonathan Lloyd MD (Electronically Signed) Final Date: 21 July 2024 13:33
[2024-07-21 14:11] VITALS: BP 113/71; PULSE 84; TEMP 97.9
[2024-07-21] MEDS: carvediloL 6.25 MG TAB PO SCH (17:07)
== END 2024-07-21 17:34 | disposition home or self-care (01) ==
LOC: EC 01:31 → 6NMEDSUR 04:05
PROVIDERS: ADMIT Hospitalist; ATTEND Hospitalist
DX: R07.2 Precordial pain (principal); I48.0 Paroxysmal atrial fibrillation; R74.8 Abnormal levels of other serum enzymes; E11.9 Type 2 diabetes mellitus without complications; I10 Essential (primary) hypertension; E89.0 Postprocedural hypothyroidism; K21.9 Gastro-esophageal reflux disease without esophagitis; E78.5 Hyperlipidemia, unspecified; E87.1 Hypo-osmolality and hyponatremia; E27.8 Other specified disorders of adrenal gland; Z11.52 Encounter for screening for COVID-19; Z85.820 Personal history of malignant melanoma of skin; Z90.49 Acquired absence of other specified parts of digestive tract; Z79.01 Long term (current) use of anticoagulants; Z79.84 Long term (current) use of oral hypoglycemic drugs; Z79.899 Other long term (current) drug therapy; Z88.2 Allergy status to sulfonamides
CPT/HCPCS: 96374; 99285; 36415; 93005; 93017; 85379; 83880; 80053 ×2; 83690 ×2; 83735; 84484; 85025 ×2; 85610; 85730; 87636; 71045; 74177; 78452; G0378 ×2; A9500; J2270; Q9967